=== PATIENT | male | born 1990 | race Caucasian/White ===

== ENCOUNTER → 2018-05-06 17:05 | Outpatient (CLI) | payer OTHER, MEDICAID, SELFPAY ==
[2018-05-06 18:07] LABS: Aspartate Aminotransferase 27 IU/L (17-59); BUN Creatinine Ratio 26.7 (6-22); Blood Urea Nitrogen 16 mg/dL (9-20); Calcium 10.4 mg/dL (8.4-10.2); Carbon Dioxide 25 mmol/L (22-32); Chloride 102 mmol/L (98-107); Cholesterol 134 mg/dL (140-199); Estimated Glomerular Filt Rate > 60.0 mL/min (>60); Glucose 167 mg/dL (70-100); HDL Cholesterol 25 mg/dL (40-60); HEMOLYSIS < 15 (0-50); LDL Cholesterol Calculated 38 mg/dL (<100); Potassium 4.4 mmol/L (3.4-5.1); Sodium 143 mmol/L (137-145); Triglycerides 356 mg/dL (35-150)
== END ==
PROVIDERS: Family Provider Internal Medicine; PCP Internal Medicine; Visit Provider Internal Medicine
DX: E78.00 Pure hypercholesterolemia, unspecified (principal); E11.9 Type 2 diabetes mellitus without complications
CPT/HCPCS: 36415; 80048; 80061; 83036; 84450

== ENCOUNTER 2018-06-23 19:36 | Emergency (ER) | payer OTHER, MEDICAID, SELFPAY ==
[2018-06-23 19:45] VITALS: BP 125/80; PULSE 87; RESP 19; TEMP 36.8; O2SAT 98; BMI 32.0
[2018-06-23] MEDS: ONDANSETRON 4 MG/2 ML INJ IV (20:50)
[2018-06-23] MEDS: PANTOPRAZOLE 40 MG VIAL IV (20:50)
[2018-06-23 20:56] LABS: Add Manual Diff / Slide Review NO; Basophils Percent Auto 0.9 % (0-2); Eosinophils Percent Auto 2.5 % (2-4); Hematocrit 44.6 % (41-53); Hemoglobin 15.5 g/dL (13.5-17.5); Lymphocytes Percent Auto 40.5 % (25-40); Mean Corpuscular HGB Conc 34.8 % (30-36); Mean Corpuscular Hemoglobin 27.8 PG (26-34); Mean Corpuscular Volume 80.1 fL (80-100); Monocytes Percent Auto 7.1 % (3-14); Neutrophils Absolute Auto 2800 /uL (3000-5900); Platelet Count 172 X10^3/uL (150-400); Red Blood Cell Count 5.57 X10^6/uL (4.5-5.9); Red Cell Distribution Width 13.7 % (11.6-14.8); White Blood Cell Count 5.8 X10^3/uL (4.5-11.0)
[2018-06-23 21:07] LABS: INR 1.1 (0.9-1.3); Prothrombin Time 12.3 SECONDS (10.1-12.7)
[2018-06-23 21:09] LABS: PTT Partial Thromboplastin Tim 31 SECONDS (26.4-36.2)
[2018-06-23 21:12] LABS: Alanine Aminotransferase 41 IU/L (21-72); Albumin 5.3 g/dL (3.5-5.0); Albumin Globulin Ratio 2.1 (1.0-2.8); Alkaline Phosphatase 45 U/L (38-126); Aspartate Aminotransferase 36 IU/L (17-59); BUN Creatinine Ratio 24.3 (6-22); Bilirubin Total 0.7 mg/dL (0.2-1.3); Blood Urea Nitrogen 17 mg/dL (9-20); Calcium 10.1 mg/dL (8.4-10.2); Carbon Dioxide 24 mmol/L (22-32); Chloride 100 mmol/L (98-107); Estimated Glomerular Filt Rate > 60.0 mL/min (>60); Globulin 2.5 g/dL (1.7-4.1); Glucose 156 mg/dL (70-100); HEMOLYSIS < 15 (0-50); Potassium 4.1 mmol/L (3.4-5.1); Sodium 140 mmol/L (137-145); Total Protein 7.8 g/dL (6.3-8.2)
[2018-06-23 21:30] VITALS: BP 114/70; PULSE 74; RESP 22; O2SAT 99
[2018-06-23 22:00] VITALS: BP 122/74; PULSE 75; RESP 14; O2SAT 100
--- NOTE | 2018-06-23 22:14 | ED_ITS ---
HPI - GI Bleed General Chief complaint: GI Bleed Stated complaint: lots of blood in stool, feels faint Time Seen by Provider: 06/23/18 20:21 Source: patient and family Mode of arrival: ambulatory Limitations: no limitations History of Present Illness HPI Narrative: 27-year-old nonsmoker presents with both parents with a chief complaint of painless bright red blood per rectum prior to arrival. He denies any nausea or vomiting. He denies any history of the same. He does admit to some generalized abdominal discomfort that is crampy in nature. He denies use of blood thinners or significant Motrin. He drinks no alcohol. He denies any recent significant straining on the toilet with bowel movements MD complaint: gross hematochezia Onset (ago): hour(s) Pain Consistency: intermittent Severity: moderate Relieving factors: none Exacerbating factors: none Associated symptoms: abdominal pain Treatments Prior to Arrival: none Related Data Home Medications Medication Instructions Recorded Confirmed sertraline 100 mg PO QAM #0 01/06/11 BORON/CA/CU/MG/MN/VIT D/ZINC 1 tab PO Q DAY #0 09/22/11 (#CALCIUM 600 + MINERALS) CYANOCOBALAMIN (VITAMIN B-12) 1,000 mcg PO QDAY #0 09/22/11 FENOFIBRATE (#TRICOR) 160 mg PO QDAY #0 03/06/12 divalproex [Depakote ER] 1,000 mg PO QDAY #0 01/12/17 divalproex [Depakote ER] 250 mg PO QDAY #0 01/12/17 magnesium citrate 250 mg PO QDAY #0 01/12/17 metformin [Glucophage XR] 1,000 mg PO BID #0 01/12/17 Allergies Allergy/AdvReac Type Severity Reaction Status Date / Time Penicillins [PENICILLINS] Allergy Severe rash Verified 06/23/18 19:51 Sulfa (Sulfonamide Allergy Severe bones itch Verified 06/23/18 19:51 Antibiotics) [SULFA (SULFONAMIDE ANTIBIOTICS)] ziprasidone [ZIPRASIDONE] AdvReac Severe locked Verified 06/23/18 19:51 muscles, hypotension Review of Systems Review of Systems All systems reviewed & are unremarkable except as noted in HPI and below Constitutional Denies chills, Denies fever(s), Denies lethargy and Denies weakness Eyes Denies change in vision, Denies eye discharge, Denies irritation and Denies loss of vision ENT Ears, Nose, Mouth, and Throat: Denies change in voice, Denies neck pain and Denies sore throat Cardiovascular Denies chest pain, Denies irregular heart rhythm, Denies lightheadedness, Denies palpitations, Denies dyspnea, Denies dyspnea on exertion and Denies orthopnea Respiratory Denies cough, Denies dyspnea, Denies dyspnea on exertion and Denies wheezing Gastrointestinal Gastrointestinal: Denies abdominal pain, Reports hematochezia, Denies change in bowel habits, Denies diarrhea, Denies nausea and Denies vomiting Genitourinary Denies hematuria, Denies flank pain, Denies urinary incontinence and Denies urinary urgency Musculoskeletal Denies neck pain Integumentary/Breasts Denies pruritus, Denies erythema, Denies rash and Denies wounds Neurologic Denies confusion, Denies loss of vision and Denies weakness Psychiatric Denies anxiety, Denies confusion, Denies depression, Denies homicidal ideation and Denies suicidal ideation Endocrine Denies palpitations Hematologic/Lymphatic Denies easy bruising Allergic/Immunologic Denies wheezing [facility] Social History Smoking Status: Never smoker Exam Narrative Exam Narrative: GENERAL: This is a well-nourished, well-developed patient, in mild distress. HEAD: Atraumatic. Normocephalic. No temporal or scalp tenderness. EYES: Pupils equal round and reactive. Extraocular motions intact. No scleral icterus. No injection or drainage. ENT: Nose without bleeding, purulent drainage or septal hematoma. Throat without erythema, tonsillar hypertrophy or exudate. Uvula midline. Airway patent. NECK: Trachea midline. No JVD or lymphadenopathy. Supple, nontender, no meningeal signs. CARDIOVASCULAR: Regular rate and rhythm without murmurs, gallops, or rubs. RESPIRATORY: Clear to auscultation. Breath sounds equal bilaterally. No wheezes , rales, or rhonchi. GASTROINTESTINAL: Abdomen soft, non-tender, nondistended. No hepato-splenomegaly , or palpable masses. No guarding. RECTAL: Very minimal bright red blood, no obvious active bleeding. No hemorrhoid, fissure or significant tenderness noted on exam EXTREMITIES: No clubbing, cyanosis, or edema. No joint tenderness, effusion, or edema noted. BACK: Nontender without deformity or crepitance. No flank tenderness. NEURO: AOx3. SKIN: No rash or erythema. Initial Vital Signs Initial Vital Signs: Vital Signs Temperature 98.3 F 06/23/18 19:45 Pulse Rate 87 06/23/18 19:45 Respiratory Rate 19 06/23/18 19:45 Blood Pressure 125/80 06/23/18 19:45 Pulse Oximetry 98 06/23/18 19:45 Course Orders Ordered: ED Orders 06/23/18 20:36 Complete Blood Count AUTO DIFF Stat Comprehensive Metabolic Panel Stat Partial Thromboplastin Time Stat Prothrombin Time INR Stat Type and Screen Stat Discontinued Medications Ondansetron HCl (Zofran) 4 mg IV NOW ONE Stop: 06/23/18 20:32 Last Admin: 06/23/18 20:50 Dose: 4 mg Pantoprazole Sodium (Protonix) 40 mg IV NOW ONE Stop: 06/23/18 20:32 Last Admin: 06/23/18 20:50 Dose: 40 mg Vital Signs - 8 hr 06/23/18 21:30 06/23/18 22:00 Pulse Rate 74 75 Respiratory Rate 22 14 Blood Pressure [Right Arm] 114/70 122/74 Pulse Oximetry 99 100 MDM - GI Bleed Differential Diagnosis Likely hemorrhoids, infectious diarrhea, esophageal varices, Susan-Evans syndrome, Upper gastrointestinal hemorrhage, Lower gastrointestinal hemorrhage, hematochezia, melena and anal fissure Medical Records Attestation: I reviewed the patient's medical records. Lab Data Attestation: I reviewed the patient's lab results. Result diagrams: 06/23/18 20:36 06/23/18 20:36 Lab Results 06/23/18 06/23/18 06/23/18 Range/Units 20:36 20:36 20:36 WBC 5.8 (4.5-11.0) X10^3/uL RBC 5.57 (4.5-5.9) X10^6/uL Hgb 15.5 (13.5-17.5) g/dL Hct 44.6 (41-53) % MCV 80.1 (80-100) fL MCH 27.8 (26-34) PG MCHC 34.8 (30-36) % RDW 13.7 (11.6-14.8) % Plt Count 172 (150-400) X10^3/uL Neut % (Auto) 49.0 L (50-75) % Lymph % (Auto) 40.5 H (25-40) % [place] % (Auto) 7.1 (3-14) % Eos % (Auto) 2.5 (2-4) % Baso % (Auto) 0.9 (0-2) % Neut # (Auto) 2800 L (7465-4122) /uL PT 12.3 (10.1-12.7) SECONDS INR 1.1 (0.9-1.3) APTT 31 (26.4-36.2) SECONDS Sodium 140 (137-145) mmol/L Potassium 4.1 (3.4-5.1) mmol/L Chloride 100 (98-107) mmol/L Carbon Dioxide 24 (22-32) mmol/L BUN 17 (9-20) mg/dL Creatinine 0.70 (0.66-1.25) mg/dL Estimated GFR > 60.0 (>60) mL/min BUN/Creatinine Ratio 24.3 H (6-22) Glucose 156 H (70-100) mg/dL Calcium 10.1 (8.4-10.2) mg/dL Total Bilirubin 0.7 (0.2-1.3) mg/dL AST 36 (17-59) IU/L ALT 41 (21-72) IU/L Alkaline Phosphatase 45 (38-126) U/L Total Protein 7.8 (6.3-8.2) g/dL Albumin 5.3 H (3.5-5.0) g/dL Globulin 2.5 (1.7-4.1) g/dL Albumin/Globulin Ratio 2.1 (1.0-2.8) Blood Type Antibody Screen 06/23/18 Range/Units 20:36 WBC (4.5-11.0) X10^3/uL RBC (4.5-5.9) X10^6/uL Hgb (13.5-17.5) g/dL Hct (41-53) % MCV (80-100) fL MCH (26-34) PG MCHC (30-36) % RDW (11.6-14.8) % Plt Count (150-400) X10^3/uL Neut % (Auto) (50-75) % Lymph % (Auto) (25-40) % [place] % (Auto) (3-14) % Eos % (Auto) (2-4) % Baso % (Auto) (0-2) % Neut # (Auto) (8001-0329) /uL PT (10.1-12.7) SECONDS INR (0.9-1.3) APTT (26.4-36.2) SECONDS Sodium (137-145) mmol/L Potassium (3.4-5.1) mmol/L Chloride (98-107) mmol/L Carbon Dioxide (22-32) mmol/L BUN (9-20) mg/dL Creatinine (0.66-1.25) mg/dL Estimated GFR (>60) mL/min BUN/Creatinine Ratio (6-22) Glucose (70-100) mg/dL Calcium (8.4-10.2) mg/dL Total Bilirubin (0.2-1.3) mg/dL AST (17-59) IU/L ALT (21-72) IU/L Alkaline Phosphatase (38-126) U/L Total Protein (6.3-8.2) g/dL Albumin (3.5-5.0) g/dL Globulin (1.7-4.1) g/dL Albumin/Globulin Ratio (1.0-2.8) Blood Type A Negative Antibody Screen Negative Point of Care Testing Stool Occult Blood Positive MDM Narrative Medical decision making narrative: 27-year-old male presents with painless of rectal bleeding, normal vitals and normal labs. Minimal bleeding during visit, patient feeling well and will go home with parents, to follow up with primary care provider for a likely colonoscopy as an outpatient Discharge Plan Departure Patient Disposition: Home Clinical Impression: Bright red rectal bleeding Discharge Date/Time: 06/23/18 22:32 Interventions: ED Discharge Assessment Last Done: 06/23/18 22:31 Instructions: DI for Rectal Bleeding Activity Restrictions/Additional Instructions: *You have been diagnosed with [ rectal bleeding ] *What to do: *Follow up with your primary care provider in 2-3 days, call for an appointment. Let them know you were seen in the Emergency Department and that we ask that you be seen in follow up. 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 You will likely need a colonoscopy and at this hospital performs that procedure. *Return to ER if you should have any new, worsening or concerning symptoms such as increased bleeding, pain, fever over 101F or other bothersome symptoms *Drink plenty of fluids with frequent small sips. * For the next 24 hours a clear liquid diet is advised. After that please employ a brat diet which would include bananas, rice, apples, toast. Prescriptions: No Action sertraline 100 MG tablet 100 mg PO QAM Qty: 0 RF: 0 BORON/CA/CU/MG/MN/VIT D/ZINC (#CALCIUM 600 + MINERALS) 1 tab PO Q DAY Qty: 0 RF: 0 CYANOCOBALAMIN (VITAMIN B-12) 1,000 mcg PO QDAY Qty: 0 RF: 0 FENOFIBRATE (#TRICOR) 160 mg PO QDAY Qty: 0 RF: 0 divalproex [Depakote ER] 500 MG tablet extended release 24 hr 1,000 mg PO QDAY Qty: 0 RF: 0 divalproex [Depakote ER] 250 MG tablet extended release 24 hr 250 mg PO QDAY Qty: 0 RF: 0 metformin [Glucophage XR] 500 MG tablet extended release 24 hr 1,000 mg PO BID Qty: 0 RF: 0 magnesium citrate 100 MG tablet 250 mg PO QDAY Qty: 0 RF: 0 Referrals: Can Askew MD [Primary Care Provider] - Trixie Guillen MD [Physician] -
== END 2018-06-23 22:32 | disposition home or self-care (01) ==
PROVIDERS: Emergency Provider Emergency Medicine; Family Provider Internal Medicine; PCP Internal Medicine
DX: K62.5 Hemorrhage of anus and rectum (principal)
CPT/HCPCS: 36591; 80053; 82272; 85025; 85610; 85730; 86850; 86900; 86901; 96374; 96375; 99283; 99284; C9113; J2405

== ENCOUNTER 2018-07-24 16:18 | Emergency (ER) | payer OTHER, MEDICAID, SELFPAY ==
[2018-07-24 16:21] VITALS: BP 137/89; PULSE 93; RESP 20; TEMP 36.7; O2SAT 96; BMI 33.0
[2018-07-24] MEDS: ONDANSETRON 4 MG/2 ML INJ IV (16:36)
[2018-07-24] MEDS: diphenhydrAMINE 50 MG/ML VIAL IV (16:42)
[2018-07-24 16:51] LABS: Add Manual Diff / Slide Review NO; Basophils Percent Auto 0.9 % (0-2); Hematocrit 42.8 % (41-53); Hemoglobin 14.8 g/dL (13.5-17.5); Lymphocytes Percent Auto 40.2 % (25-40); Mean Corpuscular HGB Conc 34.7 % (30-36); Mean Corpuscular Hemoglobin 27.7 PG (26-34); Mean Corpuscular Volume 79.8 fL (80-100); Monocytes Percent Auto 7.8 % (3-14); Neutrophils Absolute Auto 2400 /uL (3000-5900); Neutrophils Percent Auto 49.1 % (50-75); Platelet Count 170 X10^3/uL (150-400); Red Blood Cell Count 5.36 X10^6/uL (4.5-5.9); Red Cell Distribution Width 14.1 % (11.6-14.8); White Blood Cell Count 4.8 X10^3/uL (4.5-11.0)
--- NOTE | 2018-07-24 16:54 | DI.CT.S_ITS ---
PROCEDURE: CT ABDOMEN PELVIS W CON INDICATIONS: rlq pain TECHNIQUE: After the administration of intravenous contrast, 5 mm thick sections acquired from the diaphragm to the symphysis. 5 mm coronal and sagittal reformats were acquired. For radiation dose reduction, the following was used: automated exposure control, adjustment of mA and/or kV according to patient size. COMPARISON: None. FINDINGS: Image quality: Excellent. ABDOMEN: Lung bases: Lung bases are clear. Heart size is normal. Solid organs: Liver is normal in size and enhancement. Mild, diffuse fatty infiltration of the liver. Gallbladder is within normal limits. Biliary system is non dilated. Pancreas enhances normally. Spleen is normal in size and enhancement. No adrenal nodules. Kidneys demonstrate normal size and enhancement, without hydronephrosis. Peritoneum and bowel: Bowel loops demonstrate normal wall thickness and caliber. No free fluid or air. The appendix is normal. Nodes and vessels: No retroperitoneal or mesenteric adenopathy by size criteria. Aorta and inferior vena cava are normal in size. Miscellaneous: Small fat containing umbilical hernia. PELVIS: Genitourinary: Bladder wall thickness is normal. Miscellaneous: No inguinal hernias or adenopathy. Bones: No suspicious bony lesions. No vertebral body compression fractures. IMPRESSION: 1. The appendix is normal. 2. No free fluid or free air. 3. No dilated loops of bowel. 4. Hepatic steatosis. Dictated by: Devorah Owens MD, PhD on 07/24/2018 at 17:42 Approved by: Devorah Owens MD, PhD on 07/24/2018 at 17:44
[2018-07-24 16:58] LABS: INR 1.1 (0.9-1.3); Prothrombin Time 12.2 SECONDS (10.1-12.7)
[2018-07-24 17:00] LABS: PTT Partial Thromboplastin Tim 31 SECONDS (26.4-36.2)
[2018-07-24 17:04] LABS: Alanine Aminotransferase 29 IU/L (21-72); Albumin 5.1 g/dL (3.5-5.0); Albumin Globulin Ratio 2.4 (1.0-2.8); Alkaline Phosphatase 43 U/L (38-126); Aspartate Aminotransferase 27 IU/L (17-59); BUN Creatinine Ratio 21.4 (6-22); Bilirubin Total 0.8 mg/dL (0.2-1.3); Blood Urea Nitrogen 15 mg/dL (9-20); Calcium 9.9 mg/dL (8.4-10.2); Carbon Dioxide 20 mmol/L (22-32); Chloride 99 mmol/L (98-107); Estimated Glomerular Filt Rate > 60.0 mL/min (>60); Globulin 2.1 g/dL (1.7-4.1); Glucose 273 mg/dL (70-100); HEMOLYSIS 16 (0-50); Lipase 99 U/L (23-300); Sodium 140 mmol/L (137-145); Total Protein 7.2 g/dL (6.3-8.2)
--- NOTE | 2018-07-24 17:53 | ED_ITS ---
HPI - Abdominal Pain General Chief Complaint: Abdominal Pain Stated Complaint: cramps and unsteady on his feet Time Seen by Provider: 07/24/18 16:35 Source: patient Mode of arrival: ambulatory Limitations: no limitations History of Present Illness HPI narrative: Patient is a 27-year-old male who presents with abdominal pain. He said it started earlier today it seems to be getting worse. He does have a history of dystonia of it is currently having an episode. He has not yet taken anything for and is requesting some Benadryl. He feels a little nauseated no vomiting no diarrhea. He has not had any fever. He does have a colonoscopy scheduled because he had an episode of bloody diarrhea a few months ago. He says he is no longer having bloody diarrhea. MD complaint: abdominal pain Related Data Home Medications Medication Instructions Recorded Confirmed sertraline 200 mg PO DAILY #0 01/06/11 07/24/18 divalproex [Depakote ER] 1,000 mg PO QPM #0 01/12/17 07/24/18 aripiprazole 10 mg PO DAILY 07/24/18 07/24/18 benztropine 0.5 mg PO BID 07/24/18 07/24/18 benztropine 1 mg PO PRN PRN 07/24/18 07/24/18 chromium picolinate 200 mcg PO BID 07/24/18 07/24/18 clonazepam 0.5 mg PO QAM 07/24/18 07/24/18 cyanocobalamin (vitamin B-12) 1,000 mcg PO DAILY 07/24/18 07/24/18 [Vitamin B-12] diphenhydramine HCl 50 mg PO PRN PRN 07/24/18 07/24/18 divalproex 250 mg PO QAM 07/24/18 07/24/18 fenofibrate 160 mg PO DAILY 07/24/18 07/24/18 lorazepam 1 mg PO PRN PRN 07/24/18 07/24/18 magnesium citrate 400 mg PO QPM 07/24/18 07/24/18 metformin 1,000 mg PO BID 07/24/18 07/24/18 omega 7-[id number]-wdu-fish oil [Fish Oil] 2,000 mg PO BID 07/24/18 07/24/18 quetiapine 75 mg PO QPM 07/24/18 07/24/18 Previous Rx's Medication Instructions Recorded ondansetron 4 mg PO Q8H PRN #10 tab 07/24/18 Allergies Allergy/AdvReac Type Severity Reaction Status Date / Time Penicillins [PENICILLINS] Allergy Severe rash Verified 06/23/18 19:51 Sulfa (Sulfonamide Allergy Severe bones itch Verified 06/23/18 19:51 Antibiotics) [SULFA (SULFONAMIDE ANTIBIOTICS)] ziprasidone [ZIPRASIDONE] AdvReac Severe locked Verified 06/23/18 19:51 muscles, hypotension Review of Systems Review of Systems GENERAL: Denies chills, fatigue, malaise, fever, sweats, travel HEENT: Denies sinus pain, ear pain, sore throat, difficulty swallowing, neck pain RESPIRATORY: Denies dyspnea, cough, wheezing, hemoptysis, sputum. CARDIOVASCULAR: Denies chest pain, palpitations, orthopnea, edema GASTROINTESTINAL: See HPI : Denies dysuria, frequency, incontinence, hematuria, urinary retention, flank pain. MUSCULOSKELETAL: Denies weakness, joint pain, or bony pain SKIN: No rash, no erythema, no pruritus NEUROLOGIC: Denies weakness, dizziness, headache, numbness, change in speech, confusion PSYCHIATRIC: No concerning psychosocial issues. 12 point review of systems is negative except for those stated above and HPI [facility] Medical History Dystonia (Acute) Social History Smoking Status: Never smoker Exam Initial Vital Signs Initial Vital Signs: Vital Signs Temperature 98.1 F 07/24/18 16:21 Pulse Rate 93 H 07/24/18 16:21 Respiratory Rate 20 07/24/18 16:21 Blood Pressure 137/89 07/24/18 16:21 Pulse Oximetry 96 07/24/18 16:21 GENERAL: Alert well-appearing young male and in no acute distress. HEENT: Head atraumatic,EOMI, pupils reactive, face symmetric, moist mucous membranes CARDIOVASCULAR: Regular rate and rhythm without murmurs, rubs or gallops. RESPIRATORY: Breath sounds equal bilaterally, no wheezes rales or rhonchi. ABDOMEN: Soft, mild right lower quadrant pain no guarding or rebound negative La sign : No CVA tenderness EXTREMITIES: Normal range of motion, no clubbing or edema. Neurovascularly intact NEUROLOGICAL: Alert and oriented x4.Normal gait and speech. Cranial nerves II through XII grossly intact. SKIN: Warm, dry, no laceration, no petechiae, no rashes or lesions. Course Orders Ordered: ED Orders 07/24/18 16:30 Complete Blood Count AUTO DIFF Stat Comprehensive Metabolic Panel Stat Lipase Stat Partial Thromboplastin Time Stat Prothrombin Time INR Stat 07/24/18 16:54 CT abdomen pelvis w con Stat Discontinued Medications Diphenhydramine HCl (Benadryl) 50 mg IV NOW ONE Stop: 07/24/18 16:43 Last Admin: 07/24/18 16:42 Dose: 50 mg Ondansetron HCl (Zofran) 4 mg IV NOW ONE Stop: 07/24/18 16:28 Last Admin: 07/24/18 16:36 Dose: 4 mg Vital Signs - 8 hr 07/24/18 16:21 Temperature 98.1 F Pulse Rate 93 H Respiratory Rate 20 Blood Pressure 137/89 Pulse Oximetry 96 MDM - Abdominal Pain Lab Data Attestation: I reviewed the patient's lab results. Result diagrams: 07/24/18 16:30 07/24/18 16:30 Lab Results 07/24/18 07/24/18 07/24/18 Range/Units 16:30 16:30 16:30 WBC 4.8 (4.5-11.0) X10^3/uL RBC 5.36 (4.5-5.9) X10^6/uL Hgb 14.8 (13.5-17.5) g/dL Hct 42.8 (41-53) % MCV 79.8 L (80-100) fL MCH 27.7 (26-34) PG MCHC 34.7 (30-36) % RDW 14.1 (11.6-14.8) % Plt Count 170 (150-400) X10^3/uL Neut % (Auto) 49.1 L (50-75) % Lymph % (Auto) 40.2 H (25-40) % [place] % (Auto) 7.8 (3-14) % Eos % (Auto) 2.0 (2-4) % Baso % (Auto) 0.9 (0-2) % Neut # (Auto) 2400 L (1792-5691) /uL PT 12.2 (10.1-12.7) SECONDS INR 1.1 (0.9-1.3) APTT 31 (26.4-36.2) SECONDS Sodium 140 (137-145) mmol/L Potassium 4.0 (3.4-5.1) mmol/L Chloride 99 (98-107) mmol/L Carbon Dioxide 20 L (22-32) mmol/L BUN 15 (9-20) mg/dL Creatinine 0.70 (0.66-1.25) mg/dL Estimated GFR > 60.0 (>60) mL/min BUN/Creatinine Ratio 21.4 (6-22) Glucose 273 H (70-100) mg/dL Calcium 9.9 (8.4-10.2) mg/dL Total Bilirubin 0.8 (0.2-1.3) mg/dL AST 27 (17-59) IU/L ALT 29 (21-72) IU/L Alkaline Phosphatase 43 (38-126) U/L Total Protein 7.2 (6.3-8.2) g/dL Albumin 5.1 H (3.5-5.0) g/dL Globulin 2.1 (1.7-4.1) g/dL Albumin/Globulin Ratio 2.4 (1.0-2.8) Lipase 99 (23-300) U/L Point of care testing: Urine Dip Bedside Urine Glucose 1000 mg/dl Bedside Urine Bilirubin - Negative Bedside Urine Ketone - Negative Urine Specific [place] 1.015 Bedside Urine Occult Blood - Negative Bedside Urine pH 6.0 Bedside Urine Protein - Negative Bedside Urine Urobilinogen +/- 1mg Bedside Urine Nitrite - Negative Bedside Urine Leukocytes - Negative Esterase Imaging Data CT scan - abdomen: Radiologist's impression: PROCEDURE: CT ABDOMEN PELVIS W CON INDICATIONS: rlq pain TECHNIQUE: After the administration of intravenous contrast, 5 mm thick sections acquired from the diaphragm to the symphysis. 5 mm coronal and sagittal reformats were acquired. For radiation dose reduction, the following was used: automated exposure control, adjustment of mA and/or kV according to patient size. COMPARISON: None. FINDINGS: Image quality: Excellent. ABDOMEN: Lung bases: Lung bases are clear. Heart size is normal. Solid organs: Liver is normal in size and enhancement. Mild, diffuse fatty infiltration of the liver. Gallbladder is within normal limits. Biliary system is non dilated. Pancreas enhances normally. Spleen is normal in size and enhancement. No adrenal nodules. Kidneys demonstrate normal size and enhancement, without hydronephrosis. Peritoneum and bowel: Bowel loops demonstrate normal wall thickness and caliber. No free fluid or air. The appendix is normal. Nodes and vessels: No retroperitoneal or mesenteric adenopathy by size criteria. Aorta and inferior vena cava are normal in size. Miscellaneous: Small fat containing umbilical hernia. PELVIS: Genitourinary: Bladder wall thickness is normal. Miscellaneous: No inguinal hernias or adenopathy. Bones: No suspicious bony lesions. No vertebral body compression fractures. IMPRESSION: 1. The appendix is normal. 2. No free fluid or free air. 3. No dilated loops of bowel. 4. Hepatic steatosis. Dictated by: Devorah Owens MD, PhD on 07/24/2018 at 17:42 MDM Narrative Medical decision making narrative: Patient's blood work and CT are reassuring. He does feel little bit better on the Benadryl has worked for his dystonia. He does feel ready and able to go home. Discharge Plan Departure Patient Disposition: Home Clinical Impression: Abdominal pain Instructions: DI for Abdominal Pain-Adult Activity Restrictions/Additional Instructions: *You have been diagnosed with abdominal pain *What to do: Blood work and CT scan are reassuring today no appendicitis. *Continue to take medications as directed Zofran every 6-8 hours if needed for nausea *Follow up with your primary care provider in 2-3 days *Return to ER if you should have increasing pain, persistent vomiting or any new , worsening or concerning symptoms Prescriptions: New ondansetron 4 mg tablet,disintegrating 4 mg PO Q8H PRN (Reason: nausea and vomiting) Qty: 10 RF: 0 No Action sertraline 100 MG tablet 200 mg PO DAILY Qty: 0 RF: 0 divalproex [Depakote ER] 500 MG tablet extended release 24 hr 1,000 mg PO QPM Qty: 0 RF: 0 quetiapine 25 mg tablet 75 mg PO QPM RF: 0 metformin 1,000 mg tablet 1,000 mg PO BID RF: 0 aripiprazole 10 mg tablet 10 mg PO DAILY RF: 0 fenofibrate 160 mg tablet 160 mg PO DAILY RF: 0 benztropine 0.5 mg Tablet 0.5 mg PO BID RF: 0 clonazepam 0.5 mg tablet 0.5 mg PO QAM RF: 0 cyanocobalamin (vitamin B-12) [Vitamin B-12] 1,000 mcg Tablet 1,000 mcg PO DAILY RF: 0 diphenhydramine HCl 25 mg Capsule 50 mg PO PRN PRN (Reason: dystonia/[place]) RF: 0 benztropine 1 mg tablet 1 mg PO PRN PRN (Reason: dystonia/[place]) RF: 0 chromium picolinate 200 mcg Tablet 200 mcg PO BID RF: 0 lorazepam 1 mg tablet 1 mg PO PRN PRN (Reason: dystonia/[place]) RF: 0 divalproex 250 mg tablet extended release 24 hr 250 mg PO QAM RF: 0 omega 3-tbm-xco-fish oil [Fish Oil] 1,000 mg (120 mg-180 mg) Capsule 2,000 mg PO BID RF: 0 magnesium citrate 400 mg 400 mg PO QPM RF: 0 Referrals: Can Askew MD [Primary Care Provider] -
[2018-07-24 18:17] VITALS: BP 112/65; PULSE 88; RESP 20; O2SAT 98
[2018-07-24 18:40] VITALS: BP 123/63; PULSE 96; RESP 20; O2SAT 97
== END 2018-07-24 18:41 | disposition home or self-care (01) ==
PROVIDERS: Emergency Provider Emergency Medicine; Family Provider Internal Medicine; PCP Internal Medicine
DX: R10.9 Unspecified abdominal pain (principal)
CPT/HCPCS: 36591; 74177; 80053; 81003; 83690; 85025; 85610; 85730; 96374; 96375; 99283; 99285; J1200; J2405; Q9967

== ENCOUNTER 2018-07-31 12:05 | Day surgery (SDC) | payer OTHER, MEDICAID, SELFPAY ==
[2018-07-31] VITALS (7 sets, daily range): BP systolic 99–129; BP diastolic 60–81; PULSE 66–81; RESP 10–18; TEMP 36.2–36.8; O2SAT 93–98; BMI 31.6
--- NOTE | 2018-07-31 12:24 | PM.PREOP ---
Pre-operative Note Interval Note Pre-op Check: Yes History & Physical Reviewed by Physician Changes: No ASA Class (for procedural sedation): II
[2018-07-31] MEDS: SODIUM CHLORIDE 0.9% 1,000 ML 100 ML IV (12:37)
--- NOTE | 2018-07-31 12:58 | PM.OP.ENDO ---
Operative Date/Time/Diagnoses Date of procedure: 07/31/18 Time of procedure: 12:59 Pre-op diagnosis: see indication and findings Post-op diagnosis: same Procedure & Clinicians Study performed: Colonoscopy Same procedure as scheduled: Yes Indications: Abdominal pain and rectal bleeding Surgeon: Jose Marvin Procedure Notes Procedure in detail: After informed consent was obtained the patient was placed in left lateral decubitus position. The video colonoscope was introduced the rectum and slowly advanced to the cecum. On slow withdrawal mucosa was carefully examined. The preparation was good. The scope was removed. The patient tolerated the procedure well. Blood loss none Complications none Sedation Total sedation time 21 min Versed 8 mg fentanyl 100 mcg IV titration Findings 1. Normal colonoscopy to cecum other than mild internal hemorrhoids. Since most of his symptoms have gone away a presumed that this was from significant internal hemorrhoids flare at that time would suggest no further workup at this time. He should call if he has recurrence symptoms.
[2018-07-31] MEDS: fentaNYL 250 MCG/5 ML INJ IV (13:20)
[2018-07-31] MEDS: MIDAZOLAM 5 MG/5 ML VIAL IV (13:20)
== END 2018-07-31 15:11 ==
LOC: ENDO 12:06
PROVIDERS: Family Provider Internal Medicine; PCP Internal Medicine; Visit Provider Internal Medicine Gastroenterology
PROC: 0DJD8ZZ Inspection of Lower Intestinal Tract, Via Natural or Artificial Opening Endoscopic (ICD-10-PCS; CPT 45378; principal; 2018-07-31 13:00)
DX: K62.5 Hemorrhage of anus and rectum (principal); R10.9 Unspecified abdominal pain; K64.8 Other hemorrhoids; E11.9 Type 2 diabetes mellitus without complications; F98.8 Other specified behavioral and emotional disorders with onset usually occurring in childhood and adolescence; Z79.84 Long term (current) use of oral hypoglycemic drugs
CPT/HCPCS: 45378; J2250; J3010

== ENCOUNTER 2018-10-16 16:06 | Emergency (ER) | payer OTHER, MEDICAID, SELFPAY ==
[2018-10-16 16:07] VITALS: BP 126/83; PULSE 81; RESP 20; TEMP 36.8; O2SAT 100
--- NOTE | 2018-10-16 16:12 | DI.RAD.S_ITS ---
PROCEDURE: XR RIBS RT MIN 3V W CXR 1V INDICATIONS: injury pain TECHNIQUE: 2 views of the right ribs were acquired, along with a single view chest. COMPARISON: None. FINDINGS: Surgical changes and devices: None. Bones and chest wall: No fractures or dislocations. No suspicious bony lesions. Overlying soft tissues appear unremarkable. Lungs and pleura: Low lung volumes. No pleural effusions or pneumothorax. Lungs appear clear. Mediastinum: Mediastinal contours appear normal. Heart size is normal. IMPRESSION: No displaced right rib fractures. No radiographic evidence of acute chest trauma. Dictated by: Ana Vazquez M.D. on 10/16/2018 at 16:51 Approved by: Ana Vazquez M.D. on 10/16/2018 at 16:53
--- NOTE | 2018-10-16 16:12 | DI.RAD.S_ITS ---
PROCEDURE: XR HIP W PEL IF DONE RT 2V INDICATIONS: injury pain TECHNIQUE: AP pelvis with lateral view(s) of the right hip(s). COMPARISON: None. FINDINGS: Bones: No fractures or dislocations. Pelvic ring appears intact. No suspicious bony lesions. Soft tissues: The visualized bowel gas pattern is normal. No suspicious soft tissue calcifications. IMPRESSION: Intact pelvis and right hip. REFERENCE TEXT DELETE FROM FINAL REPORT Types of femoral neck fractures: subcapital, transcervical, basicervical, intertrochanteric, subtrochanteric. [place] classification system for periprosthetic femoral fractures: * [place] A: trochanteric fractures; subclassify as lesser or greater trochanter. * [place] B: femoral stem including medial buttress to just distal to stem tip. o B1: stable prosthesis, quality bone stock. o B2: loose prosthesis, quality bone stock. o B3: unstable prosthesis, poor quality bone stock. Describe location of bone loss: trochanteric, proximal stem, entire stem, or extensive. * [place] C: well distal to femoral stem, at least 4-5 cm. Dictated by: Ana Vazquez M.D. on 10/16/2018 at 16:51 Approved by: Ana Vazquez M.D. on 10/16/2018 at 16:51
--- NOTE | 2018-10-16 18:31 | ED.TRAUMA ---
HPI - Trauma General Chief Complaint: Extremity Injury, Upper Stated Complaint: slipped on ice pain right side of body Time Seen by Provider: 10/16/18 18:16 Source: patient Mode of arrival: ambulatory Limitations: no limitations History of Present Illness HPI narrative: 27M nonsmoker with history of psychiatric illness presents with ongoing pain in R sided ribs after a fall on the ice a few days ago. He fell on his R side and denies head, neck, or back pain. He denies SOB, cough or hemoptysis. He had been doing quite well with just Motrin and ice packs but today when climbing into bed he put pressure on his right arm while leaning into bed and felt a rapid onset of hot searing pain in his right-sided ribs. It hurts worse to take a deep breath and to move. Additionally when he fell he landed on his right hip and though he has been ambulating without difficulty he complains of pain in the hip. He denies any numbness, tingling or weakness. MD complaint: fall Onset (ago): day(s) Loss of Consciousness: no Location: chest Location - Extremities: Right: hip Severity: moderate Context: fall Treatments prior to arrival: cold therapy and other medications Related Data Home Medications Medication Instructions Recorded Confirmed sertraline 200 mg PO DAILY #0 01/06/11 10/16/18 divalproex [Depakote ER] 1,000 mg PO QPM #0 01/12/17 10/16/18 aripiprazole 10 mg PO DAILY 07/24/18 10/16/18 benztropine 0.5 mg PO BID 07/24/18 07/24/18 benztropine 1 mg PO BID 07/24/18 10/16/18 chromium picolinate 200 mcg PO BID 07/24/18 07/24/18 clonazepam 0.25 mg PO QAM 07/24/18 10/16/18 cyanocobalamin (vitamin B-12) 1,000 mcg PO DAILY 07/24/18 07/24/18 [Vitamin B-12] diphenhydramine HCl 50 mg PO PRN PRN 07/24/18 07/24/18 divalproex 250 mg PO QAM 07/24/18 10/16/18 fenofibrate 160 mg PO DAILY 07/24/18 10/16/18 lorazepam 1 mg PO PRN PRN 07/24/18 07/24/18 magnesium citrate 400 mg PO QPM 07/24/18 07/24/18 metformin 1,000 mg PO BID 07/24/18 10/16/18 omega 1-otd-xxo-fish oil [Fish Oil] 2,000 mg PO BID 07/24/18 07/24/18 quetiapine 75 mg PO QPM 07/24/18 10/16/18 divalproex 10/16/18 sitagliptin [Januvia] 50 mg PO DAILY 10/16/18 10/16/18 Previous Rx's Medication Instructions Recorded ondansetron 4 mg PO Q8H PRN #10 tab 07/24/18 ketorolac 10 mg PO Q6H PRN #14 tab 10/16/18 Allergies Allergy/AdvReac Type Severity Reaction Status Date / Time Penicillins [PENICILLINS] Allergy Severe rash Verified 07/31/18 12:27 Sulfa (Sulfonamide Allergy Severe bones itch Verified 07/31/18 12:27 Antibiotics) [SULFA (SULFONAMIDE ANTIBIOTICS)] ziprasidone [ZIPRASIDONE] AdvReac Severe locked Verified 07/31/18 12:27 muscles, hypotension Review of Systems Constitutional Denies chills, Denies fever(s), Denies lethargy and Denies weakness Eyes Denies change in vision, Denies eye discharge, Denies irritation and Denies loss of vision ENT Ears, Nose, Mouth, and Throat: Denies change in voice, Denies neck pain and Denies sore throat Cardiovascular Reports chest pain, Denies irregular heart rhythm, Denies lightheadedness, Denies palpitations, Denies dyspnea, Denies dyspnea on exertion and Denies orthopnea Respiratory Denies cough, Reports pain on inspiration, Denies dyspnea, Denies dyspnea on exertion and Denies wheezing Gastrointestinal Gastrointestinal: Denies abdominal pain, Denies change in bowel habits, Denies diarrhea, Denies nausea and Denies vomiting Genitourinary Denies hematuria, Denies flank pain, Denies urinary incontinence and Denies urinary urgency Musculoskeletal Reports abnormal gait, Reports limited range of motion and Denies neck pain Integumentary/Breasts Denies pruritus, Denies erythema, Denies rash and Denies wounds Neurologic Reports abnormal gait, Denies confusion, Denies loss of vision and Denies weakness Psychiatric Denies anxiety, Denies confusion, Denies depression, Denies homicidal ideation and Denies suicidal ideation Endocrine Denies palpitations Hematologic/Lymphatic Denies easy bruising Allergic/Immunologic Denies wheezing [facility] Medical History Dystonia (Acute) Social History household members: family Smoking Status: Never smoker Social History household members: family Smoking Status: Never smoker Exam Narrative Exam Narrative: GENERAL: 27-year-old male, alert and oriented, GCS 15, obviously in pain, rubbing his right-sided ribs HEAD: Atraumatic. Normocephalic. No temporal or scalp tenderness. EYES: Pupils equal round and reactive. Extraocular motions intact. No scleral icterus. No injection or drainage. ENT: Nose without bleeding, purulent drainage or septal hematoma. Throat without erythema, tonsillar hypertrophy or exudate. Uvula midline. Airway patent. NECK: Trachea midline. No JVD or lymphadenopathy. Supple, nontender, no meningeal signs. CARDIOVASCULAR: Regular rate and rhythm without murmurs, gallops, or rubs. RESPIRATORY: Clear to auscultation. Breath sounds equal bilaterally. No wheezes, rales, or rhonchi. Reproducible pain on right-sided ribs, yellowing bruising overlying right 12th rib GASTROINTESTINAL: Abdomen soft, non-tender, nondistended. No hepato-splenomegaly, or palpable masses. No guarding. EXTREMITIES: Tenderness to palpation of right hip but full range of motion including flexion, extension as well as internal and external rotation. This is closed, neurovascularly intact No clubbing, cyanosis, or edema. No joint tenderness, effusion, or edema noted. BACK: Nontender without deformity or crepitance. No flank tenderness. NEURO: AOx3. SKIN: No rash or erythema. Initial Vital Signs Initial Vital Signs: Vital Signs Temperature 98.2 F 10/16/18 16:07 Pulse Rate 81 10/16/18 16:07 Respiratory Rate 20 10/16/18 16:07 Blood Pressure 126/83 10/16/18 16:07 Pulse Oximetry 100 10/16/18 16:07 Course Orders Ordered: ED Orders 02/20/19 16:12 XR hip w pel if done RT 2V Stat XR ribs RT min 3V w CXR1V Stat Vital Signs - 8 hr 10/16/18 16:07 Temperature 98.2 F Pulse Rate 81 Respiratory Rate 20 Blood Pressure 126/83 Pulse Oximetry 100 MDM - Trauma Imaging Data Chest / Hip Xrays: Radiologist's impression: [address] [address] XRay Report Signed Patient: Bill Monique AMR#: [id number] : 1990Acct:[id number] Age/Sex: 27 / MDate of Service: 10/16/18 Loc: ED Accession Number: [id number] Procedure: XR ribs RT min 3V w CXR1V Ordering Provider: Simón Desai D.O. PROCEDURE: XR RIBS RT MIN 3V W CXR 1V INDICATIONS: injury pain TECHNIQUE: 2 views of the right ribs were acquired, along with a single view chest. COMPARISON: None. FINDINGS: Surgical changes and devices: None. Bones and chest wall: No fractures or dislocations. No suspicious bony lesions. Overlying soft tissues appear unremarkable. Lungs and pleura: Low lung volumes. No pleural effusions or pneumothorax. Lungs appear clear. Mediastinum: Mediastinal contours appear normal. Heart size is normal. IMPRESSION: No displaced right rib fractures. No radiographic evidence of acute chest trauma. Dictated by: Ana Vazquez M.D. on 10/16/2018 at 16:51 Approved by: Ana Vazquez M.D. on 10/16/2018 at 16:53 [facility] DATE TYPE STATUS AUTHOR Hx 10/16/18 16:12 Ana Vazquez 10/16/18 16:12 Ana Vazquez 07/31/18 12:05 07/24/18 16:54 Devorah Owens Kyle A 27, M1990 DEP ER, ED.LOC - Main ED Extremity Injury, Upper Search Chart NF - Not included in interaction checking rash bones itch locked muscles, hypotension ONSET Today 16:07 Bill Monique 27 M [address] [address] XRay Report Signed Patient: Bill Monique AMR#: [id number] : 1990Acct:[id number] Age/Sex: 27 / MDate of Service: 10/16/18 Loc: ED Accession Number: [id number] Procedure: XR hip w pel if done RT 2V Ordering Provider: Simón Desai D.O. PROCEDURE: XR HIP W PEL IF DONE RT 2V INDICATIONS: injury pain TECHNIQUE: AP pelvis with lateral view(s) of the right hip(s). COMPARISON: None. FINDINGS: Bones: No fractures or dislocations. Pelvic ring appears intact. No suspicious bony lesions. Soft tissues: The visualized bowel gas pattern is normal. No suspicious soft tissue calcifications. IMPRESSION: Intact pelvis and right hip. REFERENCE TEXT DELETE FROM FINAL REPORT Types of femoral neck fractures: subcapital, transcervical, basicervical, intertrochanteric, subtrochanteric. [place] classification system for periprosthetic femoral fractures: * [place] A: trochanteric fractures; subclassify as lesser or greater trochanter. * [place] B: femoral stem including medial buttress to just distal to stem tip. o B1: stable prosthesis, quality bone stock. o B2: loose prosthesis, quality bone stock. o B3: unstable prosthesis, poor quality bone stock. Describe location of bone loss: trochanteric, proximal stem, entire stem, or extensive. * [place] C: well distal to femoral stem, at least 4-5 cm. Dictated by: Ana Vazquez M.D. on 10/16/2018 at 16:51 Discharge Plan Departure Patient Disposition: Home Clinical Impression: Contusion of ribs Qualifiers: Encounter type: initial encounter Laterality: right Qualified Code(s): S20.211A - Contusion of right front wall of thorax, initial encounter Contusion of hip, right Qualifiers: Encounter type: initial encounter Qualified Code(s): S70.01XA - Contusion of right hip, initial encounter Discharge Date/Time: 10/16/18 18:38 Interventions: ED Discharge Assessment Last Done: 10/16/18 18:37 Activity Restrictions/Additional Instructions: *You have been diagnosed with [ Right hip and rib contusions from fall] *What to do: *Take medications as directed: your medication has been electronically transmitted to [facility] at your request *Follow up with your primary care provider in 2-3 days, call for an appointment. Let them know you were seen in the Emergency Department and that we ask that you be seen in follow up *Return to ER if you should have any new, worsening or concerning symptoms Prescriptions: New ketorolac 10 mg tablet 10 mg PO Q6H PRN (Reason: pain) Qty: 14 RF: 0 No Action sertraline 100 MG tablet 200 mg PO DAILY Qty: 0 RF: 0 divalproex [Depakote ER] 500 MG tablet extended release 24 hr 1,000 mg PO QPM Qty: 0 RF: 0 quetiapine 25 mg tablet 75 mg PO QPM RF: 0 metformin 1,000 mg tablet 1,000 mg PO BID RF: 0 aripiprazole 10 mg tablet 10 mg PO DAILY RF: 0 fenofibrate 160 mg tablet 160 mg PO DAILY RF: 0 benztropine 0.5 mg Tablet 0.5 mg PO BID RF: 0 clonazepam 0.5 mg tablet 0.25 mg PO QAM RF: 0 cyanocobalamin (vitamin B-12) [Vitamin B-12] 1,000 mcg Tablet 1,000 mcg PO DAILY RF: 0 diphenhydramine HCl 25 mg Capsule 50 mg PO PRN PRN (Reason: dystonia/[place]) RF: 0 benztropine 1 mg tablet 1 mg PO BID RF: 0 chromium picolinate 200 mcg Tablet 200 mcg PO BID RF: 0 lorazepam 1 mg tablet 1 mg PO PRN PRN (Reason: dystonia/[place]) RF: 0 divalproex 250 mg tablet extended release 24 hr 250 mg PO QAM RF: 0 omega 6-lsl-dda-fish oil [Fish Oil] 1,000 mg (120 mg-180 mg) Capsule 2,000 mg PO BID RF: 0 magnesium citrate 400 mg 400 mg PO QPM RF: 0 ondansetron 4 mg tablet,disintegrating 4 mg PO Q8H PRN (Reason: nausea and vomiting) Qty: 10 RF: 0 divalproex 250 mg tablet,delayed release (DR/EC) RF: 0 Januvia 50 mg tablet 50 mg PO DAILY RF: 0 Referrals: Can Askew MD [Primary Care Provider] -
--- NOTE | 2018-10-16 18:35 | PC.NURSE ---
slip/fall 2 days ago c/o rt side anterior rib pain without soa/dyspnea worse when supine no resp distress lungs clear/equal no bruising/deformity or visible sign of injury abd soft/nontender
== END 2018-10-16 18:38 | disposition home or self-care (01) ==
PROVIDERS: Emergency Provider Emergency Medicine; Family Provider Internal Medicine; PCP Internal Medicine
DX: S20.211A Contusion of right front wall of thorax, initial encounter (principal); S70.01XA Contusion of right hip, initial encounter; W01.0XXA Fall on same level from slipping, tripping and stumbling without subsequent striking against object, initial encounter
CPT/HCPCS: 71101; 73502; 99282; 99283

== ENCOUNTER 2018-10-30 16:24 | Emergency (ER) | payer OTHER, MEDICAID, SELFPAY ==
[2018-10-30 16:32] VITALS: BP 134/77; PULSE 90; RESP 19; TEMP 36.6; O2SAT 98
[2018-10-30 17:00] VITALS: BP 132/76; PULSE 72; RESP 18; O2SAT 96
--- NOTE | 2018-10-30 17:39 | ED.GENADULT ---
HPI - General Adult <Chari Conn PA-C - Last Filed: 10/30/18 22:17> General Chief complaint: Weakness Stated complaint: dystonic reaction, given benedryl 50 iv by EMS Time Seen by Provider: 10/30/18 17:38 Source: patient and family Mode of arrival: ambulatory Limitations: no limitations History of Present Illness HPI narrative: This 27-year-old male is brought in by EMS due to acute dystonic reaction. He is on antipsychotic medications and has not had any recent changes, states he usually tolerates them fine unless he is sleep deprived or gets under significant stress as happened earlier today. He states that he had missed the bus and was waiting at a grocery store and got upset about some author comments on an audio books that he was listening to and between those things started to have increased shakes and tremors and felt unstable. He states this is very typical of his reactions. He keeps medication on hand for this which consists of 25 mg of Benadryl, 1 mg of benztropine and 1 mg of lorazepam. He states that he is supposed to wait 0.5 hr between doses to see if symptoms start to resolve but today he waited 15 min and then called EMS. They gave him IV Benadryl and he is feeling much much better. He states that his tremors are back to baseline and he feels like he can rest comfortably at home. His mom has arrived and agrees with above Related Data Home Medications Medication Instructions Recorded Confirmed sertraline 200 mg PO DAILY #0 01/06/11 10/30/18 divalproex [Depakote ER] 1,000 mg PO QPM #0 01/12/17 10/30/18 aripiprazole 10 mg PO DAILY 07/24/18 10/30/18 benztropine 1 mg PO BID 07/24/18 10/30/18 chromium picolinate 200 mcg PO BID 07/24/18 07/24/18 clonazepam 0.25 mg PO QAM 07/24/18 10/30/18 cyanocobalamin (vitamin B-12) 1,000 mcg PO DAILY 07/24/18 07/24/18 [Vitamin B-12] diphenhydramine HCl 50 mg PO PRN PRN 07/24/18 07/24/18 divalproex 250 mg PO QAM 07/24/18 10/30/18 fenofibrate 160 mg PO DAILY 07/24/18 10/30/18 lorazepam 1 mg PO PRN PRN 07/24/18 07/24/18 magnesium citrate 400 mg PO QPM 07/24/18 07/24/18 metformin 1,000 mg PO BID 07/24/18 10/30/18 omega 8-lpr-mpl-fish oil [Fish Oil] 2,000 mg PO BID 07/24/18 07/24/18 quetiapine 75 mg PO QPM 07/24/18 10/30/18 sitagliptin [Januvia] 50 mg PO DAILY 10/16/18 10/30/18 Previous Rx's Medication Instructions Recorded ondansetron 4 mg PO Q8H PRN #10 tab 07/24/18 ketorolac 10 mg PO Q6H PRN #14 tab 10/16/18 Allergies Allergy/AdvReac Type Severity Reaction Status Date / Time Penicillins [PENICILLINS] Allergy Severe rash Verified 07/31/18 12:27 Sulfa (Sulfonamide Allergy Severe bones itch Verified 07/31/18 12:27 Antibiotics) [SULFA (SULFONAMIDE ANTIBIOTICS)] ziprasidone [ZIPRASIDONE] AdvReac Severe locked Verified 07/31/18 12:27 muscles, hypotension Review of Systems <Chari Conn PA-C - Last Filed: 10/30/18 22:17> Review of Systems ROS Unobtainable: All systems reviewed & are unremarkable except as noted in HPI and below PFSH <Chari Conn PA-C - Last Filed: 10/30/18 22:17> Medical History ADHD (Chronic) Aspergers' syndrome (Chronic) Dystonia (Chronic) No pertinent family history (Chronic) OCD (obsessive compulsive disorder) (Chronic) Surgical History No pertinent past surgical history (Chronic) Social History household members: family Smoking Status: Never smoker Social History household members: family Smoking Status: Never smoker Exam <Chari Conn PA-C - Last Filed: 10/30/18 22:17> Narrative Exam Narrative: GENERAL APPEARANCE: Patient sitting comfortably, in no distress. HEENT: PERRL, EOMI, normal oropharynx LUNGS: Clear to auscultation bilaterally. HEART: Rate and rhythm regular without murmur, normal S1 and S2, no S3 or S4. NEUROLOGIC: Patient is alert with intelligible speech. Responses are a bit slow but appropriate. Fine upper extremity tremor noted Initial Vital Signs Initial Vital Signs: Vital Signs Temperature 97.9 F 10/30/18 16:32 Pulse Rate 90 10/30/18 16:32 Respiratory Rate 19 10/30/18 16:32 Blood Pressure 134/77 10/30/18 16:32 Pulse Oximetry 98 10/30/18 16:32 <Sonu Woodson MD - Last Filed: 10/31/18 04:40> Initial Vital Signs Initial Vital Signs: Vital Signs Temperature 97.9 F 10/30/18 16:32 Pulse Rate 90 10/30/18 16:32 Respiratory Rate 19 10/30/18 16:32 Blood Pressure 134/77 10/30/18 16:32 Pulse Oximetry 98 10/30/18 16:32 Course <Chari Conn PA-C - Last Filed: 10/30/18 22:17> Vital Signs - 8 hr 10/30/18 16:32 10/30/18 17:00 Temperature 97.9 F Pulse Rate 90 72 Respiratory Rate 19 18 Blood Pressure 134/77 Blood Pressure [Left Arm] 132/76 Pulse Oximetry 98 96 <Sonu Woodson MD - Last Filed: 10/31/18 04:40> Vital Signs - 8 hr 10/30/18 16:32 10/30/18 17:00 Temperature 97.9 F Pulse Rate 90 72 Respiratory Rate 19 18 Blood Pressure 134/77 Blood Pressure [Left Arm] 132/76 Pulse Oximetry 98 96 Discharge Plan Departure Patient Disposition: Home Clinical Impression: Dystonic drug reaction Discharge Date/Time: 10/30/18 17:56 Interventions: ED Discharge Assessment Last Done: 10/30/18 17:55 Instructions: Dystonia Movement Disorders Activity Restrictions/Additional Instructions: Please return if you have recurrent symptoms again and your medicines are not working. Since you are feeling better, you can return home this evening and relax. You can take additional Benadryl if you need to, or your other medicines as Dr. Bender has advised you. Prescriptions: No Action sertraline 100 MG tablet 200 mg PO DAILY Qty: 0 RF: 0 divalproex [Depakote ER] 500 MG tablet extended release 24 hr 1,000 mg PO QPM Qty: 0 RF: 0 quetiapine 25 mg tablet 75 mg PO QPM RF: 0 metformin 1,000 mg tablet 1,000 mg PO BID RF: 0 aripiprazole 10 mg tablet 10 mg PO DAILY RF: 0 fenofibrate 160 mg tablet 160 mg PO DAILY RF: 0 clonazepam 0.5 mg tablet 0.25 mg PO QAM RF: 0 cyanocobalamin (vitamin B-12) [Vitamin B-12] 1,000 mcg Tablet 1,000 mcg PO DAILY RF: 0 diphenhydramine HCl 25 mg Capsule 50 mg PO PRN PRN (Reason: dystonia/[place]) RF: 0 benztropine 1 mg tablet 1 mg PO BID RF: 0 chromium picolinate 200 mcg Tablet 200 mcg PO BID RF: 0 lorazepam 1 mg tablet 1 mg PO PRN PRN (Reason: dystonia/[place]) RF: 0 divalproex 250 mg tablet extended release 24 hr 250 mg PO QAM RF: 0 omega 9-chs-ead-fish oil [Fish Oil] 1,000 mg (120 mg-180 mg) Capsule 2,000 mg PO BID RF: 0 magnesium citrate 400 mg 400 mg PO QPM RF: 0 ondansetron 4 mg tablet,disintegrating 4 mg PO Q8H PRN (Reason: nausea and vomiting) Qty: 10 RF: 0 Januvia 50 mg tablet 50 mg PO DAILY RF: 0 ketorolac 10 mg tablet 10 mg PO Q6H PRN (Reason: pain) Qty: 14 RF: 0 Referrals: Can Askew MD [Primary Care Provider] - <Sonu Woodson MD - Last Filed: 10/31/18 04:40> Cosign ED Attending Cosignature Attestation: I was in the ER at the time of this patient's care. I was available for assistance if needed. I agree with the assessment and treatment plan.
== END 2018-10-30 17:56 | disposition home or self-care (01) ==
PROVIDERS: Emergency Provider Internal Medicine; Family Provider Internal Medicine; PCP Internal Medicine
DX: G24.02 Drug induced acute dystonia (principal)
CPT/HCPCS: 99283

== ENCOUNTER → 2019-06-20 12:20 | Outpatient (CLI) | payer OTHER, MEDICAID, SELFPAY ==
[2019-06-20 13:12] LABS: Add Manual Diff / Slide Review NO; Basophils Absolute Auto 0 /uL (0-100); Basophils Percent Auto 0.7 % (0-2); Eosinophils Absolute Auto 100 /uL (0-450); Eosinophils Percent Auto 2.1 % (2-4); Hematocrit 41.7 % (41-53); Hemoglobin 14.5 g/dL (13.5-17.5); Lymphocytes Absolute Auto 1700 /uL (1100-4500); Lymphocytes Percent Auto 40.9 % (25-40); Mean Corpuscular HGB Conc 34.8 % (30-36); Mean Corpuscular Hemoglobin 27.9 PG (26-34); Monocytes Absolute Auto 300 /uL (0-900); Monocytes Percent Auto 6.4 % (3-14); Neutrophils Absolute Auto 2100 /uL (1500-7000); Neutrophils Percent Auto 49.9 % (50-75); Platelet Count 160 X10^3/uL (150-400); Red Blood Cell Count 5.21 X10^6/uL (4.5-5.9); Red Cell Distribution Width 13.9 % (11.6-14.8); White Blood Cell Count 4.2 X10^3/uL (4.5-11.0)
[2019-06-20 13:54] LABS: Alanine Aminotransferase 38 IU/L (21-72); Albumin 5.1 g/dL (3.5-5.0); Albumin Globulin Ratio 2.4 (1.0-2.8); Alkaline Phosphatase 37 U/L (38-126); Aspartate Aminotransferase 34 IU/L (17-59); Bilirubin Total 0.6 mg/dL (0.2-1.3); Blood Urea Nitrogen 15 mg/dL (9-20); Calcium 9.8 mg/dL (8.4-10.2); Carbon Dioxide 27 mmol/L (22-32); Chloride 101 mmol/L (98-107); Cholesterol 126 mg/dL (140-199); Estimated Glomerular Filt Rate > 60.0 mL/min (>60); Globulin 2.1 g/dL (1.7-4.1); Glucose 156 mg/dL (70-100); HDL Cholesterol 23 mg/dL (40-60); HEMOLYSIS < 15 (0-50); LDL Cholesterol Calculated 45 mg/dL (<100); Potassium 4.2 mmol/L (3.4-5.1); Sodium 140 mmol/L (137-145); Total Protein 7.2 g/dL (6.3-8.2); Triglycerides 290 mg/dL (35-150)
[2019-06-23 15:36] LABS: Valproic Acid (Depakene) Total 53.9 mg/L (50.0-100.0)
== END ==
PROVIDERS: PCP Internal Medicine; Visit Provider Internal Medicine
DX: F32.9 Major depressive disorder, single episode, unspecified (principal)
CPT/HCPCS: 36415; 80053; 80061; 80164; 85025

== ENCOUNTER 2019-09-05 04:42 | Emergency (ER) | payer OTHER, MEDICAID, SELFPAY ==
[2019-09-05 04:56] VITALS: BP 144/89; PULSE 78; RESP 16; TEMP 36.6; O2SAT 98; BMI 29.7
--- NOTE | 2019-09-05 05:02 | DI.CT.S_ITS ---
PROCEDURE: CT ABDOMEN PELVIS W CON INDICATIONS: Right lower quadrant abdominal pain TECHNIQUE: After the administration of intravenous contrast, 5 mm thick sections acquired from the diaphragm to the symphysis. 5 mm coronal and sagittal reformats were acquired. For radiation dose reduction, the following was used: automated exposure control, adjustment of mA and/or kV according to patient size. COMPARISON: [facility], CT, CT ABDOMEN PELVIS W CON, 07/24/2018, 17:16. FINDINGS: Image quality: Excellent. ABDOMEN: Lung bases: Lung bases are clear. Heart size is normal. Small hiatal hernia. Solid organs: There is hepatic steatosis. Liver is normal in size and enhancement. Gallbladder is normal. Biliary system is non dilated. Pancreas enhances normally. Spleen is mildly enlarged. No adrenal nodules. There is a 3 mm stone in the right ureterovesical junction. There is mild right hydronephrosis and hydroureter. Kidneys demonstrate normal size and enhancement. Peritoneum and bowel: Normal appendix. Bowel loops demonstrate normal wall thickness and caliber. No free fluid or air. Nodes and vessels: No retroperitoneal or mesenteric adenopathy by size criteria. Aorta and inferior vena cava are normal in size. Miscellaneous: No ventral hernias. PELVIS: Genitourinary: Bladder wall thickness is normal. Miscellaneous: No inguinal hernias or adenopathy. Bones: No suspicious bony lesions. No vertebral body compression fractures. IMPRESSION: 1. A 3 mm obstructing stone at the right UVJ causing mild right hydronephrosis and hydroureter. 2. Normal appendix. 3. Hepatic steatosis. 4. Mild splenomegaly. No significant discrepancy with the shift production associate radiology preliminary report. Dictated by: Lizzette Sewell M.D. on 09/05/2019 at 7:26 Approved by: Lizzette Sewell M.D. on 09/05/2019 at 7:31
[2019-09-05] MEDS: HYDROMORPHONE 0.5 MG INJ IV (05:16)
[2019-09-05] MEDS: SODIUM CHLORIDE 0.9% 1,000 ML 1000 ML IV (05:17)
[2019-09-05] MEDS: ONDANSETRON 4 MG/2 ML INJ IV ×2 (05:17→06:04)
--- NOTE | 2019-09-05 05:17 | ED_ITS ---
HPI - Abdominal Pain General Chief Complaint: Abdominal Pain Stated Complaint: lower abdominal pain since 3 am Time Seen by Provider: 09/05/19 04:45 Source: patient Mode of arrival: Family Vehicle Limitations: no limitations History of Present Illness HPI narrative: 28-year-old male here for evaluation of right lower quadrant abdominal pain. Patient states that he was woken up approximately 2 hours ago with pain in his right lower quadrant. Has had diarrhea since then which did not changes pain. Has vomited multiple times and said which did not changes pain. No urinary symptoms. No prior abdominal surgeries. No fevers. Has been on an antibiotic for the past week for a respiratory infection. He does not know what antibiotic this was. Related Data Home Medications Medication Instructions Recorded Confirmed sertraline 200 mg PO DAILY #0 01/06/11 08/16/19 divalproex [Depakote ER] 1,000 mg PO QPM #0 01/12/17 08/16/19 aripiprazole 10 mg PO DAILY 07/24/18 08/16/19 benztropine 1 mg PO BID 07/24/18 08/16/19 cyanocobalamin (vitamin B-12) 1,000 mcg PO DAILY 07/24/18 08/16/19 [Vitamin B-12] diphenhydramine HCl 50 mg PO PRN PRN 07/24/18 08/16/19 divalproex 250 mg PO QAM 07/24/18 08/16/19 fenofibrate 160 mg PO DAILY 07/24/18 08/16/19 lorazepam 1 mg PO PRN PRN 07/24/18 08/16/19 magnesium citrate 400 mg PO QPM 07/24/18 07/24/18 metformin 1,000 mg PO BID 07/24/18 08/16/19 omega 0-kve-rju-fish oil [Fish Oil] 2,000 mg PO BID 07/24/18 08/16/19 quetiapine 75 mg PO QPM 07/24/18 08/16/19 sitagliptin [Januvia] 50 mg PO DAILY 10/16/18 08/16/19 Allergies Allergy/AdvReac Type Severity Reaction Status Date / Time Penicillins [PENICILLINS] Allergy Severe rash Verified 08/16/19 09:06 Sulfa (Sulfonamide Allergy Severe bones itch Verified 08/16/19 09:06 Antibiotics) [SULFA (SULFONAMIDE ANTIBIOTICS)] ziprasidone [ZIPRASIDONE] AdvReac Severe locked Verified 08/16/19 09:06 muscles, hypotension Review of Systems Constitutional Constitutional: Denies fever(s) Cardiovascular Cardiovascular: Denies chest pain and Denies dyspnea Respiratory Respiratory: Denies dyspnea Gastrointestinal Gastrointestinal: Reports abdominal pain, Reports diarrhea, Reports nausea and Reports vomiting Genitourinary Genitourinary: Denies dysuria Musculoskeletal Musculoskeletal: Denies myalgias and Denies arthralgias Integumentary/Breasts Skin/Breast: Denies rash Neurologic Neurologic: Denies behavioral changes Psychiatric Psychiatric: Denies behavioral changes Hematologic/Lymphatic Hematologic/Lymphatic: Denies easy bleeding and Denies easy bruising Patient History Medical History ADHD (Chronic) Aspergers' syndrome (Chronic) Dystonia (Chronic) No pertinent family history (Chronic) OCD (obsessive compulsive disorder) (Chronic) Surgical History (Updated 10/30/18 @ 18:12 by Chari Conn PA-C) No pertinent past surgical history (Chronic) Social History household members: family Smoking Status: Never smoker Smoking Status: Never smoker alcohol intake frequency: 0-2 drinks per day Substance Use Type: does not use Exam Initial Vital Signs Initial Vital Signs: Vital Signs Temperature 97.9 F 09/05/19 04:56 Pulse Rate 78 09/05/19 04:56 Respiratory Rate 16 09/05/19 04:56 Blood Pressure 144/89 H 09/05/19 04:56 Pulse Oximetry 98 09/05/19 04:56 Const General: cooperative and comfortable Limitations: mental status not altered HENOR Head: normal to inspection and normocephalic Resp Effort & Inspection: normal respiratory effort Auscultation: clear to auscultation bilaterally Cardio Rate: regular rate Rhythm: regular rhythm GI Inspection: non-distended Palpation: soft and tender (Right lower quadrant with rebounding guarding) Back/Spine/Pelvis Back: No CVA tenderness Skin Lesions: no lesions Rashes: no rashes Neuro General: alert and awake Cognition: normal cognition Speech: speech normal Extrem General: normal to inspection, capillary refill normal and No edema Psych Appearance: grossly normal and well kempt Course Orders Ordered: ED Orders 09/05/19 05:02 CT abdomen pelvis w con Stat 09/05/19 05:05 Complete Blood Count AUTO DIFF Stat Comprehensive Metabolic Panel Stat Lipase Stat 09/05/19 05:35 Urine Microscopic Stat Discontinued Medications Hydromorphone HCl (Dilaudid) 0.5 mg IV NOW ONE Stop: 09/05/19 05:03 Last Admin: 09/05/19 05:16 Dose: 0.5 mg Documented by: BETHANIE Sodium Chloride (Normal Saline 0.9%) 1,000 mls @ 1,000 mls/hr IV BOLUS ONE Stop: 09/05/19 06:01 Last Infusion: 09/05/19 06:22 Dose: 0 mls/hr Documented by: Admin: 09/05/19 05:17 Dose: 1,000 mls/hr Documented by: BETHANIE Lidocaine HCl 7.7 ml/ Sodium (Chloride) 57.7 mls @ 346.2 mls/hr IV NOW ONE Stop: 09/05/19 06:00 Last Infusion: 09/05/19 06:22 Dose: 0 mls/hr Documented by: Admin: 09/05/19 06:05 Dose: 346.2 mls/hr Documented by: BETHANIE Ketorolac Tromethamine (Toradol) 30 mg IV NOW ONE Stop: 09/05/19 06:32 Ondansetron HCl (Zofran) 4 mg IV NOW ONE Stop: 09/05/19 05:03 Last Admin: 09/05/19 05:17 Dose: 4 mg Documented by: BETHANIE Ondansetron HCl (Zofran) 4 mg IV NOW ONE Stop: 09/05/19 06:00 Last Admin: 09/05/19 06:04 Dose: 4 mg Documented by: BETHANIE Vital Signs Vital signs: Vital Signs - 8 hr 09/05/19 04:56 09/05/19 06:15 Temperature 97.9 F Pulse Rate 78 75 Respiratory Rate 16 13 Blood Pressure 144/89 H Blood Pressure [Left Arm] 141/81 H Pulse Oximetry 98 97 MDM - Abdominal Pain Lab Data Attestation: I reviewed the patient's lab results. Result diagrams: 09/05/19 05:05 09/05/19 05:05 Labs: Lab Results 09/05/19 09/05/19 09/05/19 Range/Units 05:05 05:05 05:35 WBC 7.1 (4.5-11.0) X10^3/uL RBC 4.93 (4.5-5.9) X10^6/uL Hgb 13.3 L (13.5-17.5) g/dL Hct 39.5 L (41-53) % MCV 80.1 (80-100) fL MCH 27.0 (26-34) PG MCHC 33.7 (30-36) % RDW 14.5 (11.6-14.8) % Plt Count 161 (150-400) X10^3/uL Neut % (Auto) 69.4 (50-75) % Lymph % (Auto) 23.1 L (25-40) % [place] % (Auto) 5.1 (3-14) % Eos % (Auto) 1.8 L (2-4) % Baso % (Auto) 0.6 (0-2) % Neut # (Auto) 4900 (8772-3459) /uL Lymph # (Auto) 1600 (8615-6657) /uL [place] # (Auto) 400 (0-900) /uL Eos # (Auto) 100 (0-450) /uL Baso # (Auto) 0 (0-100) /uL Sodium 140 (137-145) mmol/L Potassium 4.4 (3.4-5.1) mmol/L Chloride 104 (98-107) mmol/L Carbon Dioxide 23 (22-32) mmol/L BUN 14 (9-20) mg/dL Creatinine 0.70 (0.66-1.25) mg/dL Estimated GFR > 60.0 (>60) mL/min BUN/Creatinine Ratio 20.0 (6-22) Glucose 174 H (70-100) mg/dL Calcium 10.3 H (8.4-10.2) mg/dL Total Bilirubin 0.5 (0.2-1.3) mg/dL AST 41 (17-59) IU/L ALT 36 (<50) IU/L Alkaline Phosphatase 34 L (38-126) U/L Total Protein 7.4 (6.3-8.2) g/dL Albumin 4.9 (3.5-5.0) g/dL Globulin 2.5 (1.7-4.1) g/dL Albumin/Globulin Ratio 2.0 (1.0-2.8) Lipase 135 (23-300) U/L Urine RBC 1-5/hpf (0-5/HPF) Urine WBC None seen (0-5/HPF) Calcium Oxalate Crystal Moderate H Uric Acid Crystals Few Urine Bacteria None seen (None) Hyaline Casts 0-1/lpf (None) Ur Culture Indicated? Cult not indicated Point of care testing: Urine Dip Bedside Urine Glucose Negative Bedside Urine Bilirubin - Negative Bedside Urine Ketone - Negative Urine Specific [place] 1.005 Bedside Urine Occult Blood +++ Bedside Urine pH 6.5 Bedside Urine Protein +/- 15 Bedside Urine Urobilinogen - Negative Bedside Urine Nitrite - Negative Bedside Urine Leukocytes - Negative Esterase Imaging Data CT scan - abdomen/pelvis: Radiologist's Impression: Moderate right hydronephrosis secondary to small vesicular Renal junction stone. Stable splenomegaly MDM Narrative Medical decision making narrative: Creatinine unremarkable, urinalysis shows no signs of infection. CT scan does show right-sided ureteral stone. I do suspect this is the cause of his symptoms. After medications here in the emergency department patient did not feel much improvement. Just prior to administration of Toradol patient states that his pain improved. I do suspect that the stone has progressed to the bladder. Will send home with symptom treatment. He was given return precautions and follow-up instructions. He expressed understanding and agreement with plan. Discharge Plan Departure Patient Disposition: Home Clinical Impression: Right ureteral stone Instructions: Kidney Stones -- Adult Activity Restrictions/Additional Instructions: Increase your fluid intake. Take the medications as needed as directed. Return to the emergency department for any new symptoms to include fevers, inability to tolerate oral intake, pain that is not controlled, inability to urinate, or any other concerning symptoms Prescriptions: No Action sertraline 100 MG tablet 200 mg PO DAILY Qty: 0 RF: 0 divalproex [Depakote ER] 500 MG tablet extended release 24 hr 1,000 mg PO QPM Qty: 0 RF: 0 quetiapine 25 mg tablet 75 mg PO QPM RF: 0 metformin 1,000 mg tablet 1,000 mg PO BID RF: 0 aripiprazole 10 mg tablet 10 mg PO DAILY RF: 0 fenofibrate 160 mg tablet 160 mg PO DAILY RF: 0 cyanocobalamin (vitamin B-12) [Vitamin B-12] 1,000 mcg Tablet 1,000 mcg PO DAILY RF: 0 diphenhydramine HCl 25 mg Capsule 50 mg PO PRN PRN (Reason: dystonia/catonia) RF: 0 benztropine 1 mg tablet 1 mg PO BID RF: 0 lorazepam 1 mg tablet 1 mg PO PRN PRN (Reason: dystonia/catonia) RF: 0 divalproex 250 mg tablet extended release 24 hr 250 mg PO QAM RF: 0 omega 1-tjg-arq-fish oil [Fish Oil] 1,000 mg (120 mg-180 mg) Capsule 2,000 mg PO BID RF: 0 magnesium citrate 400 mg 400 mg PO QPM RF: 0 Januvia 50 mg tablet 50 mg PO DAILY RF: 0 Referrals: Can Askew MD [Primary Care Provider] -
[2019-09-05 05:21] LABS: Add Manual Diff / Slide Review NO; Basophils Absolute Auto 0 /uL (0-100); Basophils Percent Auto 0.6 % (0-2); Eosinophils Absolute Auto 100 /uL (0-450); Eosinophils Percent Auto 1.8 % (2-4); Hematocrit 39.5 % (41-53); Hemoglobin 13.3 g/dL (13.5-17.5); Lymphocytes Absolute Auto 1600 /uL (1100-4500); Lymphocytes Percent Auto 23.1 % (25-40); Mean Corpuscular HGB Conc 33.7 % (30-36); Mean Corpuscular Volume 80.1 fL (80-100); Monocytes Absolute Auto 400 /uL (0-900); Monocytes Percent Auto 5.1 % (3-14); Neutrophils Absolute Auto 4900 /uL (1500-7000); Neutrophils Percent Auto 69.4 % (50-75); Platelet Count 161 X10^3/uL (150-400); Red Blood Cell Count 4.93 X10^6/uL (4.5-5.9); Red Cell Distribution Width 14.5 % (11.6-14.8); White Blood Cell Count 7.1 X10^3/uL (4.5-11.0)
[2019-09-05 05:27] LABS: Alanine Aminotransferase 36 IU/L (<50); Albumin 4.9 g/dL (3.5-5.0); Alkaline Phosphatase 34 U/L (38-126); Aspartate Aminotransferase 41 IU/L (17-59); Bilirubin Total 0.5 mg/dL (0.2-1.3); Blood Urea Nitrogen 14 mg/dL (9-20); Calcium 10.3 mg/dL (8.4-10.2); Carbon Dioxide 23 mmol/L (22-32); Chloride 104 mmol/L (98-107); Estimated Glomerular Filt Rate > 60.0 mL/min (>60); Globulin 2.5 g/dL (1.7-4.1); Glucose 174 mg/dL (70-100); HEMOLYSIS < 15 (0-50); Lipase 135 U/L (23-300); Potassium 4.4 mmol/L (3.4-5.1); Sodium 140 mmol/L (137-145); Total Protein 7.4 g/dL (6.3-8.2)
[2019-09-05 05:58] LABS: Bacteria Urine None Seen; WBC Urine None Seen (0-5/HPF)
[2019-09-05] MEDS: LIDOCAINE 2% IV (06:05)
[2019-09-05] MEDS: SODIUM CHLORIDE 0.9% IV (06:05)
[2019-09-05 06:07] LABS: Calcium Oxalate Crystals Urine Moderate; Culture Indicated Urine Cult Not Indicated; Hyaline Casts Urine 0-1/LPF; RBC Urine 1-5/HPF (0-5/HPF); Uric Acid Crystals Urine Few
[2019-09-05 06:15] VITALS: BP 141/81; PULSE 75; RESP 13; O2SAT 97
[2019-09-05] MEDS: HYDROCODONE/ACET 5/325 PREPACK 1 BOTTLE MISC (07:09)
[2019-09-05] MEDS: ONDANSETRON 4 MG ODT PREPACK 1 BOTTLE MISC (07:09)
== END 2019-09-05 07:11 | disposition home or self-care (01) ==
PROVIDERS: Emergency Provider Emergency Medicine; PCP Internal Medicine
DX: N20.1 Calculus of ureter (principal); R11.2 Nausea with vomiting, unspecified
CPT/HCPCS: 36415; 74177; 80053; 81003; 81015; 83690; 85025; 96361; 96365; 96375; 96376; 99284; 99285; J1170; J1885; J2405; Q9967

== ENCOUNTER 2020-02-21 12:57 | Emergency (ER) | payer OTHER, MEDICAID, SELFPAY ==
[2020-02-21 13:00] VITALS: BP 141/75; PULSE 75; RESP 21; TEMP 37.1; O2SAT 96
--- NOTE | 2020-02-21 13:16 | ED.NEUROSD ---
HPI - Neuro Symptoms/Deficit General Chief Complaint: Neuro Symptoms/Deficit Stated Complaint: disorientation, headache, bruise left side Time Seen by Provider: 02/21/20 13:16 Source: patient and family Mode of arrival: Wheelchair Limitations: altered mental status History of Present Illness HPI Narrative: 29-year-old gentleman with a history of Asperger's, dystonia, obsessive-compulsive disorder and are fall 5 days ago landing on 3 stairs with some bruising to the left shoulder lower ribs in flank. He states that he woke this morning noting that his bruises were hurting a bit more and became somewhat anxious over this. Apparently when he gets a bit more anxious he frequently will take Ativan to help and if this does not help or he does not take it he will then have much more dystonia and worsening anxiety and nausea. I that did happen today and was also associated with a headache that did not respond to ibuprofen. He states that he was having more cognitive difficulty and felt that his brain was ?all foggy? period increasing gait instability associated with his dystonia worsening and headache that was troublesome but similar to prior and not the worst she has ever experienced. Related Data Home Medications Medication Instructions Recorded Confirmed sertraline 200 mg PO DAILY #0 01/06/11 08/16/19 divalproex [Depakote ER] 1,000 mg PO QPM #0 01/12/17 08/16/19 aripiprazole 10 mg PO DAILY 07/24/18 08/16/19 benztropine 1 mg PO BID 07/24/18 08/16/19 cyanocobalamin (vitamin B-12) 1,000 mcg PO DAILY 07/24/18 08/16/19 [Vitamin B-12] diphenhydramine HCl 50 mg PO PRN PRN 07/24/18 08/16/19 divalproex 250 mg PO QAM 07/24/18 08/16/19 fenofibrate 160 mg PO DAILY 07/24/18 08/16/19 lorazepam 1 mg PO PRN PRN 07/24/18 08/16/19 magnesium citrate 400 mg PO QPM 07/24/18 07/24/18 metformin 1,000 mg PO BID 07/24/18 08/16/19 omega 6-lrt-vdo-fish oil [Fish Oil] 2,000 mg PO BID 07/24/18 08/16/19 quetiapine 75 mg PO QPM 07/24/18 08/16/19 sitagliptin [Januvia] 50 mg PO DAILY 10/16/18 08/16/19 Allergies Allergy/AdvReac Type Severity Reaction Status Date / Time Penicillins [PENICILLINS] Allergy Severe rash Verified 02/21/20 13:05 Sulfa (Sulfonamide Allergy Severe bones itch Verified 02/21/20 13:05 Antibiotics) [SULFA (SULFONAMIDE ANTIBIOTICS)] ziprasidone [ZIPRASIDONE] AdvReac Severe locked Verified 02/21/20 13:05 muscles, hypotension Review of Systems Review of Systems Narrative: Pertinent positive and negative findings as per HPI Remainder of review of systems is otherwise unremarkable for Constitutional: Fevers, chills, weakness ENT: No sore throat, neck pain, ear pain CV: Chest pain, palpitations, dyspnea on exertion Respiratory: Cough, wheeze, dyspnea : Dysuria, hematuria, Patient History Medical History ADHD (Chronic) Aspergers' syndrome (Chronic) Dystonia (Chronic) No pertinent family history (Chronic) OCD (obsessive compulsive disorder) (Chronic) Surgical History No pertinent past surgical history (Chronic) Social History household members: family Smoking Status: Never smoker Smoking Status: Never smoker alcohol intake frequency: holidays/special occasions only Substance Use Type: does not use Exam Narrative Exam Narrative: General: Healthy appearing, dry heaves, significant stutter, significant dystonic reaction and difficulty with communicating his full history HEENT: Moist mucous membranes, normal sclera with reactive pupils, Neck: supple Respiratory: Lungs are clear to auscultation, no wheezing no rales no rhonchi. Full and symmetrical air movement Cardiac: Regular rate and rhythm no murmurs no bruits Abdomen: Soft nontender good bowel tones, no flank pain Skin: Warm and dry, no rashes, healing bruises symmetrically placed left posterior shoulder lower ribs and left upper hip consistent with falling and landing on 3 stairs. No abrasions and bruises are now healed to the point that they are light yellow Neurologic: Significant increased overall muscle tonus without focal neurologic findings Extremities: No trauma, well perfused Psych: Cooperative, Initial Vital Signs Initial Vital Signs: Vital Signs Temperature 98.8 F 02/21/20 13:00 Pulse Rate 75 02/21/20 13:00 Respiratory Rate 21 02/21/20 13:00 Blood Pressure 141/75 H 02/21/20 13:00 Pulse Oximetry 96 02/21/20 13:00 Course Orders Ordered: Discontinued Medications Diphenhydramine HCl (Benadryl) 25 mg IV NOW ONE Stop: 02/21/20 13:39 Last Admin: 02/21/20 14:11 Dose: Not Given Documented by: CHRISTIANNE Sodium Chloride (Normal Saline 0.9%) 1,000 mls @ 1,000 mls/hr IV BOLUS ONE Stop: 02/21/20 14:37 Last Admin: 02/21/20 13:49 Dose: 1,000 mls/hr Documented by: ESTEFANI Ketorolac Tromethamine (Toradol) 15 mg IV NOW ONE Stop: 02/21/20 13:39 Last Admin: 02/21/20 13:49 Dose: 15 mg Documented by: ESTEFANI Lorazepam (Ativan) 0.5 mg IV NOW ONE Stop: 02/21/20 13:18 Last Admin: 02/21/20 13:23 Dose: 0.5 mg Documented by: CHRISTIANNE Vital Signs Vital signs: Vital Signs - 8 hr 02/21/20 13:00 02/21/20 14:00 Temperature 98.8 F Pulse Rate 75 72 Respiratory Rate 21 16 Blood Pressure 141/75 H Blood Pressure [Right Arm] 104/72 Pulse Oximetry 96 96 [facility] - Neuro Symptoms/Deficit Medical Records Attestation: I reviewed the patient's medical records. [facility] Narrative Medical decision making narrative: 29-year-old gentleman presents with headache increased dystonia, dry heaves and increased anxiety. He is accompanied by his father. They note that he did not take all of his medications this morning he was a bit more agitated due to the pain from the fall approximately 4 days ago in the bruising to the ribs and back. The medications he did take he usually takes with a very strict regimen of fruit and nuts and today did not have the fruit which seem to upset him a bit more. The volume of pills on a basically empty stomach may have contributed to the nausea which contributes to the anxiety which 9 contributes to the headache and the dystonia. In the emergency room he is given a L of fluid, 0.5 mg of IV Ativan and IV Toradol. He is feeling better. He notes for his dystonic reactions Benadryl typically helps. We did offer this however he felt that he was improving nicely prior to needing to administer. On reassessment his overall muscle tone is back to normal with no evidence of obvious dystonia. His speech is much more fluid without the stutter, the ?cloudy? thinking of which she had complained has completely resolved and the headache is gone. At this point he is safe for home discharge. Discharge Plan Departure Patient Disposition: Home Clinical Impression: Dystonia, Musculoskeletal back pain Vomiting Qualifiers: Vomiting type: unspecified Vomiting Intractability: non-intractable Nausea presence: with nausea Qualified Code(s): R11.2 - Nausea with vomiting, unspecified Headache Qualifiers: Headache type: unspecified Headache chronicity pattern: acute headache Intractability: not intractable Qualified Code(s): R51 - Headache Instructions: DI for Vomiting -- Adult Activity Restrictions/Additional Instructions: Thank you for coming in today It sounds like today started off poorly and just simply did not get better. The bruises over your back from falling on the stairs a couple of days ago do seem to be improving nicely. Using 400 mg of ibuprofen (2 wicv-tbq-iltewcr pills) and 1 Tylenol every 6 hours can be very helpful in controlling pain. Sounds like you have an appropriate regimen of medications available to you at home to help with the dystonic reactions and anxiety. I would encourage you to continue to use those as prescribed In the emergency room today, your given IV Ativan, a L of normal saline and some Toradol to help with the pain and headache. Your symptoms had improved enough that you declined any additional Benadryl. I am glad your feeling better. At this point I do not see any signs of life-threatening issues and I believe it is safe you to go home. If you have new or changing symptoms or would like to be further evaluated please feel free to return to the emergency department as needed. Prescriptions: No Action sertraline 100 MG tablet 200 mg PO DAILY Qty: 0 RF: 0 divalproex [Depakote ER] 500 MG tablet extended release 24 hr 1,000 mg PO QPM Qty: 0 RF: 0 quetiapine 25 mg tablet 75 mg PO QPM RF: 0 metformin 1,000 mg tablet 1,000 mg PO BID RF: 0 aripiprazole 10 mg tablet 10 mg PO DAILY RF: 0 fenofibrate 160 mg tablet 160 mg PO DAILY RF: 0 cyanocobalamin (vitamin B-12) [Vitamin B-12] 1,000 mcg Tablet 1,000 mcg PO DAILY RF: 0 diphenhydramine HCl 25 mg Capsule 50 mg PO PRN PRN (Reason: dystonia/catonia) RF: 0 benztropine 1 mg tablet 1 mg PO BID RF: 0 lorazepam 1 mg tablet 1 mg PO PRN PRN (Reason: dystonia/catonia) RF: 0 divalproex 250 mg tablet extended release 24 hr 250 mg PO QAM RF: 0 omega 4-pym-tih-fish oil [Fish Oil] 1,000 mg (120 mg-180 mg) Capsule 2,000 mg PO BID RF: 0 magnesium citrate 400 mg 400 mg PO QPM RF: 0 Januvia 50 mg tablet 50 mg PO DAILY RF: 0 Referrals: Can Askew MD [Primary Care Provider] -
[2020-02-21] MEDS: ONDANSETRON 4 MG/2 ML INJ (13:22)
[2020-02-21] MEDS: LORazepam 2 MG/ML INJ 0.5 MG IV (13:23)
[2020-02-21] MEDS: diphenhydrAMINE 50 MG/ML VIAL 25 MG IV (13:48)
[2020-02-21] MEDS: KETOROLAC 60 MG/2 ML VIAL 15 MG IV (13:49)
[2020-02-21] MEDS: SODIUM CHLORIDE 0.9% 1,000 ML 1000 ML IV (13:49)
[2020-02-21 14:00] VITALS: BP 104/72; PULSE 72; RESP 16; O2SAT 96
[2020-02-21 14:30] VITALS: BP 102/62; PULSE 66; RESP 19; O2SAT 98
[2020-02-21 15:02] VITALS: BP 108/67; PULSE 65; RESP 24; TEMP 36.5; O2SAT 100
--- NOTE | 2020-03-07 21:10 | PC.NURSE ---
1000ml NS infused 02/21/20 at 1440.
== END 2020-02-21 15:02 | disposition home or self-care (01) ==
PROVIDERS: Emergency Provider Emergency Medicine; PCP Internal Medicine
DX: G24.9 Dystonia, unspecified (principal); M54.9 Dorsalgia, unspecified; R11.2 Nausea with vomiting, unspecified; R51 Headache; F41.9 Anxiety disorder, unspecified
CPT/HCPCS: 96361; 96374; 96375; 99282; 99284; J1200; J1885; J2060; J2405

== ENCOUNTER → 2020-05-21 11:35 | Outpatient (CLI) | payer OTHER, MEDICAID, SELFPAY ==
[2020-05-21 12:24] LABS: Hemoglobin A1C% w Est Avg Glu 7.5 % (4.0-6.0)
[2020-05-21 12:30] LABS: Alanine Aminotransferase 33 IU/L (<50); Albumin 5.1 g/dL (3.5-5.0); Albumin Globulin Ratio 1.9 (1.0-2.8); Alkaline Phosphatase 46 U/L (38-126); Aspartate Aminotransferase 31 IU/L (17-59); BUN Creatinine Ratio 26.4 (6-22); Bilirubin Total 0.6 mg/dL (0.2-1.3); Blood Urea Nitrogen 19 mg/dL (9-20); Calcium 10.2 mg/dL (8.4-10.2); Carbon Dioxide 23 mmol/L (22-32); Chloride 101 mmol/L (98-107); Cholesterol 133 mg/dL (140-199); Estimated Glomerular Filt Rate > 60.0 mL/min (>60); Globulin 2.7 g/dL (1.7-4.1); Glucose 187 mg/dL (70-100); HDL Cholesterol 22 mg/dL (40-60); HEMOLYSIS < 15 (0-50); LDL Cholesterol Calculated 47 mg/dL (<100); Potassium 4.5 mmol/L (3.4-5.1); Sodium 140 mmol/L (137-145); Total Protein 7.8 g/dL (6.3-8.2); Triglycerides 318 mg/dL (35-150)
[2020-05-21 13:56] LABS: TSH w/ Reflex to FT4 0.75 uIU/mL (0.47-4.68)
== END ==
PROVIDERS: PCP Family Medicine; Referring Provider Family Medicine; Visit Provider Family Medicine
DX: E11.9 Type 2 diabetes mellitus without complications (principal); E78.1 Pure hyperglyceridemia; Z13.29 Encounter for screening for other suspected endocrine disorder
CPT/HCPCS: 36415; 80053; 80061; 83036; 84443

== ENCOUNTER 2020-05-27 18:41 | Emergency (ER) | payer OTHER, MEDICAID, SELFPAY ==
[2020-05-27 18:42] VITALS: BP 130/89; PULSE 94; RESP 16; TEMP 36.8; O2SAT 95; BMI 31.4
[2020-05-27 18:57] LABS: Add Manual Diff / Slide Review NO; Basophils Absolute Auto 0 /uL (0-100); Basophils Percent Auto 0.9 % (0-2); Eosinophils Absolute Auto 100 /uL (0-450); Eosinophils Percent Auto 2.9 % (2-4); Hematocrit 44.8 % (41-53); Hemoglobin 15.4 g/dL (13.5-17.5); Lymphocytes Absolute Auto 1800 /uL (1100-4500); Lymphocytes Percent Auto 40.4 % (25-40); Mean Corpuscular HGB Conc 34.3 % (30-36); Mean Corpuscular Hemoglobin 27.4 PG (26-34); Mean Corpuscular Volume 79.8 fL (80-100); Monocytes Absolute Auto 300 /uL (0-900); Neutrophils Absolute Auto 2100 /uL (1500-7000); Neutrophils Percent Auto 47.8 % (50-75); Platelet Count 179 X10^3/uL (150-400); Red Blood Cell Count 5.62 X10^6/uL (4.5-5.9); Red Cell Distribution Width 13.6 % (11.6-14.8); White Blood Cell Count 4.4 X10^3/uL (4.5-11.0)
[2020-05-27] MEDS: diphenhydrAMINE 50 MG/ML VIAL IV (19:00)
[2020-05-27] MEDS: SODIUM CHLORIDE 0.9% 1,000 ML 1000 ML IV (19:00)
[2020-05-27] MEDS: BENZTROPINE 2 MG/2 ML AMPUL 1 MG IV (19:01)
[2020-05-27 19:09] LABS: Alanine Aminotransferase 32 IU/L (<50); Albumin 5.3 g/dL (3.5-5.0); Albumin Globulin Ratio 1.8 (1.0-2.8); Alkaline Phosphatase 51 U/L (38-126); Aspartate Aminotransferase 37 IU/L (17-59); BUN Creatinine Ratio 24.6 (6-22); Bilirubin Total 0.5 mg/dL (0.2-1.3); Blood Urea Nitrogen 17 mg/dL (9-20); Calcium 10.1 mg/dL (8.4-10.2); Carbon Dioxide 23 mmol/L (22-32); Chloride 102 mmol/L (98-107); Estimated Glomerular Filt Rate > 60.0 mL/min (>60); Glucose 315 mg/dL (70-100); HEMOLYSIS 45 (0-50); Potassium 4.4 mmol/L (3.4-5.1); Sodium 139 mmol/L (137-145); Total Protein 8.3 g/dL (6.3-8.2)
[2020-05-27 19:47] VITALS: BP 137/77; PULSE 96; O2SAT 97
--- NOTE | 2020-05-28 01:48 | ED.ALLEREA ---
HPI - Allergic Reaction General Chief complaint: Allergic Reaction Stated complaint: Muscle Contractions Time Seen by Provider: 05/27/20 18:42 Source: EMS Mode of arrival: EMS Limitations: no limitations History of Present Illness HPI narrative: 29M nonsmoker with mental health history presents by EMS for an apparent recurrence of a dystonic reaction, of which he has had many. He took benadryl, cogentin, and ativan at home but still is having dystonic movements. He is otherwise well and free of complaint. MD complaint: other Onset (ago): hour(s) Exposure: medication Symptoms: other Severity: moderate Treatment prior to arrival: benadryl and other Previous Allergic Reaction History: none Related Data Home Medications Medication Instructions Recorded Confirmed benztropine 1 mg PO BID 07/24/18 05/25/20 cyanocobalamin (vitamin B-12) 1,000 mcg PO DAILY 07/24/18 05/25/20 [Vitamin B-12] diphenhydramine HCl 50 mg PO PRN PRN 07/24/18 05/25/20 lorazepam 1 mg PO PRN PRN 07/24/18 05/25/20 magnesium citrate 400 mg PO QPM 07/24/18 05/25/20 metformin 1,000 mg PO BID 07/24/18 05/25/20 omega [id number] oil [Fish Oil] 2,000 mg PO BID 07/24/18 05/25/20 quetiapine 75 mg PO QPM 07/24/18 05/25/20 blood sugar diagnostic #10 each 05/07/20 05/25/20 lancets 33 gauge #100 each 05/07/20 05/25/20 Previous Rx's Medication Instructions Recorded aripiprazole 2 mg tablet 2 mg PO DAILY #90 tab 05/25/20 aripiprazole 5 mg tablet 5 mg PO DAILY #90 tab 05/25/20 divalproex 500 mg tablet,extended 1,500 mg PO DAILY #270 tab 05/25/20 release 24 hr fenofibrate 160 mg tablet 160 mg PO DAILY #90 tab 05/25/20 glipizide 2.5 mg tablet, extended 2.5 mg PO DAILY #30 tab 05/25/20 release 24 hr sertraline 100 mg tablet 200 mg PO DAILY #90 tab 05/25/20 sitagliptin 50 mg tablet 50 mg PO DAILY #90 tab 05/25/20 Allergies Allergy/AdvReac Type Severity Reaction Status Date / Time Penicillins [PENICILLINS] Allergy Severe rash Verified 05/07/20 13:13 Sulfa (Sulfonamide Allergy Severe bones itch Verified 05/07/20 13:13 Antibiotics) [SULFA (SULFONAMIDE ANTIBIOTICS)] ziprasidone [ZIPRASIDONE] AdvReac Severe locked Verified 05/07/20 13:13 muscles, hypotension Review of Systems Constitutional Constitutional: Denies chills, Denies fatigue, Denies fever(s), Denies frequent falls, Denies lethargy and Denies weakness Eyes Eyes: Denies change in vision, Denies eye discharge, Denies irritation and Denies loss of vision ENT Ears, Nose, Mouth, and Throat: Denies change in voice, Denies dizziness, Denies neck pain, Denies sore throat and Denies throat swelling Cardiovascular Cardiovascular: Denies chest pain, Denies irregular heart rhythm, Denies lightheadedness, Denies palpitations, Denies dyspnea, Denies dyspnea on exertion and Denies orthopnea Respiratory Respiratory: Denies cough, Denies dyspnea, Denies dyspnea on exertion and Denies wheezing Gastrointestinal Gastrointestinal: Denies abdominal pain, Denies change in bowel habits, Denies diarrhea, Denies nausea and Denies vomiting Musculoskeletal Musculoskeletal: Denies neck pain and Denies numbness Integumentary/Breasts Skin/Breast: Denies pruritus, Denies erythema, Denies rash and Denies wounds Neurologic Neurologic: Denies behavioral changes, Denies confusion, Denies dizziness, Denies frequent falls, Denies loss of vision, Denies numbness, Reports convulsions and Denies weakness Psychiatric Psychiatric: Denies anxiety, Denies behavioral changes, Denies confusion, Denies depression, Denies homicidal ideation and Denies suicidal ideation Endocrine Endocrine: Denies fatigue, Denies flushing and Denies palpitations Hematologic/Lymphatic Hematologic/Lymphatic: Denies easy bruising Allergic/Immunologic Allergic/Immunologic: Denies urticaria, Denies throat swelling and Denies wheezing Patient History Medical History ADHD (Chronic) Aspergers' syndrome (Chronic) Dystonia (Chronic) Hypertriglyceridemia (Acute) No pertinent family history (Chronic) OCD (obsessive compulsive disorder) (Chronic) Schizoaffective disorder, bipolar type (Acute) Type 2 diabetes mellitus (Acute) Surgical History No pertinent past surgical history (Chronic) Social History household members: family Smoking Status: Never smoker alcohol intake: never substance use type: does not use Smoking Status: Never smoker alcohol intake frequency: holidays/special occasions only Substance Use Type: does not use Exam Narrative Exam Narrative: GENERAL: [29] year old patient appears stated age. Well-nourished, well-developed patient, in mild distress. HEAD: Atraumatic. Normocephalic. EYES: Pupils equal round and reactive. Extraocular motions intact. No scleral icterus. No injection or drainage. ENT: Nose without bleeding, purulent drainage. Throat without erythema, tonsillar hypertrophy or exudate. Airway patent. NECK: Trachea midline. Non tender CARDIOVASCULAR: Regular rate and rhythm without murmurs, gallops, or rubs. RESPIRATORY: Clear to auscultation. Breath sounds equal bilaterally. No wheezes, rales, or rhonchi. GASTROINTESTINAL: Abdomen soft, non-tender, nondistended. EXTREMITIES: No edema or joint tenderness. BACK: Nontender without deformity or crepitance. No flank tenderness. NEURO: AOx3. Full body dystonic movements SKIN: No rash or erythema of visible areas Initial Vital Signs Initial Vital Signs: Vital Signs Temperature 98.3 F 05/27/20 18:42 Pulse Rate 94 H 05/27/20 18:42 Respiratory Rate 16 05/27/20 18:42 Blood Pressure 130/89 05/27/20 18:42 Pulse Oximetry 95 05/27/20 18:42 Course Course Course Narrative: tremendous improvement after above stated therapies. No more dystonic movements. Questions answered to his apparent satisfaction. Return precautions given. Orders Ordered: ED Orders 05/27/20 18:25 Complete Blood Count AUTO DIFF Stat Comprehensive Metabolic Panel Stat Discontinued Medications Benztropine Mesylate (Cogentin) 1 mg IV NOW ONE Stop: 05/27/20 18:47 Last Admin: 05/27/20 19:01 Dose: 1 mg Documented by: JUAN Diphenhydramine HCl (Benadryl) 50 mg IV NOW ONE Stop: 05/27/20 18:45 Last Admin: 05/27/20 19:00 Dose: 50 mg Documented by: JUAN Sodium Chloride (Normal Saline 0.9%) 1,000 mls @ 1,000 mls/hr IV BOLUS ONE Stop: 05/27/20 19:43 Last Infusion: 05/27/20 19:44 Dose: 0 mls/hr Documented by: Admin: 05/27/20 19:00 Dose: 1,000 mls/hr Documented by: JUAN Vital Signs Vital signs: Vital Signs - 8 hr 05/27/20 18:42 05/27/20 19:47 Temperature 98.3 F Pulse Rate 94 H 96 H Respiratory Rate 16 Blood Pressure 130/89 137/77 Pulse Oximetry 95 97 MDM - Allergic Reaction Lab Data Result diagrams: 05/27/20 18:25 05/27/20 18:25 Labs: Lab Results 05/27/20 05/27/20 Range/Units 18:25 18:25 WBC 4.4 L (4.5-11.0) X10^3/uL RBC 5.62 (4.5-5.9) X10^6/uL Hgb 15.4 (13.5-17.5) g/dL Hct 44.8 (41-53) % MCV 79.8 L (80-100) fL MCH 27.4 (26-34) PG MCHC 34.3 (30-36) % RDW 13.6 (11.6-14.8) % Plt Count 179 (150-400) X10^3/uL Neut % (Auto) 47.8 L (50-75) % Lymph % (Auto) 40.4 H (25-40) % [place] % (Auto) 8.0 (3-14) % Eos % (Auto) 2.9 (2-4) % Baso % (Auto) 0.9 (0-2) % Neut # (Auto) 2100 (8900-2289) /uL Lymph # (Auto) 1800 (7427-3689) /uL [place] # (Auto) 300 (0-900) /uL Eos # (Auto) 100 (0-450) /uL Baso # (Auto) 0 (0-100) /uL Sodium 139 (137-145) mmol/L Potassium 4.4 (3.4-5.1) mmol/L Chloride 102 (98-107) mmol/L Carbon Dioxide 23 (22-32) mmol/L BUN 17 (9-20) mg/dL Creatinine 0.69 (0.66-1.25) mg/dL Estimated GFR > 60.0 (>60) mL/min BUN/Creatinine Ratio 24.6 H (6-22) Glucose 315 H D (70-100) mg/dL Calcium 10.1 (8.4-10.2) mg/dL Total Bilirubin 0.5 (0.2-1.3) mg/dL AST 37 (17-59) IU/L ALT 32 (<50) IU/L Alkaline Phosphatase 51 (38-126) U/L Total Protein 8.3 H (6.3-8.2) g/dL Albumin 5.3 H (3.5-5.0) g/dL Globulin 3.0 (1.7-4.1) g/dL Albumin/Globulin Ratio 1.8 (1.0-2.8) Discharge Plan Departure Patient Disposition: Home Clinical Impression: Dystonic drug reaction Discharge Date/Time: 05/27/20 20:39 Instructions: Dystonia Movement Disorders Activity Restrictions/Additional Instructions: *You have been diagnosed with [dystonic reaction secondary to chronic medications] *What to do: *Take medications as directed *Follow up with your primary care provider in 2-3 days, call for an appointment. Let them know you were seen in the Emergency Department and that we ask that you be seen in follow up *Return to ER if you should have any new, worsening or concerning symptoms Prescriptions: No Action (DME) blood sugar diagnostic Strip See Rx Instructions strip .ROUTE .MEDSUPPLY Qty: 10 RF: 0 (DME) lancets [BD Ultra Fine Lancets] 33 gauge misc See Rx Instructions .ROUTE .MEDSUPPLY Qty: 100 RF: 0 aripiprazole 5 mg tablet 5 mg PO DAILY Qty: 90 RF: 0 aripiprazole 2 mg tablet 2 mg PO DAILY Qty: 90 RF: 0 divalproex [Depakote ER] 500 mg tablet extended release 24 hr 1,500 mg PO DAILY Qty: 270 RF: 0 fenofibrate 160 mg tablet 160 mg PO DAILY Qty: 90 RF: 0 sertraline 100 mg tablet 200 mg PO DAILY Qty: 90 RF: 0 sitagliptin 50 mg tablet 50 mg PO DAILY Qty: 90 RF: 0 glipizide 2.5 mg tablet extended release 24hr 2.5 mg PO DAILY Qty: 30 RF: 2 quetiapine 25 mg tablet 75 mg PO QPM RF: 0 metformin 1,000 mg tablet 1,000 mg PO BID RF: 0 cyanocobalamin (vitamin B-12) [Vitamin B-12] 1,000 mcg Tablet 1,000 mcg PO DAILY RF: 0 diphenhydramine HCl 25 mg Capsule 50 mg PO PRN PRN (Reason: dystonia/[place]) RF: 0 benztropine 1 mg tablet 1 mg PO BID RF: 0 lorazepam 1 mg tablet 1 mg PO PRN PRN (Reason: dystonia/[place]) RF: 0 omega [id number]-fish oil [Fish Oil] 1,000 mg (120 mg-180 mg) Capsule 2,000 mg PO BID RF: 0 magnesium citrate 400 mg 400 mg PO QPM RF: 0 Referrals: Vernon Cornell DO [Primary Care Provider] -
== END 2020-05-27 20:39 | disposition home or self-care (01) ==
PROVIDERS: Emergency Provider Emergency Medicine; PCP Family Medicine
DX: G24.02 Drug induced acute dystonia (principal)
CPT/HCPCS: 80053; 85025; 96361; 96374; 96375; 99283; 99284; J0515; J1200

== ENCOUNTER → 2020-08-11 14:24 | Outpatient (CLI) | payer OTHER, MEDICAID, SELFPAY ==
[2020-08-11 15:32] LABS: Hemoglobin A1C% w Est Avg Glu 6.8 % (4.0-6.0)
[2020-08-11 15:39] LABS: Alanine Aminotransferase 29 IU/L (<50); Albumin 5.1 g/dL (3.5-5.0); Albumin Globulin Ratio 1.9 (1.0-2.8); Alkaline Phosphatase 39 U/L (38-126); Aspartate Aminotransferase 31 IU/L (17-59); BUN Creatinine Ratio 25.4 (6-22); Bilirubin Total 0.6 mg/dL (0.2-1.3); Blood Urea Nitrogen 16 mg/dL (9-20); Calcium 10.3 mg/dL (8.4-10.2); Carbon Dioxide 26 mmol/L (22-32); Chloride 104 mmol/L (98-107); Cholesterol 138 mg/dL (140-199); Estimated Glomerular Filt Rate > 60.0 mL/min (>60); Globulin 2.7 g/dL (1.7-4.1); Glucose 146 mg/dL (70-100); HDL Cholesterol 23 mg/dL (40-60); HEMOLYSIS < 15 (0-50); LDL Cholesterol Calculated 55 mg/dL (<100); Potassium 4.4 mmol/L (3.4-5.1); Sodium 140 mmol/L (137-145); Total Protein 7.8 g/dL (6.3-8.2); Triglycerides 298 mg/dL (35-150)
== END ==
PROVIDERS: PCP Family Medicine; Referring Provider Family Medicine; Visit Provider Family Medicine
DX: E11.9 Type 2 diabetes mellitus without complications (principal)
CPT/HCPCS: 36415; 80053; 80061; 83036

== ENCOUNTER → 2021-03-07 10:03 | Outpatient (CLI) | payer OTHER, MEDICAID, SELFPAY ==
[2021-03-07 11:51] LABS: Hemoglobin A1C% w Est Avg Glu 6.8 % (4.0-6.0)
[2021-03-07 11:53] LABS: Add Manual Diff / Slide Review NO; Basophils Absolute Auto 0 /uL (0-100); Basophils Percent Auto 0.7 % (0-2); Eosinophils Absolute Auto 100 /uL (0-450); Eosinophils Percent Auto 2.3 % (2-4); Hematocrit 44.1 % (41-53); Hemoglobin 14.9 g/dL (13.5-17.5); Lymphocytes Absolute Auto 1800 /uL (1100-4500); Lymphocytes Percent Auto 41.1 % (25-40); Mean Corpuscular HGB Conc 33.9 % (30-36); Mean Corpuscular Volume 79.8 fL (80-100); Monocytes Absolute Auto 300 /uL (0-900); Monocytes Percent Auto 7.7 % (3-14); Neutrophils Absolute Auto 2100 /uL (1500-7000); Neutrophils Percent Auto 48.2 % (50-75); Platelet Count 159 X10^3/uL (150-400); Red Blood Cell Count 5.53 X10^6/uL (4.5-5.9); White Blood Cell Count 4.3 X10^3/uL (4.5-11.0)
[2021-03-07 12:09] LABS: Alanine Aminotransferase 29 IU/L (<50); Alkaline Phosphatase 38 U/L (38-126); Aspartate Aminotransferase 34 IU/L (17-59); Bilirubin Total 0.4 mg/dL (0.2-1.3); Blood Urea Nitrogen 14 mg/dL (9-20); Calcium 9.9 mg/dL (8.4-10.2); Carbon Dioxide 24 mmol/L (22-32); Chloride 105 mmol/L (98-107); Cholesterol 139 mg/dL (140-199); Estimated Glomerular Filt Rate > 60.0 mL/min (>60); Globulin 2.5 g/dL (1.7-4.1); Glucose 159 mg/dL (70-100); HDL Cholesterol 23 mg/dL (40-60); HEMOLYSIS < 15 (0-50); LDL Cholesterol Calculated 56 mg/dL (<100); Potassium 4.3 mmol/L (3.4-5.1); Sodium 139 mmol/L (137-145); Total Protein 7.5 g/dL (6.3-8.2); Triglycerides 300 mg/dL (35-150)
== END ==
PROVIDERS: PCP Family Medicine; Referring Provider Family Medicine; Visit Provider Family Medicine
DX: E11.9 Type 2 diabetes mellitus without complications (principal); E78.1 Pure hyperglyceridemia
CPT/HCPCS: 80053; 80061; 83036; 85025

== ENCOUNTER → 2021-11-28 08:28 | Outpatient (CLI) | payer OTHER, MEDICAID, SELFPAY ==
[2021-11-28 09:30] LABS: Add Manual Diff / Slide Review NO; Basophils Absolute Auto 0 /uL (0-100); Basophils Percent Auto 0.6 % (0-2); Eosinophils Absolute Auto 100 /uL (0-450); Eosinophils Percent Auto 2.8 % (2-4); Hematocrit 44.4 % (41-53); Hemoglobin 15.2 g/dL (13.5-17.5); Lymphocytes Absolute Auto 2300 /uL (1100-4500); Lymphocytes Percent Auto 48.9 % (25-40); Mean Corpuscular HGB Conc 34.2 % (30-36); Mean Corpuscular Hemoglobin 27.4 PG (26-34); Mean Corpuscular Volume 80.1 fL (80-100); Monocytes Absolute Auto 300 /uL (0-900); Monocytes Percent Auto 6.3 % (3-14); Neutrophils Absolute Auto 2000 /uL (1500-7000); Neutrophils Percent Auto 41.4 % (50-75); Platelet Count 159 X10^3/uL (150-400); Red Blood Cell Count 5.54 X10^6/uL (4.5-5.9); Red Cell Distribution Width 14.4 % (11.6-14.8); White Blood Cell Count 4.8 X10^3/uL (4.5-11.0)
[2021-11-28 10:07] LABS: Alanine Aminotransferase 23 IU/L (<50); Albumin 4.9 g/dL (3.5-5.0); Albumin Globulin Ratio 1.9 (1.0-2.8); Alkaline Phosphatase 38 U/L (38-126); Aspartate Aminotransferase 27 IU/L (17-59); BUN Creatinine Ratio 25.7 (6-22); Bilirubin Total 0.6 mg/dL (0.2-1.3); Blood Urea Nitrogen 18 mg/dL (9-20); Calcium 9.7 mg/dL (8.4-10.2); Carbon Dioxide 24 mmol/L (22-32); Chloride 104 mmol/L (98-107); Cholesterol 135 mg/dL (140-199); Estimated Glomerular Filt Rate > 60.0 mL/min (>60); Globulin 2.6 g/dL (1.7-4.1); Glucose 172 mg/dL (70-100); HDL Cholesterol 22 mg/dL (40-60); HEMOLYSIS < 15 (0-50); LDL Cholesterol Calculated 55 mg/dL (<100); Potassium 4.2 mmol/L (3.4-5.1); Sodium 139 mmol/L (137-145); Total Protein 7.5 g/dL (6.3-8.2); Triglycerides 290 mg/dL (35-150)
[2021-11-28 10:37] LABS: TSH w/ Reflex to FT4 1.13 uIU/mL (0.47-4.68)
[2021-11-28 10:42] LABS: Hemoglobin A1C% w Est Avg Glu 6.9 % (4.0-6.0)
== END ==
PROVIDERS: PCP Family Medicine; Referring Provider Family Medicine; Visit Provider Family Medicine
DX: Z00.00 Encounter for general adult medical examination without abnormal findings (principal); F25.0 Schizoaffective disorder, bipolar type; E11.9 Type 2 diabetes mellitus without complications
CPT/HCPCS: 36415; 80053; 80061; 83036; 84443; 85025

== ENCOUNTER → 2022-10-09 09:43 | Outpatient (CLI) | payer OTHER, MEDICAID, SELFPAY ==
[2022-10-09 10:34] LABS: Hemoglobin A1C% w Est Avg Glu 6.7 % (4.0-6.0)
[2022-10-09 11:03] LABS: Alanine Aminotransferase 30 IU/L (<50); Albumin 4.8 g/dL (3.5-5.0); Albumin Globulin Ratio 2.2 (1.0-2.8); Alkaline Phosphatase 43 U/L (38-126); Aspartate Aminotransferase 30 IU/L (17-59); BUN Creatinine Ratio 18.2 (6-22); Bilirubin Total 0.7 mg/dL (0.2-1.3); Blood Urea Nitrogen 12 mg/dL (9-20); Calcium 9.3 mg/dL (8.4-10.2); Carbon Dioxide 25 mmol/L (22-32); Chloride 101 mmol/L (98-107); Estimated Glomerular Filt Rate > 60 mL/min (>60); Globulin 2.2 g/dL (1.7-4.1); Glucose 176 mg/dL (70-100); HEMOLYSIS < 15 (0-50); Potassium 4.5 mmol/L (3.4-5.1); Sodium 139 mmol/L (137-145)
== END ==
PROVIDERS: PCP Family Medicine; Referring Provider Family Medicine; Visit Provider Family Medicine
DX: E11.9 Type 2 diabetes mellitus without complications (principal)
CPT/HCPCS: 36415; 80053; 83036

== ENCOUNTER → 2023-07-12 06:51 | Outpatient (CLI) | payer OTHER, MEDICAID, SELFPAY ==
[2023-07-12 09:13] LABS: Alanine Aminotransferase 29 IU/L (<50); Albumin 4.6 g/dL (3.5-5.0); Albumin Globulin Ratio 1.8 (1.0-2.8); Alkaline Phosphatase 32 U/L (38-126); Aspartate Aminotransferase 29 IU/L (17-59); BUN Creatinine Ratio 21.4 (6-22); Bilirubin Total 0.9 mg/dL (0.2-1.3); Blood Urea Nitrogen 15 mg/dL (9-20); Calcium 10.1 mg/dL (8.4-10.2); Carbon Dioxide 27 mmol/L (22-32); Chloride 98 mmol/L (98-107); Cholesterol 142 mg/dL (140-199); Estimated Glomerular Filt Rate > 60 mL/min (>60); Globulin 2.6 g/dL (1.7-4.1); Glucose 170 mg/dL (70-100); HDL Cholesterol 24 mg/dL (40-60); HEMOLYSIS < 15 (0-50); LDL Cholesterol Calculated 53 mg/dL (<100); Potassium 3.9 mmol/L (3.4-5.1); Sodium 137 mmol/L (137-145); Total Protein 7.2 g/dL (6.3-8.2); Triglycerides 326 mg/dL (35-150)
[2023-07-12 09:14] LABS: Microalbumin Urine Random 12.4 mg/dL (0-1.6)
[2023-07-12 09:17] LABS: Creatinine Urine Random 143.9 mg/dL; Microalbumi Creatinin Ratio Ur 86.1 ug/mg CR (<30)
[2023-07-12 09:27] LABS: Hemoglobin A1C% w Est Avg Glu 7.5 % (4.0-6.0)
== END ==
PROVIDERS: PCP Family Medicine; Referring Provider Family Medicine; Visit Provider Family Medicine
DX: E11.9 Type 2 diabetes mellitus without complications (principal)
CPT/HCPCS: 36415; 80053; 80061; 82043; 82570; 83036

== ENCOUNTER → 2023-07-13 16:13 | Outpatient (CLI) | payer OTHER, MEDICAID, SELFPAY ==
[2023-07-13 18:28] LABS: Appearance Urine UA CLEAR; Bilirubin Urine UA NEGATIVE (NEGATIVE); Color Urine UA YELLOW; Glucose Urine UA 3+ g/dL (Negative); Ketones Urine UA NEGATIVE (NEGATIVE); Leukocyte Esterase Urine UA NEGATIVE (NEGATIVE); Nitrite Urine UA NEGATIVE (Negative); Occult Blood Urine UA TRACE-INTACT (Negative); Protein Urine UA NEGATIVE (Negative); Urobilinogen Urine UA 0.2 E.U./dL (0.2); pH Urine UA 6.5 (4.5-8.0)
[2023-07-13 19:37] LABS: Bacteria Urine Occasional (0-1); Culture Indicated Urine Specimen Cultured; RBC Urine 1-5/HPF (0-5/HPF); Squamous Epithelial Cell Urine 0-1 /HPF (0-5/HPF); WBC Urine 5-10/HPF (0-5/HPF)
== END ==
PROVIDERS: PCP Family Medicine; Referring Provider Family Medicine; Visit Provider Family Medicine
DX: R30.0 Dysuria (principal); E11.9 Type 2 diabetes mellitus without complications; E78.1 Pure hyperglyceridemia
CPT/HCPCS: 81001; 87086

== ENCOUNTER → 2023-11-23 08:45 | Outpatient (CLI) | payer OTHER, MEDICAID, SELFPAY ==
[2023-11-23 10:04] LABS: Hemoglobin A1C% w Est Avg Glu 6.9 % (4.0-6.0)
[2023-11-23 10:20] LABS: Alanine Aminotransferase 21 IU/L (<50); Albumin 4.5 g/dL (3.5-5.0); Alkaline Phosphatase 39 U/L (38-126); Aspartate Aminotransferase 24 IU/L (17-59); BUN Creatinine Ratio 28.8 (6-22); Bilirubin Total 0.7 mg/dL (0.2-1.3); Blood Urea Nitrogen 21 mg/dL (9-20); Calcium 9.6 mg/dL (8.4-10.2); Carbon Dioxide 23 mmol/L (22-32); Chloride 107 mmol/L (98-107); Estimated Glomerular Filt Rate > 60 mL/min (>60); Globulin 2.2 g/dL (1.7-4.1); Glucose 194 mg/dL (70-100); HEMOLYSIS < 15 (0-50); Potassium 4.3 mmol/L (3.4-5.1); Sodium 137 mmol/L (137-145); Total Protein 6.7 g/dL (6.3-8.2)
== END ==
LOC: LAB 08:45
PROVIDERS: PCP Family Medicine; Referring Provider Family Medicine; Visit Provider Family Medicine
DX: E11.21 Type 2 diabetes mellitus with diabetic nephropathy (principal); E11.9 Type 2 diabetes mellitus without complications
CPT/HCPCS: 36415; 80053; 83036

== ENCOUNTER → 2024-02-06 13:53 | Outpatient (CLI) | payer OTHER, MEDICAID, SELFPAY | PROVIDERS: PCP Family Medicine; Referring Provider Nurse Practitioner Family; Visit Provider Nurse Practitioner Family | DX: R30.0 Dysuria (principal) | CPT/HCPCS: 87077; 87086; 87186 ==

== ENCOUNTER → 2024-02-18 13:11 | Outpatient (CLI) | payer OTHER, MEDICAID, SELFPAY | PROVIDERS: PCP Family Medicine; Visit Provider Nurse Practitioner Family | DX: R30.0 Dysuria (principal) | CPT/HCPCS: 87077; 87086; 87186 ==

== ENCOUNTER → 2024-03-20 10:46 | Outpatient (CLI) | payer OTHER, MEDICAID, SELFPAY ==
[2024-03-20 12:59] LABS: Alanine Aminotransferase 28 IU/L (<50); Albumin Globulin Ratio 2.2 (1.0-2.8); Alkaline Phosphatase 42 U/L (38-126); Aspartate Aminotransferase 31 IU/L (17-59); Bilirubin Total 0.8 mg/dL (0.2-1.3); Blood Urea Nitrogen 21 mg/dL (9-20); Calcium 9.9 mg/dL (8.4-10.2); Carbon Dioxide 23 mmol/L (22-32); Chloride 105 mmol/L (98-107); Cholesterol 119 mg/dL (140-199); Estimated Glomerular Filt Rate > 60 mL/min (>60); Globulin 2.3 g/dL (1.7-4.1); Glucose 148 mg/dL (70-100); HDL Cholesterol 24 mg/dL (40-60); HEMOLYSIS < 15 (0-50); LDL Cholesterol Calculated 55 mg/dL (<100); Potassium 4.3 mmol/L (3.4-5.1); Sodium 139 mmol/L (137-145); Total Protein 7.3 g/dL (6.3-8.2); Triglycerides 201 mg/dL (35-150)
[2024-03-20 13:04] LABS: Hemoglobin A1C% w Est Avg Glu 6.7 % (4.0-6.0)
== END ==
PROVIDERS: PCP Family Medicine; Referring Provider Family Medicine; Visit Provider Family Medicine
DX: E11.9 Type 2 diabetes mellitus without complications (principal); E78.1 Pure hyperglyceridemia
CPT/HCPCS: 36415; 80053; 80061; 83036

== ENCOUNTER → 2024-07-08 10:07 | Outpatient (CLI) | payer OTHER, MEDICAID, SELFPAY ==
[2024-07-08 11:25] LABS: Hemoglobin A1C% w Est Avg Glu 6.1 % (4.0-6.0)
[2024-07-08 11:32] LABS: Creatinine Urine Random 115.02 mg/dL
[2024-07-08 11:34] LABS: Alanine Aminotransferase 25 IU/L (<50); Albumin 4.9 g/dL (3.5-5.0); Albumin Globulin Ratio 2.3 (1.0-2.8); Alkaline Phosphatase 45 U/L (38-126); Aspartate Aminotransferase 33 IU/L (17-59); BUN Creatinine Ratio 34.7 (6-22); Bilirubin Total 0.7 mg/dL (0.2-1.3); Blood Urea Nitrogen 25 mg/dL (9-20); Calcium 10.2 mg/dL (8.4-10.2); Carbon Dioxide 21 mmol/L (22-32); Chloride 103 mmol/L (98-107); Cholesterol 142 mg/dL (140-199); Estimated Glomerular Filt Rate > 60 mL/min (>60); Globulin 2.1 g/dL (1.7-4.1); Glucose 174 mg/dL (70-100); HDL Cholesterol 25 mg/dL (40-60); HEMOLYSIS < 15 (0-50); LDL Cholesterol Calculated 61 mg/dL (<100); Potassium 4.6 mmol/L (3.4-5.1); Sodium 136 mmol/L (137-145); Triglycerides 279 mg/dL (35-150)
[2024-07-08 11:36] LABS: Microalbumin Urine Random 11.8 mg/dL (0-1.6)
== END ==
PROVIDERS: PCP Family Medicine; Referring Provider Family Medicine; Visit Provider Family Medicine
DX: E11.9 Type 2 diabetes mellitus without complications (principal); E78.2 Mixed hyperlipidemia
CPT/HCPCS: 36415; 80053; 80061; 82043; 82570; 83036

== ENCOUNTER → 2024-11-08 08:19 | Outpatient (CLI) | payer MEDICARE, MEDICAID, SELFPAY ==
[2024-11-08 09:50] LABS: BUN Creatinine Ratio 19.4 (6-22); Blood Urea Nitrogen 13 mg/dL (9-20); Calcium 9.9 mg/dL (8.4-10.2); Carbon Dioxide 19 mmol/L (22-32); Chloride 106 mmol/L (98-107); Estimated Glomerular Filt Rate > 60 mL/min (>60); Glucose 129 mg/dL (70-100); HEMOLYSIS < 15 (0-50); Potassium 4.3 mmol/L (3.4-5.1); Sodium 137 mmol/L (137-145)
== END ==
PROVIDERS: PCP Family Medicine; Referring Provider Family Medicine; Visit Provider Family Medicine
DX: E11.9 Type 2 diabetes mellitus without complications (principal)
CPT/HCPCS: 36415; 80048

== ENCOUNTER 2024-11-14 11:45 | Emergency (ER) | payer MEDICARE, MEDICAID, SELFPAY ==
[2024-11-14 12:13] VITALS: BP 127/66; PULSE 89; RESP 14; TEMP 36.8; O2SAT 96; BMI 28.3
[2024-11-14 13:19] LABS: Urine Volume 10mL (spun)
[2024-11-14 13:23] LABS: Bacteria Urine None Seen; Culture Indicated Urine Cult Not Indicated; RBC Urine >100/HPF (0-5/HPF); Squamous Epithelial Cell Urine None Seen (0-5/HPF); WBC Urine None Seen (0-5/HPF)
[2024-11-14 14:48] LABS: Add Manual Diff / Slide Review NO; Basophils Absolute Auto 0 /uL (0-100); Basophils Percent Auto 0.6 % (0-2); Eosinophils Absolute Auto 100 /uL (0-450); Eosinophils Percent Auto 1.9 % (2-4); Hematocrit 42.9 % (41-53); Hemoglobin 14.9 g/dL (13.5-17.5); Lymphocytes Absolute Auto 2200 /uL (1100-4500); Lymphocytes Percent Auto 48.7 % (25-40); Mean Corpuscular HGB Conc 34.8 % (30-36); Mean Corpuscular Hemoglobin 28.6 PG (26-34); Mean Corpuscular Volume 82.2 fL (80-100); Monocytes Absolute Auto 200 /uL (0-900); Monocytes Percent Auto 5.2 % (3-14); Neutrophils Absolute Auto 2000 /uL (1500-7000); Neutrophils Percent Auto 43.6 % (50-75); Platelet Count 172 X10^3/uL (150-400); Red Blood Cell Count 5.22 X10^6/uL (4.5-5.9); Red Cell Distribution Width 13.7 % (11.6-14.8); White Blood Cell Count 4.5 X10^3/uL (4.5-11.0)
[2024-11-14 14:55] VITALS: BP 111/71; PULSE 95; RESP 18; TEMP 36.6; O2SAT 96
--- NOTE | 2024-11-14 14:56 | ED.MALEGU ---
HPI - Male Genitourinary <Lucia Ruelas PA-C - Last Filed: 11/14/24 17:18> General Chief complaint: Urogenital-Male Stated complaint: Dark Red Urine Time Seen by Provider: 11/14/24 13:47 Source: patient Mode of arrival: Family Vehicle History of Present Illness HPI Narrative: Mr. Monique is a very pleasant 33-year-old gentleman with a past medical history of schizoaffective disorder, type 2 diabetes on Sunday on metformin, HTN, HLD, SONG who presents to the emergency department for dark red urine that started this morning. Patient states when he woke up his urine was dark red. 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 He admits to some right lower quadrant abdominal pain that is intermittent and very mild. He denies flank pain, fevers, chills, dysuria, frequency, urgency or difficulty urinating, penile pain, penile lesions, testicular pain or swelling. Reports going on a long walk Sunday but denies any other recent strenuous activity. Reports having blood in his urine in the past because of urinary tract infections. He has not currently sexually active. He denies past history of kidney stones. Related Data Home Medications Medication Instructions Recorded Confirmed cyanocobalamin (vitamin B-12) 1,000 mcg PO DAILY 07/24/18 08/14/24 1,000 mcg tablet (Vitamin B-12) diphenhydramine HCl 25 mg capsule 50 mg PO PRN PRN dystonia/catonia 07/24/18 08/14/24 lorazepam 1 mg tablet 1 mg PO PRN PRN dystonia/catonia 07/24/18 08/14/24 magnesium citrate 400 mg PO QPM 07/24/18 08/14/24 omega 1-kmx-udo-fish oil 1,000 mg 2,000 mg PO BID 07/24/18 08/14/24 (120 mg-180 mg) capsule (Fish Oil) lancets 33 gauge (BD Ultra Fine #100 ea 05/07/20 08/14/24 Lancets) aripiprazole 5 mg tablet 5 mg PO DAILY 03/07/21 08/14/24 melatonin 5 mg tablet 5 mg PO BEDTIME PRN 03/07/21 08/14/24 benztropine 1 mg tablet 1 mg PO BID 11/23/23 08/14/24 divalproex 500 mg tablet,extended 1,500 mg PO BID 11/23/23 08/14/24 release 24 hr (Depakote ER) quetiapine 25 mg tablet 75 mg PO QPM 11/23/23 08/14/24 fenofibrate 50 mg capsule 100 mg PO DAILY 08/14/24 08/14/24 sertraline 25 mg tablet 25 mg PO DAILY 08/14/24 08/14/24 tirzepatide 5 mg/0.5 mL mg SUBCUT 08/14/24 08/14/24 subcutaneous pen injector (Oralia) Previous Rx's Medication Instructions Recorded blood-glucose meter #1 ea 12/20/20 lancets 33 gauge (BD Ultra Fine #100 ea 12/20/20 Lancets) blood sugar diagnostic (Blood #100 ea 06/21/23 Glucose Test strips) flash glucose sensor (FreeStyle #1 ea 09/28/23 Alyssa 2 Sensor kit) blood-glucose meter,continuous #1 ea 11/23/23 (FreeStyle Alyssa 3 [place]) metformin 1,000 mg tablet See Rx Instructions .Route 11/23/23 .COMPLEX #180 tabs pioglitazone 15 mg tablet (Actos) 15 mg PO DAILY #90 tabs 11/23/23 blood-glucose sensor (FreeStyle #6 ea 02/04/24 Alyssa 3 Sensor device) tamsulosin 0.4 mg capsule (Flomax) 0.4 mg PO DAILY 14 days #14 caps 11/14/24 Allergies Allergy/AdvReac Type Severity Reaction Status Date / Time Penicillins [PENICILLINS] Allergy Severe rash Verified 08/14/24 13:30 Sulfa (Sulfonamide Allergy Severe bones itch Verified 08/14/24 13:30 Antibiotics) [SULFA (SULFONAMIDE ANTIBIOTICS)] ziprasidone [ZIPRASIDONE] AdvReac Severe locked Verified 08/14/24 13:30 muscles, hypotension Review of Systems <Lucia Ruelas PA-C - Last Filed: 11/14/24 17:18> Review of Systems ROS Unobtainable: All systems reviewed & are unremarkable except as noted in HPI and below Patient History <Lucia Ruelas PA-C - Last Filed: 11/14/24 17:18> Medical History Diabetic kidney disease Dysuria Well adult exam Depression Schizoaffective disorder, bipolar type Hypertriglyceridemia Type 2 diabetes mellitus No pertinent family history Aspergers' syndrome ADHD OCD (obsessive compulsive disorder) Dystonia Surgical History No pertinent past surgical history Social History household members: family Smoking Status: Never smoker alcohol intake: never substance use type: does not use Smoking Status: Never smoker alcohol intake frequency: holidays/special occasions only Exam <Lucia Ruelas PA-C - Last Filed: 11/14/24 17:18> Narrative Exam Narrative: GENERAL: 33 year old patient appears stated age. Well-developed patient, in no acute distress. HEAD: Atraumatic. Normocephalic. NECK: Trachea midline. Cervical ROM intact. CARDIOVASCULAR: Regular rate and rhythm. RESPIRATORY: ?Nonlabored respirations. ?Speaking in clear, full sentences. ?Clear to auscultation. Breath sounds equal bilaterally. No wheezes, rales, or rhonchi. ? GASTROINTESTINAL: Abdomen soft, non-tender, nondistended. Normal bowel sounds. Mild tenderness with deep palpation of right lower quadrant. No rebound or guarding. EXTREMITIES: No edema or joint tenderness. BACK: No CVA tenderness. NEURO: AOx3. ?Clear speech. ?Moves all 4 extremities appropriately. Mild bilateral hand tremor, chronic SKIN: No rash or erythema of visible areas Initial Vital Signs Initial Vital Signs: Vital Signs Temperature 98.3 F 11/14/24 12:13 Pulse Rate 89 11/14/24 12:13 Respiratory Rate 14 11/14/24 12:13 Blood Pressure 127/66 11/14/24 12:13 Pulse Oximetry 96 11/14/24 12:13 Oxygen Delivery Method Room Air 11/14/24 12:13 <Francisco Javier Bender MD - Last Filed: 11/14/24 20:47> Initial Vital Signs Initial Vital Signs: Vital Signs Temperature 98.3 F 11/14/24 12:13 Pulse Rate 89 11/14/24 12:13 Respiratory Rate 14 11/14/24 12:13 Blood Pressure 127/66 11/14/24 12:13 Pulse Oximetry 96 11/14/24 12:13 Oxygen Delivery Method Room Air 11/14/24 12:13 Course <Lucia Ruelas PA-C - Last Filed: 11/14/24 17:18> Orders Ordered: ED Orders 11/14/24 13:00 Urine Microscopic Stat 11/14/24 14:29 CBC Auto Diff [Complete Blood Count AUTO DIFF] Stat CK [Creatine Kinase] Stat CMP [Comprehensive Metabolic Panel] Stat 11/14/24 14:55 CT IVP A/P W/WO Stat Discontinued Medications Sodium Chloride (Normal Saline 0.9%) 1,000 mls @ 1,000 mls/hr IV BOLUS ONE Stop: 11/14/24 15:54 Last Infusion: 11/14/24 16:08 Dose: Infused Documented By: Admin: 11/14/24 15:30 Dose: 1,000 mls/hr Documented By: MATTHEW Vital Signs Vital signs: Vital Signs - 8 hr 11/14/24 14:55 Temperature 98 F Pulse Rate 95 H Respiratory Rate 18 Blood Pressure 111/71 Pulse Oximetry 96 Oxygen Delivery Method Room Air <Francisco Javier Bender MD - Last Filed: 11/14/24 20:47> Orders Ordered: ED Orders 11/14/24 13:00 Urine Microscopic Stat 11/14/24 14:29 CBC Auto Diff [Complete Blood Count AUTO DIFF] Stat CK [Creatine Kinase] Stat CMP [Comprehensive Metabolic Panel] Stat 11/14/24 14:55 CT IVP A/P W/WO Stat Discontinued Medications Sodium Chloride (Normal Saline 0.9%) 1,000 mls @ 1,000 mls/hr IV BOLUS ONE Stop: 11/14/24 15:54 Last Infusion: 11/14/24 16:08 Dose: Infused Documented By: Admin: 11/14/24 15:30 Dose: 1,000 mls/hr Documented By: MATTHEW Vital Signs Vital signs: Vital Signs - 8 hr 11/14/24 14:55 Temperature 98 F Pulse Rate 95 H Respiratory Rate 18 Blood Pressure 111/71 Pulse Oximetry 96 Oxygen Delivery Method Room Air MDM - Male Genitourinary <Lucia Ruelas PA-C - Last Filed: 11/14/24 17:18> Medical Records Attestation: I reviewed the patient's medical records. Lab Data 11/14/24 14:29 11/14/24 14:29 Labs: Lab Results 11/14/24 11/14/24 11/14/24 Range/Units 13:00 13:02 14:29 WBC 4.5 (4.5-11.0) X10^3/uL RBC 5.22 (4.5-5.9) X10^6/uL Hgb 14.9 (13.5-17.5) g/dL Hct 42.9 (41-53) % MCV 82.2 (80-100) fL MCH 28.6 (26-34) PG MCHC 34.8 (30-36) % RDW 13.7 (11.6-14.8) % Plt Count 172 (150-400) X10^3/uL Neut % (Auto) 43.6 L (50-75) % Lymph % (Auto) 48.7 H (25-40) % [place] % (Auto) 5.2 (3-14) % Eos % (Auto) 1.9 L (2-4) % Baso % (Auto) 0.6 (0-2) % Neut # (Auto) 2000 (0382-1290) /uL Lymph # (Auto) 2200 (7315-4229) /uL [place] # (Auto) 200 (0-900) /uL Eos # (Auto) 100 (0-450) /uL Baso # (Auto) 0 (0-100) /uL Sodium 139 (137-145) mmol/L Potassium 4.3 (3.4-5.1) mmol/L Chloride 105 (98-107) mmol/L Carbon Dioxide 19 L (22-32) mmol/L BUN 16 (9-20) mg/dL Creatinine 0.73 (0.66-1.25) mg/dL Estimated GFR > 60 (>60) mL/min BUN/Creatinine Ratio 21.9 (6-22) Glucose 142 H (70-100) mg/dL Calcium 11.1 H (8.4-10.2) mg/dL Total Bilirubin 0.9 (0.2-1.3) mg/dL AST 45 (17-59) IU/L ALT 37 (<50) IU/L Alkaline Phosphatase 44 (38-126) U/L Total Creatine Kinase 54 L (55-170) U/L Total Protein 7.4 (6.3-8.2) g/dL Albumin 5.1 H (3.5-5.0) g/dL Globulin 2.3 (1.7-4.1) g/dL Albumin/Globulin Ratio 2.2 (1.0-2.8) Urine RBC >100/hpf H (0-5/HPF) Urine WBC None seen (0-5/HPF) Ur Squamous Epith Cells None seen (0-5/HPF) Urine Bacteria None seen (None) Ur Culture Indicated? Cult not indicated Vol Urine Centrifuged 10ml (spun) Ur Chlamydia DNA (PCR) Cancelled N gonorrhoeae DNA (PCR) Cancelled Imaging Data CT Hematuria Protocol: Radiologist's Impression: PROCEDURE: CT IVP A/P W/WO INDICATIONS: gross hematuria; int RLQ abd pain TECHNIQUE: Optional 5 mm thick noncontrast images acquired from the diaphragm to the symphysis pubis. After the administration of intravenous contrast, 5 mm thick images acquired from the diaphragm to the symphysis pubis after a 10-minute delay. 2 mm thick coronal and sagittal reformats were then performed of the kidneys and ureters. For radiation dose reduction, the following was used: automated exposure control, adjustment of mA and/or kV according to patient size. COMPARISON: None. FINDINGS: Image quality: Diagnostic. Kidneys and Ureters: Both kidneys are normal in size. Mild prominence of right renal collecting system is seen. 1 x 0.7 cm stone is noted within right renal pelvis and measures 941 Hounsfield unit in density. Mild right perinephric fat stranding is seen. Mild right hydroureter with periureteral fat stranding . There is a 3 mm stone seen in distal right ureter just proximal to right UVJ series 2, image 137. No left-sided hydronephrosis or hydroureter. Punctate 1-2 mm nonobstructing left renal stones are seen. There is normal bilateral renal enhancement. Renal calyces appear normal in morphology when filled with contrast. Both ureters are opacified. Mild right-sided hydroureter is again seen. Left ureter is normal in size . Bladder: Bladder wall thickness is normal. No calcified bladder stones. OTHER: Lower chest: Unremarkable. Liver: No solid mass. Gallbladder: Contracted gallbladder. No radiopaque gallstones or wall thickening. Biliary ducts: No biliary dilation. Pancreas: No ductal dilation. Spleen: Size is within normal limits. Adrenal Glands: No adrenal nodules. Stomach and Bowel: Normal colonic caliber, without significant wall thickening. Appendix is visualized and is within normal limits. Peritoneum: No abnormal intraperitoneal fluid. No free air. Ventral Wall: No hernia. Abdominal Nodes: No retroperitoneal or mesenteric adenopathy by size criteria. Vessels: Aorta and inferior vena cava are normal in size. PELVIS: Pelvic Organs: Unremarkable. Pelvic Nodes: No enlarged lymph nodes. Miscellaneous: No inguinal hernias are seen. Bones: No aggressive osseous abnormality. IMPRESSION: 1. 3 mm right distal ureteral stone with mild right-sided hydronephrosis and right hydroureter extending to the level of the stone. Mild right perinephric fat stranding and periureteral fat stranding. 2. Bilateral nonobstructing renal stones as above. No left-sided hydronephrosis or hydroureter. Normal appearing urinary bladder. No enhancing renal lesion. 3. No bowel obstruction or abnormal bowel wall thickening. Normal appendix. No free fluid or free air. [facility] Narrative Medical decision making narrative: 33-year-old gentleman with a past medical history of schizoaffective disorder, type 2 diabetes on Sunday on metformin, HTN, HLD, SONG who presents to the emergency department for dark red urine that started this morning. Differential diagnosis includes but is not limited to UTI, pyelonephritis, nephrolithiasis, ureterolithiasis, malignancy, rhabdomyolysis, etc. On exam patient is in no acute distress, nontoxic appearing, vital signs within normal limits. He is having 1 day of gross hematuria, no clots, with intermittent right lower quadrant abdominal pain that is not currently present. Urinalysis reveals gross blood & many RBCs but no signs of infection. We will proceed with lab work including CK, and CT hematuria protocol for further evaluation. Urine micro reveals greater than 100 urine RBCs with no WBCs, no squamous epithelial cells, no signs of infection. Normal WBC count 4.5. Normal renal function. Glucose 142. Calcium elevated at 11.1. CK 54. Patient was treated with IV fluids. CT hematuria protocol reveals 3 mm right distal ureteral stone with mild right-sided hydronephrosis and right hydroureter extending to the level of the stone. Mild right perinephric fat stranding and periureteral fat stranding. This explains patient's symptoms. He also has bilateral nonobstructing renal stones. No bowel obstruction. Normal appendix. Patient denies any pain at this time. We will prescribe him Flomax for right kidney stone, also recommended ibuprofen/acetaminophen if needed for pain. Advised he follow up with Urology and he was provided with a urine strainer. We discussed strict ED return precautions. He verbalized understanding of all information is agreeable with the plan. Advised PCP follow up. He is stable for discharge home. <Francisco Javier Bender MD - Last Filed: 11/14/24 20:47> Lab Data Labs: Lab Results 11/14/24 11/14/24 11/14/24 Range/Units 13:00 13:02 14:29 WBC 4.5 (4.5-11.0) X10^3/uL RBC 5.22 (4.5-5.9) X10^6/uL Hgb 14.9 (13.5-17.5) g/dL Hct 42.9 (41-53) % MCV 82.2 (80-100) fL MCH 28.6 (26-34) PG MCHC 34.8 (30-36) % RDW 13.7 (11.6-14.8) % Plt Count 172 (150-400) X10^3/uL Neut % (Auto) 43.6 L (50-75) % Lymph % (Auto) 48.7 H (25-40) % [place] % (Auto) 5.2 (3-14) % Eos % (Auto) 1.9 L (2-4) % Baso % (Auto) 0.6 (0-2) % Neut # (Auto) 2000 (5381-8729) /uL Lymph # (Auto) 2200 (2766-0398) /uL [place] # (Auto) 200 (0-900) /uL Eos # (Auto) 100 (0-450) /uL Baso # (Auto) 0 (0-100) /uL Sodium 139 (137-145) mmol/L Potassium 4.3 (3.4-5.1) mmol/L Chloride 105 (98-107) mmol/L Carbon Dioxide 19 L (22-32) mmol/L BUN 16 (9-20) mg/dL Creatinine 0.73 (0.66-1.25) mg/dL Estimated GFR > 60 (>60) mL/min BUN/Creatinine Ratio 21.9 (6-22) Glucose 142 H (70-100) mg/dL Calcium 11.1 H (8.4-10.2) mg/dL Total Bilirubin 0.9 (0.2-1.3) mg/dL AST 45 (17-59) IU/L ALT 37 (<50) IU/L Alkaline Phosphatase 44 (38-126) U/L Total Creatine Kinase 54 L (55-170) U/L Total Protein 7.4 (6.3-8.2) g/dL Albumin 5.1 H (3.5-5.0) g/dL Globulin 2.3 (1.7-4.1) g/dL Albumin/Globulin Ratio 2.2 (1.0-2.8) Urine RBC >100/hpf H (0-5/HPF) Urine WBC None seen (0-5/HPF) Ur Squamous Epith Cells None seen (0-5/HPF) Urine Bacteria None seen (None) Ur Culture Indicated? Cult not indicated Vol Urine Centrifuged 10ml (spun) Ur Chlamydia DNA (PCR) Cancelled N gonorrhoeae DNA (PCR) Cancelled Discharge Plan Departure Patient Disposition: Home Clinical Impression: Calculus of distal right ureter, Hypercalcemia Hematuria Qualifiers: Hematuria type: unspecified type Qualified Code(s): R31.9 - Hematuria, unspecified Instructions: DI for Kidney Stones Activity Restrictions/Additional Instructions: Thank you for coming to the emergency department. Today you were evaluated for blood in your urine. Your workup today revealed a right-sided kidney stone. I prescribed you Flomax to take daily until you pass the stone. Please use ibuprofen and Tylenol for pain. Please call to schedule an appointment with [facility] for further evaluation. Please take Ibuprofen (Motrin/Advil) or Acetaminophen (Tylenol) for pain. These are available over the counter. You may take Ibuprofen 600 mg every 8 hours with food for pain. You may also take Acetaminophen 650 mg every 4-6 hours for pain. Do not exceed 3000 mg of Tylenol a day as this can cause liver damage. Do not drink alcohol with either of these medications. Please follow up with your primary care doctor within the next 2-3 days for ER follow-up. (If you do not have a PCP you can call [phone]. ?to schedule an appointment with an [facility] Primary Care Provider) IF YOU DEVELOP ANY NEW OR WORSENING SYMPTOMS, RETURN TO THE ER! Please read the attached instructions, they highlight more specific treatments and interventions for you at home. Thank you for letting me participate in your care, Lucia Ruelas PA-C Prescriptions: New tamsulosin [Flomax] 0.4 mg capsule 0.4 mg PO DAILY 14 Days Qty: 14 0RF No Action (DME) blood-glucose meter Misc See Rx Instructions .ROUTE .MEDSUPPLY Qty: 1 0RF Rx Instructions: Use to test blood glucose BID (DME) lancets [BD Ultra Fine Lancets] 33 gauge misc See Rx Instructions .ROUTE .MEDSUPPLY Qty: 100 6RF Rx Instructions: Use to test blood glucose twice daily (DME) Blood Glucose Test Strip See Rx Instructions .ROUTE .MEDSUPPLY Qty: 100 6RF Rx Instructions: Use to test blood glucose twice daily. (DME) FreeStyle Alyssa 2 Sensor Kit See Rx Instructions .ROUTE .COMPLEX Qty: 1 3RF Dose Instruction: USE DIRECTED. CHANGE EVERY 14 DAYS. Rx Instructions: USE DIRECTED. CHANGE EVERY 14 DAYS. (DME) FreeStyle Alyssa 3 Sensor Device See Rx Instructions .ROUTE .COMPLEX Qty: 6 6RF Dose Instruction: USE TO CONTINUOUSLY CHECK BLOOD SUGARS. CHANGE EVERY 14 DAYS Rx Instructions: USE TO CONTINUOUSLY CHECK BLOOD SUGARS. CHANGE EVERY 14 DAYS (DME) lancets [BD Ultra Fine Lancets] 33 gauge misc See Rx Instructions .ROUTE .MEDSUPPLY Qty: 100 Rx Instructions: As directed fenofibrate 50 mg capsule 100 mg PO DAILY sertraline 25 mg tablet 25 mg PO DAILY Mounjaro 5 mg/0.5 mL pen injector SUBCUT Patient Comments: [NO ORIGINAL SIG] aripiprazole 5 mg tablet 5 mg PO DAILY melatonin 5 mg tablet 5 mg PO BEDTIME PRN divalproex [Depakote ER] 500 mg tablet extended release 24 hr 1,500 mg PO BID (DME) FreeStyle Alyssa 3 [place] Misc See Rx Instructions .Route Qty: 1 0RF Rx Instructions: use to continuously read blood sugars metformin 1,000 mg tablet See Rx Instructions .ROUTE .COMPLEX Qty: 180 3RF Dose Instruction: TAKE ONE TABLET BY MOUTH TWICE DAILY Rx Instructions: TAKE ONE TABLET BY MOUTH TWICE DAILY pioglitazone [Actos] 15 mg tablet 15 mg PO DAILY Qty: 90 3RF cyanocobalamin (vitamin B-12) [Vitamin B-12] 1,000 mcg Tablet 1,000 mcg PO DAILY diphenhydramine HCl 25 mg Capsule 50 mg PO PRN PRN (Reason: dystonia/catonia) Patient Comments: when symptoms begin lorazepam 1 mg tablet 1 mg PO PRN PRN (Reason: dystonia/catonia) Patient Comments: when symptoms begin omega 0-ytd-xur-fish oil [Fish Oil] 1,000 mg (120 mg-180 mg) Capsule 2,000 mg PO BID magnesium citrate 400 mg 400 mg PO QPM quetiapine 25 mg tablet 75 mg PO QPM benztropine 1 mg tablet 1 mg PO BID Patient Comments: when symptoms begin Referrals: Vernon Cornell, [Primary Care Provider] - Stand Alone Forms: Patient Portal/API/Survey ED Sign-out <Francisco Javier Bender MD - Last Filed: 11/14/24 20:47> Cosign ED Attending Eliazarature Attestation: I was immediately available in the department for consultation. This documentation has been reviewed and I agree with assessment and plan. Supervised by Francisco Javier Bneder MD
[2024-11-14 14:59] LABS: Alanine Aminotransferase 37 IU/L (<50); Albumin 5.1 g/dL (3.5-5.0); Albumin Globulin Ratio 2.2 (1.0-2.8); Alkaline Phosphatase 44 U/L (38-126); Aspartate Aminotransferase 45 IU/L (17-59); BUN Creatinine Ratio 21.9 (6-22); Bilirubin Total 0.9 mg/dL (0.2-1.3); Blood Urea Nitrogen 16 mg/dL (9-20); Calcium 11.1 mg/dL (8.4-10.2); Carbon Dioxide 19 mmol/L (22-32); Chloride 105 mmol/L (98-107); Creatine Kinase 54 U/L (55-170); Estimated Glomerular Filt Rate > 60 mL/min (>60); Globulin 2.3 g/dL (1.7-4.1); Glucose 142 mg/dL (70-100); HEMOLYSIS 18 (0-50); Potassium 4.3 mmol/L (3.4-5.1); Sodium 139 mmol/L (137-145); Total Protein 7.4 g/dL (6.3-8.2)
[2024-11-14] MEDS: SODIUM CHLORIDE 0.9% 1,000 ML 1000 ML IV (15:30)
== END 2024-11-14 16:45 | disposition home or self-care (01) ==
PROVIDERS: Emergency Medicine; Emergency Provider Physician Assistant; PCP Family Medicine
DX: N20.1 Calculus of ureter (principal); E83.52 Hypercalcemia; R31.9 Hematuria, unspecified; R10.31 Right lower quadrant pain
CPT/HCPCS: 36415; 74178; 80053; 81015; 82550; 85025; 99284

== ENCOUNTER → 2025-01-12 10:44 | Outpatient (CLI) | payer MEDICARE, MEDICAID, SELFPAY ==
[2025-01-12 11:37] LABS: Hemoglobin A1C% w Est Avg Glu 5.3 % (4.0-6.0)
[2025-01-12 11:49] LABS: Alanine Aminotransferase 33 IU/L (<50); Albumin Globulin Ratio 2.5 (1.0-2.8); Alkaline Phosphatase 48 U/L (38-126); Aspartate Aminotransferase 31 IU/L (17-59); BUN Creatinine Ratio 26.3 (6-22); Bilirubin Total 0.7 mg/dL (0.2-1.3); Blood Urea Nitrogen 20 mg/dL (9-20); Calcium 9.7 mg/dL (8.4-10.2); Carbon Dioxide 21 mmol/L (22-32); Chloride 106 mmol/L (98-107); Estimated Glomerular Filt Rate > 60 mL/min (>60); Glucose 149 mg/dL (70-99); HEMOLYSIS < 15 (0-50); Potassium 4.4 mmol/L (3.4-5.1); Sodium 139 mmol/L (137-145)
== END ==
PROVIDERS: PCP Family Medicine; Referring Provider Family Medicine; Visit Provider Family Medicine
DX: E11.21 Type 2 diabetes mellitus with diabetic nephropathy (principal)
CPT/HCPCS: 36415; 80053; 83036

== ENCOUNTER → 2025-01-13 15:05 | Outpatient (CLI) | payer MEDICARE, MEDICAID, SELFPAY | LOC: LAB 15:07 | PROVIDERS: PCP Family Medicine; Visit Provider Urology | DX: R39.9 Unspecified symptoms and signs involving the genitourinary system (principal); R31.9 Hematuria, unspecified | CPT/HCPCS: 87086 ==

== ENCOUNTER → 2025-01-13 15:38 | Outpatient (CLI) | payer MEDICARE, MEDICAID, SELFPAY ==
--- NOTE | 2025-01-13 15:44 | DI.RAD.S_ITS ---
PROCEDURE: XR KUB INDICATIONS: Evaluate right-sided calculi TECHNIQUE: One view of the abdomen acquired. COMPARISON: [facility], CT, CT IVP A/P W/WO, 11/14/2024, 15:08. FINDINGS: Surgical changes and devices: None. Bowel: Bowel gas pattern is normal. Stool without obstruction. Soft tissues: Ill-defined calcifications the right renal shadow markedly obscured by overlying stool. Visualized solid organ contours appear normal in size. Bones: No suspicious bony lesions. IMPRESSION: Ill-defined calcifications overlying the right renal shadow not well seen secondary to overlying stool. Dictated by: Joan Lara M.D. on 01/13/2025 at 18:55 Approved by: Joan Lara M.D. on 01/13/2025 at 18:55
== END ==
PROVIDERS: PCP Family Medicine; Referring Provider Urology; Visit Provider Urology
DX: N20.0 Calculus of kidney (principal); R39.9 Unspecified symptoms and signs involving the genitourinary system; R31.9 Hematuria, unspecified; N28.89 Other specified disorders of kidney and ureter
CPT/HCPCS: 74018; 87086

== ENCOUNTER → 2025-02-05 10:15 | Outpatient (CLI) | payer MEDICARE, MEDICAID, SELFPAY ==
--- NOTE | 2025-02-05 10:17 | DI.RAD.S_ITS ---
PROCEDURE: XR KUB INDICATIONS: Kidney stone TECHNIQUE: One view of the abdomen acquired. COMPARISON: [facility], CT, CT IVP A/P W/WO, 11/14/2024, 15:08. [facility], CR, XR KUB, 01/13/2025, 15:44. FINDINGS: Surgical changes and devices: None. Bowel: Bowel gas pattern is normal. Soft tissues: No suspicious abdominal calcifications. Visualized solid organ contours appear normal in size. Bones: No suspicious bony lesions. IMPRESSION: Right renal stone not identified, possibly scared by overlying bowel gas. Dictated by: Neymar Hammonds M.D. on 02/05/2025 at 16:46 Approved by: Neymar Hammonds M.D. on 02/05/2025 at 16:49
== END ==
PROVIDERS: PCP Family Medicine; Referring Provider Urology; Visit Provider Urology
DX: N20.0 Calculus of kidney (principal)
CPT/HCPCS: 74018

== ENCOUNTER → 2025-02-26 11:58 | Outpatient (CLI) | payer MEDICARE, SELFPAY ==
[2025-02-27 05:36] LABS: Valproic Acid (Depakene) Total 66 ug/mL (50-100)
== END ==
PROVIDERS: PCP Family Medicine; Referring Provider Student in an Organized Health Care Education/Training Program; Visit Provider Student in an Organized Health Care Education/Training Program
DX: Z51.81 Encounter for therapeutic drug level monitoring (principal)
CPT/HCPCS: 36415; 80164

== ENCOUNTER 2025-03-19 12:33 | Emergency (ER) | payer MEDICARE, SELFPAY ==
[2025-03-19 12:44] VITALS: BP 111/61; PULSE 81; RESP 16; TEMP 36.9; O2SAT 97; BMI 27.7
[2025-03-19 13:14] LABS: Culture Indicated Urine Specimen Cultured
--- NOTE | 2025-03-19 13:26 | ED.GENADULT ---
HPI - General Adult General Chief complaint: Urogenital-Male Stated complaint: bloody urine on and off since sunday Time Seen by Provider: 03/19/25 13:12 Source: patient Mode of arrival: Ambulatory History of Present Illness HPI narrative: 34-year-old gentleman with a history of type 2 diabetes, hypertension, hyperlipidemia, schizoaffective disorder bipolar type, prior kidney stones urinary tract infections and pyelonephritis presents with 4 days of waxing waning right-sided abdominal pain. Initially was mild pain with a brief episode of hematuria seemed to resolve. He has had minimal episodes of pain in the interval but today significantly increasing pain in the right lower quadrant worse with positioning no longer resolving with pain increasing over the course of today. Again had hematuria today. No fevers, he has been having normal bowel movements, no chest pain or palpitation Related Data Home Medications ?Medication ?Instructions ?Recorded ?Confirmed cyanocobalamin (vitamin B-12) 1,000 mcg PO DAILY 07/24/18 02/25/25 1,000 mcg tablet (Vitamin B-12) diphenhydramine HCl 25 mg capsule 50 mg PO PRN PRN dystonia/catonia 07/24/18 02/25/25 magnesium citrate 400 mg PO QPM 07/24/18 02/25/25 omega 8-kpi-kzk-fish oil 1,000 mg 2,000 mg PO BID 07/24/18 02/25/25 (120 mg-180 mg) capsule (Fish Oil) lancets 33 gauge (BD Ultra Fine #100 ea 05/07/20 01/13/25 Lancets) melatonin 5 mg tablet 5 mg PO BEDTIME PRN 03/07/21 02/25/25 tirzepatide 7.5 mg/0.5 mL mg SUBCUT 01/09/25 02/25/25 subcutaneous pen injector (Mounjaro) losartan 25 mg tablet 25 mg PO DAILY 02/25/25 02/25/25 Previous Rx's ?Medication ?Instructions ?Recorded blood-glucose meter #1 ea 12/20/20 lancets 33 gauge (BD Ultra Fine #100 ea 12/20/20 Lancets) blood sugar diagnostic (Blood #100 ea 06/21/23 Glucose Test strips) flash glucose sensor (FreeStyle #1 ea 09/28/23 Alyssa 2 Sensor kit) blood-glucose,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,cont #1 ea 11/23/23 (FreeStyle Alyssa 3 [place]) pioglitazone 15 mg tablet (Actos) 15 mg PO DAILY #90 tabs 12/08/24 metformin 1,000 mg tablet See Rx Instructions .Route 01/05/25 .COMPLEX #180 tabs blood-glucose sensor (FreeStyle #3 ea 01/26/25 Alyssa 3 Plus Sensor device) aripiprazole 5 mg tablet 5 mg PO DAILY #90 tabs 02/25/25 benztropine 1 mg tablet 1 mg PO BID #180 tabs 02/25/25 divalproex 500 mg tablet,extended 1,500 mg (3 x 500 mg) PO BID #540 02/25/25 release 24 hr (Depakote ER) tabs lorazepam 1 mg tablet 1 mg PO PRN PRN dystonia/catonia 02/25/25 #30 tabs quetiapine 25 mg tablet 75 mg (3 x 25 mg) PO QPM #270 tabs 02/25/25 sertraline 25 mg tablet 25 mg PO DAILY #90 tabs 02/25/25 fenofibrate nanocrystallized 145 145 mg PO DAILY #90 tabs 03/09/25 mg tablet Allergies Allergy/AdvReac Type Severity Reaction Status Date / Time Penicillins (PENICILLINS) Allergy Severe rash Verified 01/09/25 14:06 Sulfa (Sulfonamide Allergy Severe bones itch Verified 01/09/25 14:06 Antibiotics) (SULFA (SULFONAMIDE ANTIBIOTICS)) ziprasidone (ZIPRASIDONE) AdvReac Severe locked Verified 01/09/25 14:06 muscles, hypotension Review of Systems Review of Systems Narrative: Pertinent positive and negative findings as per HPI Patient History Medical History History of autism spectrum disorder Bilateral kidney stones Right renal stone Hypertension History of nephrolithiasis Diabetic kidney disease Dysuria Well adult exam Depression Schizoaffective disorder, bipolar type Hypertriglyceridemia Type 2 diabetes mellitus No pertinent family history Aspergers' syndrome ADHD OCD (obsessive compulsive disorder) Dystonia Surgical History No pertinent past surgical history Family History Grandfather CVA (cerebral vascular accident) Diabetes mellitus Hyperlipidemia Hypertension Grandmother CVA (cerebral vascular accident) Evaluation of hearing impairment Hyperlipidemia Hypertension Thyroid disorder UTI (urinary tract infection), uncomplicated Father Diabetes mellitus Social History marital status: unmarried,single household members: family Smoking Status: Never smoker alcohol intake: current substance use type: does not use caffeine: No Type(s) of exercise: none Smoking Status: Never smoker alcohol intake frequency: holidays/special occasions only Exam Initial Vital Signs Initial Vital Signs: Vital Signs Temperature 98.5 F 03/19/25 12:44 Pulse Rate 81 03/19/25 12:44 Respiratory Rate 16 03/19/25 12:44 Blood Pressure 111/61 03/19/25 12:44 Pulse Oximetry 97 03/19/25 12:44 Oxygen Delivery Method Room Air 03/19/25 12:44 General: Healthy appearing, in no acute distress. Able to give a complete and coherent history. Well-nourished well-developed HEENT: Moist mucous membranes, normal sclera with reactive pupils, Respiratory: Lungs are clear to auscultation, no wheezing no rales no rhonchi. Full and symmetrical air movement Cardiac: Regular rate and rhythm no murmurs no bruits Abdomen: Soft, tender in the right lower quadrant without rebound or guarding. He does not have flank pain. There was no pain radiating into the groin or scrotum Skin: Warm and dry, no rashes Neurologic: Grossly neurologically intact with no obvious asymmetries or abnormalities Extremities: No trauma, well perfused Psych: Cooperative, somewhat flat otherwise completely appropriate Course Orders Ordered: ED Orders 03/19/25 12:48 Urinalysis and Microscopic Stat 03/19/25 12:50 Urine Culture Stat Urine Microscopic Stat 03/19/25 13:37 CT kidney ureter bladder (KUB) Stat 03/19/25 14:55 Complete Blood Count AUTO DIFF Stat Comprehensive Metabolic Panel Stat Lactate (Lactic Acid) Stat Lipase Stat Hydromorphone HCl (Hydromorphone Hcl 0.5 Mg/0.5 Ml Syringe) 0.5 mg IV Q15MIN PRN PRN Reason: Pain, Ondansetron HCl (Ondansetron 4 Mg/2 Ml Inj) 4 mg IV NOW PRN PRN Reason: nausea Discontinued Medications Sodium Chloride (Normal Saline 0.9%) 1,000 mls @ 1,000 mls/hr IV BOLUS ONE Stop: 03/19/25 14:36 Last Admin: 03/19/25 15:02 Dose: 1,000 mls/hr Documented By: CHRIS Ketorolac Tromethamine (Ketorolac 30 Mg/Ml Vial) 15 mg IV NOW ONE Stop: 03/19/25 13:38 Last Admin: 03/19/25 15:01 Dose: 15 mg Documented By: CHRIS Vital Signs Vital signs: Vital Signs - 8 hr 03/19/25 12:44 Temperature 98.5 F Pulse Rate 81 Respiratory Rate 16 Blood Pressure 111/61 Pulse Oximetry 97 Oxygen Delivery Method Room Air Medical Decision Making Lab Data 03/19/25 14:55 03/19/25 14:55 Labs: Lab Results 03/19/25 03/19/25 Range/Units 12:50 14:55 WBC 4.1 L (4.5-11.0) X10^3/uL RBC 4.29 L (4.5-5.9) X10^6/uL Hgb 12.9 L (13.5-17.5) g/dL Hct 36.0 L (41-53) % MCV 84.0 (80-100) fL MCH 30.0 (26-34) PG MCHC 35.7 (30-36) % RDW 13.4 (11.6-14.8) % Plt Count 165 (150-400) X10^3/uL Neut % (Auto) 46.0 L (50-75) % Lymph % (Auto) 43.7 H (25-40) % Jack % (Auto) 7.4 (3-14) % Eos % (Auto) 2.0 (2-4) % Baso % (Auto) 0.9 (0-2) % Neut # (Auto) 1900 (6731-6123) /uL Lymph # (Auto) 1800 (3929-3157) /uL Jack # (Auto) 300 (0-900) /uL Eos # (Auto) 100 (0-450) /uL Baso # (Auto) 0 (0-100) /uL Sodium 138 (137-145) mmol/L Potassium 4.2 (3.4-5.1) mmol/L Chloride 105 (98-107) mmol/L Carbon Dioxide 27 (22-32) mmol/L BUN 16 (9-20) mg/dL Creatinine 0.73 (0.66-1.25) mg/dL Estimated GFR > 60 (>60) mL/min BUN/Creatinine Ratio 21.9 (6-22) Glucose 120 H (70-99) mg/dL Lactate 1.4 (0.7-2.1) mmol/L Calcium 10.3 H (8.4-10.2) mg/dL Total Bilirubin 0.6 (0.2-1.3) mg/dL AST 49 (17-59) IU/L ALT 31 (<50) IU/L Alkaline Phosphatase 38 (38-126) U/L Total Protein 6.7 (6.3-8.2) g/dL Albumin 4.5 (3.5-5.0) g/dL Globulin 2.2 (1.7-4.1) g/dL Albumin/Globulin Ratio 2.0 (1.0-2.8) Lipase 148 (23-300) U/L Urine RBC 10-30/hpf H (0-5/HPF) Urine WBC 5-10/hpf H (0-5/HPF) Ur Squamous Epith Cells None seen (0-5/HPF) Urine Bacteria None seen (None) Ur Culture Indicated? Specimen cultured Vol Urine Centrifuged 20 Urine Dip Bedside Urine Glucose 500 mg/dl Bedside Urine Bilirubin - Negative Bedside Urine Ketone - Negative Urine Specific [place] 1.015 Bedside Urine Occult Blood +++ Bedside Urine pH 6 Bedside Urine Protein +/- 15 Bedside Urine Urobilinogen - Negative Bedside Urine Nitrite - Negative Bedside Urine Leukocytes ++ 125 Esterase Point of care testing: Urine Dip Bedside Urine Glucose 500 mg/dl Bedside Urine Bilirubin - Negative Bedside Urine Ketone - Negative Urine Specific [place] 1.015 Bedside Urine Occult Blood +++ Bedside Urine pH 6 Bedside Urine Protein +/- 15 Bedside Urine Urobilinogen - Negative Bedside Urine Nitrite - Negative Bedside Urine Leukocytes ++ [address] scan - abdomen/pelvis: Radiologist's Impression: PROCEDURE: CT KIDNEY URETER BLADDER (KUB) INDICATIONS: Right lower quadrant pain TECHNIQUE: CT of the abdomen and pelvis was obtained without intravenous contrast. Coronal and sagittal reformats were performed. For radiation dose reduction, the following was used: automated exposure control, adjustment of mA and/or kV according to patient size. COMPARISON: None. FINDINGS: Image quality: Diagnostic. Lower Chest: No significant findings. ABDOMEN: Liver: No contour-deforming mass. Gallbladder: No radiopaque gallstones or wall thickening. Biliary ducts: No biliary dilation. Pancreas: No ductal dilation. Spleen: Size is within normal limits. Adrenal Glands: No adrenal nodules. Kidneys and Ureters: No hydronephrosis. No contour-deforming mass. There is a nonobstructing right-sided kidney stone seen within the right renal pelvis measuring 18 mm and 1200 Hounsfield units. Additional tiny nonobstructing stones can be seen elsewhere within each kidney. Stomach and Bowel: A normal appendix is noted. There is focal wall thickening with surrounding inflammatory change involving the ascending colon. The terminal ileum is within normal limits. Colonic diverticulosis is seen, without findings of active diverticulitis. No dilated loops of small bowel are seen. Peritoneum: No peritoneal abscess is seen. No abnormal intraperitoneal fluid. No free air. Ventral Wall: A mild periumbilical hernia is seen, containing fat. Abdominal Nodes: No retroperitoneal or mesenteric adenopathy by size criteria. Vessels: Aorta and inferior vena cava are normal in size. PELVIS: Pelvic Organs: Unremarkable. Bladder: Unremarkable. Pelvic Nodes: No enlarged lymph nodes. Miscellaneous: No inguinal hernias are seen. Bones: No aggressive osseous abnormality. IMPRESSION: Normal appendix. Focal colitis seen involving the ascending colon. No findings of perforation or abscess can be seen. There is a nonobstructing stone seen within the right renal pelvis, with additional tiny nonobstructing stone seen elsewhere within the kidneys. Dictated by: Neto Machado M.D. on 03/19/2025 at 13:08 MDM Narrative Medical decision making narrative: CC: Right lower quadrant/flank pain intermittently for the last 4 days Complicating co-morbidities: Known prior kidney stones, prior pyelonephritis. History of hypertension, diabetes, hyperlipidemia, Asperger's as well as schizoaffective disorder Data collected from: patient Medical records reviewed: Primary care notes reviewed Differential considered: Kidney stone, pyelonephritis, constipation, appendicitis Exam documented above, pertinent findings include: Tenderness in the right lower quadrant without rebound or guarding. No flank pain. Remainder of exam is benign Lab Test results independently reviewed as above. Pertinent findings: CBC is minimally remarkable Chemistries show normal renal function minimally elevated calcium Imaging studies independently reviewed: CT scan of the abdomen shows colitis of the ascending colon without pyelonephritis, ureterolithiasis, hydronephrosis or appendicitis Treatments: Zofran, Toradol and fluid Discussion: 34-year-old gentleman comes in with intermittent right-sided abdominal pain for the last week with a couple of episodes of hematuria. He has a known kidney stone. He was concerned with the pain and overall presentation. There is no sign at this time of obstructing ureterolithiasis or hydronephrosis, no bladder infection, urine has been cultured, no pyelonephritis. Is appendix appears normal. CT scan does demonstrate an ascending colitis. We talked about typically self limited nature of this but why he could expect pain waxing and waning over the course of the week. I do not have a complete understanding for the acute hematuria but he does have a stone in the kidney that is not obstructing that may be contributing. All of these details were reviewed with the patient. He is significantly relieved. Did not feel that narcotic medication would be required and he will be comfortable with discharge home. There was no indication for further workup or hospitalization. Discharge Plan Departure Patient Disposition: Home Clinical Impression: Colitis, Right renal stone Instructions: DI for Colitis Activity Restrictions/Additional Instructions: Thank you for coming in today The CT scan shows that you have in some inflammation in your colon on the right side. This is called colitis and typically is going to resolve without any additional treatment. You do not have diverticulitis, appendicitis, bladder infection or kidney infection. You do have an 18 mm non obstructing stone in the right kidney. This may be the source of the blood you are seeing in your urine but it is not currently blocking anything and does not appear to be currently infected. Please review this with your urologist. 18 mm is quite large and typically going to be too large to pass without some type of surgical intervention. In the meantime, using 400 mg of ibuprofen (2 unrd-vxn-[id number] pills) and 1 Tylenol every 6 hours can be very helpful in controlling pain. If you find that you are getting worse, develop fevers or new symptoms please return to the ER Prescriptions: No Action losartan 25 mg tablet 25 mg PO DAILY aripiprazole 5 mg tablet 5 mg PO DAILY Qty: 90 1RF quetiapine 25 mg tablet 75 mg PO QPM Qty: 270 0RF benztropine 1 mg tablet 1 mg PO BID Qty: 180 1RF lorazepam 1 mg tablet 1 mg PO PRN PRN (Reason: dystonia/catonia) Qty: 30 0RF divalproex [Depakote ER] 500 mg tablet extended release 24 hr 1,500 mg PO BID Qty: 540 1RF sertraline 25 mg tablet 25 mg PO DAILY Qty: 90 1RF (DME) blood-glucose meter Misc See Rx Instructions .ROUTE .MEDSUPPLY Qty: 1 0RF Rx Instructions: Use to test blood glucose BID (DME) lancets [BD Ultra Fine Lancets] 33 gauge misc See Rx Instructions .ROUTE .MEDSUPPLY Qty: 100 6RF Rx Instructions: Use to test blood glucose twice daily (DME) Blood Glucose Test Strip See Rx Instructions .ROUTE .MEDSUPPLY Qty: 100 6RF Rx Instructions: Use to test blood glucose twice daily. (DME) FreeStyle Alyssa 2 Sensor Kit See Rx Instructions .ROUTE .COMPLEX Qty: 1 3RF Dose Instruction: USE DIRECTED. CHANGE EVERY 14 DAYS. Rx Instructions: USE DIRECTED. CHANGE EVERY 14 DAYS. pioglitazone [Actos] 15 mg tablet 15 mg PO DAILY Qty: 90 1RF metformin 1,000 mg tablet See Rx Instructions .ROUTE .COMPLEX Qty: 180 0RF Dose Instruction: TAKE ONE TABLET BY MOUTH TWICE DAILY Rx Instructions: TAKE ONE TABLET BY MOUTH TWICE DAILY (DME) FreeStyle Alyssa 3 Plus Sensor Device See Rx Instructions .Route Qty: 3 3RF Rx Instructions: change every 15 days as directed by package insert for cont monitoring of blood glucose fenofibrate nanocrystallized 145 mg tablet 145 mg PO DAILY Qty: 90 0RF (DME) lancets [BD Ultra Fine Lancets] 33 gauge misc See Rx Instructions .ROUTE .MEDSUPPLY Qty: 100 Rx Instructions: As directed melatonin 5 mg tablet 5 mg PO BEDTIME PRN (DME) FreeStyle Alyssa 3 [place] Misc See Rx Instructions .Route Qty: 1 0RF Rx Instructions: use to continuously read blood sugars Mounjaro 7.5 mg/0.5 mL pen injector SUBCUT Patient Comments: [NO ORIGINAL SIG] cyanocobalamin (vitamin B-12) [Vitamin B-12] 1,000 mcg Tablet 1,000 mcg PO DAILY diphenhydramine HCl 25 mg Capsule 50 mg PO PRN PRN (Reason: dystonia/catonia) Patient Comments: when symptoms begin omega 2-iup-nui-fish oil [Fish Oil] 1,000 mg (120 mg-180 mg) Capsule 2,000 mg PO BID magnesium citrate 400 mg 400 mg PO QPM Referrals: Vernon Cornell DO [Primary Care Provider, [facility]] Stand Alone Forms: Patient Portal/API
--- NOTE | 2025-03-19 13:37 | DI.CT.S_ITS ---
PROCEDURE: CT KIDNEY URETER BLADDER (KUB) INDICATIONS: Right lower quadrant pain TECHNIQUE: CT of the abdomen and pelvis was obtained without intravenous contrast. Coronal and sagittal reformats were performed. For radiation dose reduction, the following was used: automated exposure control, adjustment of mA and/or kV according to patient size. COMPARISON: None. FINDINGS: Image quality: Diagnostic. Lower Chest: No significant findings. ABDOMEN: Liver: No contour-deforming mass. Gallbladder: No radiopaque gallstones or wall thickening. Biliary ducts: No biliary dilation. Pancreas: No ductal dilation. Spleen: Size is within normal limits. Adrenal Glands: No adrenal nodules. Kidneys and Ureters: No hydronephrosis. No contour-deforming mass. There is a nonobstructing right-sided kidney stone seen within the right renal pelvis measuring 18 mm and 1200 Hounsfield units. Additional tiny nonobstructing stones can be seen elsewhere within each kidney. Stomach and Bowel: A normal appendix is noted. There is focal wall thickening with surrounding inflammatory change involving the ascending colon. The terminal ileum is within normal limits. Colonic diverticulosis is seen, without findings of active diverticulitis. No dilated loops of small bowel are seen. Peritoneum: No peritoneal abscess is seen. No abnormal intraperitoneal fluid. No free air. Ventral Wall: A mild periumbilical hernia is seen, containing fat. Abdominal Nodes: No retroperitoneal or mesenteric adenopathy by size criteria. Vessels: Aorta and inferior vena cava are normal in size. PELVIS: Pelvic Organs: Unremarkable. Bladder: Unremarkable. Pelvic Nodes: No enlarged lymph nodes. Miscellaneous: No inguinal hernias are seen. Bones: No aggressive osseous abnormality. IMPRESSION: Normal appendix. Focal colitis seen involving the ascending colon. No findings of perforation or abscess can be seen. There is a nonobstructing stone seen within the right renal pelvis, with additional tiny nonobstructing stone seen elsewhere within the kidneys. Dictated by: Neto Machado M.D. on 03/19/2025 at 13:08 Approved by: Neto Machado M.D. on 03/19/2025 at 13:11
[2025-03-19] MEDS: KETOROLAC 30 MG/ML VIAL 15 MG IV (15:01)
[2025-03-19] MEDS: SODIUM CHLORIDE 0.9% 1,000 ML 1000 ML IV (15:02)
[2025-03-19 15:05] LABS: Add Manual Diff / Slide Review NO; Hematocrit 36.0 % (41-53); Hemoglobin 12.9 g/dL (13.5-17.5); Lymphocytes Absolute Auto 1800 /uL (1100-4500); Mean Corpuscular HGB Conc 35.7 % (30-36); Mean Corpuscular Hemoglobin 30.0 PG (26-34); Mean Corpuscular Volume 84.0 fL (80-100); Platelet Count 165 X10^3/uL (150-400)
[2025-03-19 15:23] LABS: Alanine Aminotransferase 31 IU/L (<50); Albumin 4.5 g/dL (3.5-5.0); Albumin Globulin Ratio 2.0 (1.0-2.8); Alkaline Phosphatase 38 U/L (38-126); Blood Urea Nitrogen 16 mg/dL (9-20); Calcium 10.3 mg/dL (8.4-10.2); Carbon Dioxide 27 mmol/L (22-32); Chloride 105 mmol/L (98-107); Estimated Glomerular Filt Rate > 60 mL/min (>60); Globulin 2.2 g/dL (1.7-4.1); Glucose 120 mg/dL (70-99); HEMOLYSIS 16 (0-50); Lactate (Lactic Acid) 1.4 mmol/L (0.7-2.1); Lipase 148 U/L (23-300); Potassium 4.2 mmol/L (3.4-5.1); Sodium 138 mmol/L (137-145); Total Protein 6.7 g/dL (6.3-8.2)
[2025-03-19 17:10] VITALS: BP 113/62; PULSE 79; RESP 14; O2SAT 98
== END 2025-03-19 17:12 | disposition home or self-care (01) ==
PROVIDERS: Emergency Provider Emergency Medicine; PCP Family Medicine
DX: K52.9 Noninfective gastroenteritis and colitis, unspecified (principal); N20.0 Calculus of kidney; R31.9 Hematuria, unspecified; R10.31 Right lower quadrant pain
CPT/HCPCS: 36415; 74176; 80053; 81003; 81015; 83605; 83690; 85025; 87086; 96374; 99284; J1885

== ENCOUNTER → 2025-03-23 15:48 | Outpatient (CLI) | payer MEDICARE, SELFPAY | PROVIDERS: PCP Family Medicine; Visit Provider Urology | DX: N20.1 Calculus of ureter (principal); R30.0 Dysuria; F84.0 Autistic disorder; Z68.27 Body mass index [BMI] 27.0-27.9, adult | CPT/HCPCS: 81002; 87086; 99214 ==

== ENCOUNTER 2025-03-31 10:48 | Day surgery (SDC) | payer MEDICARE, SELFPAY ==
[2025-03-25 12:20] VITALS: BMI 27.7
[2025-03-31] VITALS (7 sets, daily range): BP systolic 100–140; BP diastolic 66–79; PULSE 71–97; RESP 16–22; TEMP 36.3–36.8; O2SAT 95–98; BMI 26.9
--- NOTE | 2025-03-31 | DI.RAD.S_ITS ---
PROCEDURE: XR ABDOMEN 1V INDICATIONS: RT STENT PLACEMENT TECHNIQUE: 3 intra-operative images acquired by the Urology service. COMPARISON: None. FINDINGS: Right double pigtail ureteral stent in place. Proximal end overlies the renal pelvis and the distal end overlies the expected location of the urinary bladder. There is contrast in the right upper collecting system which is grossly normal. IMPRESSION: Right ureteral stent in expected location Dictated by: Eugenio Childs M.D. on 04/01/2025 at 10:55 Approved by: Eugenio Childs M.D. on 04/01/2025 at 10:56
[2025-03-31] MEDS: LACTATED RINGERS 1,000 ML 42 ML IV (11:34)
[2025-03-31] MEDS: ACETAMINOPHEN 325 MG TABLET 975 MG PO (11:34)
--- NOTE | 2025-03-31 12:21 | PM.PREOP ---
Pre-operative Note COVID-19 COVID-19 status: Not tested Interval Note History & Physical reviewed/Exam performed by Physician: Yes Changes to H&P: No
[2025-03-31] MEDS: levoFLOXacin 500 MG/100 ML PIGGYBACK 100 MG IV (12:50)
--- NOTE | 2025-03-31 13:09 | SUR.OPER ---
Lithotomy on padded OR bed, head on pillow, arms secured on padded arm boards at <90 degrees abduction. Legs secured in padded yellow fins stirrups. Dr. Lenz in room at time of positioning to approve final position. All pressure points padded and protected.
[2025-03-31] MEDS: LACTATED RINGERS 1,000 ML 21 ML IV (13:10)
--- NOTE | 2025-03-31 14:15 | PM.OP.1 ---
Operative Date/Time/Diagnoses Date of procedure: 03/31/25 Time of procedure: 13:00 Pre-op diagnosis: Right ureteral calculus Post-op diagnosis: same Procedure & Clinicians Procedure: Cystoscopy Right retrograde ureteropyelogram Right ureteroscopy, laser lithotripsy Right ureteral stent placement Intraoperative interpretation of fluoroscopic images, total time < 1 hour Same procedure(s) as scheduled: Yes Indications: 34 y/o M w/ an extensive h/o nephrolithiasis noted to have an 18mm right UPJ calculus. Discussed treatment options to include continued observation vs cystoscopy, ureteroscopy, laser lithotripsy with ureteral stent placement. Discussed risks of the procedure to include but not limited to pain, bleeding, infection, injury to urethra/bladder/ureter, inability to access the ureter requiring discussion with Interventional Radiology regarding a possible ureteral stent placement in an antegrade fashion vs a possible nephroureteral stent and/or percutaneous nephrostomy tube, urinary tract infection, inability to remove all of the stone in one setting, need for emergent open repair of bladder and/or ureter, need for multiple ureteroscopic interventions necessary to render the patient stone free. Surgeon: Philipp Lenz Click Yes if Unassisted: Yes Anesthesia Type: General Operative Notes Findings: Large right UPJ calculus Closure Type: not applicable Specimen(s): none sent Applied: none Estimated Blood Loss (mL): 2 Blood products transfused: none Procedure in detail: Procedures: 1) Cystoscopy 2) Right retrograde ureteropyelogram 3) Right ureteroscopy, laser lithotripsy 4) Right ureteral stent placement 5) Intraoperative interpretation of fluoroscopic images, < 1 hour, all images saved to PACS Indication: Patient was identified in the preoperative holding area and consent confirmed. He was then brought to the operating room where general anesthesia was induced.? He was placed in the low lithotomy position. He was then prepped and draped in the usual sterile fashion. A surgical timeout was conducted and all were in agreement. ?Access to the bladder was obtained via a 30 degree cystoscope.? Complete cystoscopy was then performed and no concerning bladder masses or lesions were appreciated.? Bilateral ureteral orifices were easily identified and noted to be orthotopic in nature.? The right ureteral orifice was then cannulated using a 5Fr ureteral catheter over a 0.035 sensor tip ureteral guidewire. The ureteral catheter was removed and a 12/14Fr ureteral access sheath was then advanced over the ureteral guidewire and into the proximal right ureter.? The ureteral guidewire and inner obturator were then removed.? The flexible ureteroscope was then advanced through the ureteral access sheath and to the level of the right UPJ where a large stone was visualized (it had a white film around it concerning for a bacterial biofilm).? Complete pyeloscopy was then performed and no other nephroliths were appreciated.? Laser lithotripsy was then performed utilizing the 200 micron laser fiber.? After lasering for more than 45 minutes, visibility became very poor and the decision was made to return for a second look ureteroscopy due to the poor visibility and concern for a possibly infected stone. The stone basket was utilized to remove as much of the aforementioned white film as possible. A retrograde pyelogram was then performed which noted no contrast extravasation. The ureteral guidewire was then readvanced through the ureteroscope and into the right renal pelvis.? The ureter was then directly visualized upon removal of the ureteroscope and ureteral access sheath and noted to be stone free.? The cystoscope was then backloaded over the ureteral guidewire and advanced into the bladder.? A 6Fr multi-length JJ ureteral stent without strings was then advanced over the ureteral guidewire.? Upon removal of the guidewire, a good curl was noted within the right renal pelvis upon fluoroscopy and visually within the bladder.? The bladder was then drained and the cystoscope was removed.? Anesthesia was reversed, he was extubated in the OR and transferred to the PACU in stable condition for recovery. Complications: none Post-operative Condition: stable Disposition: PACU Plan for aftercare: Discharge home from PACU. Will return to OR in 2-12 weeks for a repeat cystoscopy, right ureteroscopy, laser lithotripsy and right ureteral stent exchange.
== END 2025-03-31 15:08 | disposition home or self-care (01) ==
PROVIDERS: PCP Family Medicine; Referring Provider Urology; Visit Provider Urology
PROC: (CPT 52356; principal; 2025-03-31 12:15)
DX: N20.1 Calculus of ureter (principal)
CPT/HCPCS: 52356; 74018; 74420; 76000; 82962; C2617; J0330; J1100; J1956; J2250; J2405; J2704; J3010; Q9967

== ENCOUNTER 2025-04-04 16:40 | Emergency (ER) | payer MEDICARE, SELFPAY ==
[2025-04-04] VITALS (7 sets, daily range): BP systolic 116–132; BP diastolic 75–87; PULSE 86–94; RESP 16–20; TEMP 37.1; O2SAT 98–100; BMI 27.7
[2025-04-04] MEDS: ONDANSETRON 4 MG/2 ML INJ IV (17:23)
[2025-04-04] MEDS: SODIUM CHLORIDE 0.9% 1,000 ML 1000 ML IV ×2 (17:27→18:56)
[2025-04-04 17:42] LABS: Add Manual Diff / Slide Review NO; Hematocrit 40.3 % (41-53); Hemoglobin 14.2 g/dL (13.5-17.5); Lymphocytes Absolute Auto 1600 /uL (1100-4500); Mean Corpuscular HGB Conc 35.1 % (30-36); Mean Corpuscular Hemoglobin 29.2 PG (26-34); Mean Corpuscular Volume 83.1 fL (80-100); Platelet Count 171 X10^3/uL (150-400)
[2025-04-04 17:45] LABS: Alanine Aminotransferase 25 IU/L (<50); Albumin 5.1 g/dL (3.5-5.0); Albumin Globulin Ratio 1.9 (1.0-2.8); Alkaline Phosphatase 34 U/L (38-126); Blood Urea Nitrogen 21 mg/dL (9-20); Calcium 10.7 mg/dL (8.4-10.2); Carbon Dioxide 25 mmol/L (22-32); Chloride 100 mmol/L (98-107); Estimated Glomerular Filt Rate > 60 mL/min (>60); Globulin 2.7 g/dL (1.7-4.1); Glucose 128 mg/dL (70-99); HEMOLYSIS 24 (0-50); Lipase 69 U/L (23-300); Potassium 4.1 mmol/L (3.4-5.1); Sodium 139 mmol/L (137-145); Total Protein 7.8 g/dL (6.3-8.2)
--- NOTE | 2025-04-04 18:10 | ED.ABDPAIN ---
HPI - Abdominal Pain General Chief Complaint: Abdominal Pain Stated Complaint: Unable to keep fluids down/trouble urinating Time Seen by Provider: 04/04/25 17:35 Source: patient Mode of arrival: Ambulatory History of Present Illness HPI narrative: Patient is a 34-year-old male with a past medical history of hypertension, diabetes, hyperlipidemia, comes into the ED from home for multiple complaints, states that he has been nauseous having difficulty urinating states that the pain is to his right lower quadrant, states he does have a history of kidney stones, states that he did have stents placed on Sunday, since then he has been having pain/nausea and vomiting. Did take Tylenol ibuprofen prior to arrival for pain but this is not help. Review of records does show that patient follows with Dr. Lenz (of Urology) Related Data Home Medications ?Medication ?Instructions ?Recorded ?Confirmed cyanocobalamin (vitamin B-12) 1,000 mcg PO DAILY 07/24/18 03/31/25 1,000 mcg tablet (Vitamin B-12) diphenhydramine HCl 25 mg capsule 50 mg PO PRN PRN dystonia/catonia 07/24/18 03/31/25 magnesium citrate 400 mg PO QPM 07/24/18 03/31/25 omega 0-eal-cky-fish oil 1,000 mg 2,000 mg PO BID 07/24/18 03/31/25 (120 mg-180 mg) capsule (Fish Oil) lancets 33 gauge (BD Ultra Fine #100 ea 05/07/20 03/23/25 Lancets) melatonin 5 mg tablet 5 mg PO BEDTIME PRN insomnia 03/07/21 03/31/25 tirzepatide 7.5 mg/0.5 mL 7.5 mg SUBCUT WEEKLY 01/09/25 03/30/25 subcutaneous pen injector (Mounjaro) losartan 25 mg tablet 25 mg PO DAILY 02/25/25 03/31/25 divalproex 500 mg tablet,extended 1,500 mg PO BEDTIME 03/30/25 03/31/25 release 24 hr (Depakote ER) Previous Rx's ?Medication ?Instructions ?Recorded blood-glucose meter #1 ea 12/20/20 lancets 33 gauge (BD Ultra Fine #100 ea 12/20/20 Lancets) blood sugar diagnostic (Blood #100 ea 06/21/23 Glucose Test strips) flash glucose sensor (FreeStyle #1 ea 09/28/23 Alyssa 2 Sensor kit) blood-glucose,community health nursing director,cont #1 ea 11/23/23 (FreeStyle Alyssa 3 [place]) pioglitazone 15 mg tablet (Actos) 15 mg PO DAILY #90 tabs 12/08/24 blood-glucose sensor (FreeStyle #3 ea 01/26/25 Alyssa 3 Plus Sensor device) aripiprazole 5 mg tablet 5 mg PO DAILY #90 tabs 02/25/25 benztropine 1 mg tablet 1 mg PO BID #180 tabs 02/25/25 lorazepam 1 mg tablet 1 mg PO PRN PRN dystonia/catonia 02/25/25 #30 tabs quetiapine 25 mg tablet 75 mg (3 x 25 mg) PO QPM #270 tabs 02/25/25 sertraline 25 mg tablet 25 mg PO DAILY #90 tabs 02/25/25 fenofibrate nanocrystallized 145 145 mg PO DAILY #90 tabs 03/09/25 mg tablet metformin 1,000 mg tablet 1,000 mg PO BID #180 tabs 03/30/25 levofloxacin 500 mg tablet 500 mg PO DAILY #5 tabs 03/31/25 oxycodone 5 mg tablet 5 mg PO Q8H PRN pain (scale score 03/31/25 7-10) #7 tabs ondansetron 4 mg disintegrating 4 mg PO Q8H PRN nausea and 04/04/25 tablet vomiting 7 days #21 tabs Allergies Allergy/AdvReac Type Severity Reaction Status Date / Time Penicillins (PENICILLINS) Allergy Severe rash Verified 04/04/25 16:58 Sulfa (Sulfonamide Allergy Severe bones itch Verified 04/04/25 16:58 Antibiotics) (SULFA (SULFONAMIDE ANTIBIOTICS)) ziprasidone (ZIPRASIDONE) AdvReac Severe locked Verified 04/04/25 16:58 muscles, hypotension Review of Systems Review of Systems Narrative: General: Denies fever, chills, weight loss HEENT: Denies headache, eye drainage, eye irritation, head trauma, sore throat, voice change Cardiovascular: Denies any chest pain, palpitations, tachycardia Respiratory: Denies any shortness of breath, cough, wheeze, stridor GI/: Positive abdominal pain, nausea, vomiting, urinary hesitancy denies diarrhea, bright red blood per rectum, melanotic stools, urinary frequency, dysuria, hematuria MSK: Denies any joint pain, muscle pains, swelling Skin: Denies any rashes, lesions, discoloration Neuro: Denies any headache, lightheadedness, dizziness, fainting, weakness Psych: Denies SI/HI Patient History Medical History (Updated 04/04/25 @ 19:12 by Romel Pandey DO) Sleep apnea with use of continuous positive airway pressure (CPAP) History of autism spectrum disorder Bilateral kidney stones Right renal stone Hypertension History of nephrolithiasis Diabetic kidney disease Dysuria Well adult exam Depression Schizoaffective disorder, bipolar type Hypertriglyceridemia Type 2 diabetes mellitus No pertinent family history Aspergers' syndrome ADHD OCD (obsessive compulsive disorder) Dystonia Surgical History No pertinent past surgical history Family History Grandfather CVA (cerebral vascular accident) Diabetes mellitus Hyperlipidemia Hypertension Grandmother CVA (cerebral vascular accident) Evaluation of hearing impairment Hyperlipidemia Hypertension Thyroid disorder UTI (urinary tract infection), uncomplicated Father Diabetes mellitus Social History marital status: unmarried,single household members: family Smoking Status: Never smoker alcohol intake: current substance use type: does not use caffeine: No Type(s) of exercise: none Smoking Status: Never smoker alcohol intake frequency: holidays/special occasions only Exam Narrative Exam Narrative: General: Cooperative, well-developed, not in acute distress HEENT: Normocephalic, atraumatic, PERRLA, normal sclera, eyelids normal Neck: Active full range of motion, atraumatic Chest: Normal to inspection, negative crepitus, no overlying erythema ecchymosis Respiratory: Normal respiratory effort, not in acute respiratory distress, clear to auscultation bilaterally negative cough, wheeze, tachypnea, rhonchi, rales Cardiology: Regular rate rhythm negative gallop, murmur, rubs GI/: No tenderness to palpation, soft, non rigid, normal to inspection, exam deferred MSK: Full active range of motion in all 4 extremities, atraumatic, no tenderness to palpation of any bony prominences Skin: No rashes or lesions noted Neuro: Alert awake oriented x3, moves all 4 extremities spontaneously, cranial nerves intact, able to answer all questions appropriately follows commands appropriately Psych: Cooperative, negative suicidal or homicidal ideations Initial Vital Signs Initial Vital Signs: Vital Signs Temperature 98.7 F 04/04/25 16:57 Pulse Rate 90 04/04/25 16:57 Respiratory Rate 20 04/04/25 16:57 Blood Pressure 116/75 04/04/25 16:57 Pulse Oximetry 99 04/04/25 16:57 Oxygen Delivery Method Room Air 04/04/25 16:57 Course Orders Ordered: ED Orders 04/04/25 17:05 EKG-12 Lead Stat 04/04/25 17:20 Complete Blood Count AUTO DIFF Stat Comprehensive Metabolic Panel Stat Lipase Stat Sodium Chloride (Normal Saline 0.9%) 1,000 mls @ 1,000 mls/hr IV BOLUS ONE Stop: 04/04/25 18:24 Last Admin: 04/04/25 17:27 Dose: 1,000 mls/hr Documented By: SONAM Sodium Chloride (Normal Saline 0.9%) 1,000 mls @ 1,000 mls/hr IV BOLUS ONE Stop: 04/04/25 18:50 Ondansetron HCl (Ondansetron 4 Mg/2 Ml Inj) 4 mg IV NOW PRN PRN Reason: Nausea And Vomiting Last Admin: 04/04/25 17:23 Dose: 4 mg Documented By: SONAM Ondansetron HCl (Ondansetron 4 Mg Odt) 4 mg PO NOW PRN PRN Reason: Nausea And Vomiting Discontinued Medications Sodium Chloride (Normal Saline 0.9%) 500 mls @ 1,000 mls/hr IV BOLUS ONE Stop: 04/04/25 17:53 Last Admin: 04/04/25 17:28 Dose: Not Given Documented By: SONAM Ondansetron HCl (Ondansetron 4 Mg/2 Ml Inj) 4 mg IV NOW ONE Stop: 04/04/25 17:52 Vital Signs Vital signs: Vital Signs - 8 hr 04/04/25 16:57 Temperature 98.7 F Pulse Rate 90 Respiratory Rate 20 Blood Pressure 116/75 Pulse Oximetry 99 Oxygen Delivery Method Room Air MDM - Abdominal Pain Differential Diagnosis Differential diagnosis: Likely abdominal pain, acute appendicitis, calculus of kidney, constipation, diverticulitis, pancreatitis and other (Electrolyte abnormality, urinary tract infection, pyelonephritis) Lab Data 04/04/25 17:20 04/04/25 17:20 Labs: Lab Results 04/04/25 Range/Units 17:20 WBC 5.7 (4.5-11.0) X10^3/uL RBC 4.85 (4.5-5.9) X10^6/uL Hgb 14.2 (13.5-17.5) g/dL Hct 40.3 L (41-53) % MCV 83.1 (80-100) fL MCH 29.2 (26-34) PG MCHC 35.1 (30-36) % RDW 12.8 (11.6-14.8) % Plt Count 171 (150-400) X10^3/uL Neut % (Auto) 63.5 (50-75) % Lymph % (Auto) 27.6 (25-40) % Graham % (Auto) 6.9 (3-14) % Eos % (Auto) 1.6 L (2-4) % Baso % (Auto) 0.4 (0-2) % Neut # (Auto) 3600 (6421-1460) /uL Lymph # (Auto) 1600 (4860-7654) /uL Graham # (Auto) 400 (0-900) /uL Eos # (Auto) 100 (0-450) /uL Baso # (Auto) 0 (0-100) /uL Sodium 139 (137-145) mmol/L Potassium 4.1 (3.4-5.1) mmol/L Chloride 100 (98-107) mmol/L Carbon Dioxide 25 (22-32) mmol/L BUN 21 H (9-20) mg/dL Creatinine 0.94 (0.66-1.25) mg/dL Estimated GFR > 60 (>60) mL/min BUN/Creatinine Ratio 22.3 H (6-22) Glucose 128 H (70-99) mg/dL Calcium 10.7 H (8.4-10.2) mg/dL Total Bilirubin 1.0 (0.2-1.3) mg/dL AST 49 (17-59) IU/L ALT 25 (<50) IU/L Alkaline Phosphatase 34 L (38-126) U/L Total Protein 7.8 (6.3-8.2) g/dL Albumin 5.1 H (3.5-5.0) g/dL Globulin 2.7 (1.7-4.1) g/dL Albumin/Globulin Ratio 1.9 (1.0-2.8) Lipase 69 (23-300) U/L Imaging Data CT scan - abdomen/pelvis: Radiologist's Impression: [address] [address] [address] Scan Report Signed Patient: Bill Monique MR#: [id number] : 1990 Acct:[id number] Age/Sex: 34 / M Date of Service: 04/04/25 Loc: ED Accession Number: [id number] Procedure: CT abdomen pelvis w con Ordering Provider: Romel Pandey D.O. PROCEDURE: CT ABDOMEN PELVIS W CON INDICATIONS: RLQ abd pain, recent kidney stent placed TECHNIQUE: After the administration of intravenous contrast, axial sections acquired from the lung bases to the pubic symphysis. Coronal and sagittal reformats were performed. For radiation dose reduction, the following was used: automated exposure control, adjustment of mA and/or kV according to patient size. COMPARISON: [facility], CT, CT ABDOMEN PELVIS W CON, 09/05/2019, 5:04. FINDINGS: Image quality: Diagnostic. Lower Chest: No significant findings. ABDOMEN: Liver: No mass. Hepatic steatosis. Gallbladder: No radiopaque gallstones or wall thickening. Biliary ducts: No biliary dilation. Pancreas: No ductal dilation. Spleen: Size is within normal limits. Adrenal Glands: No adrenal nodules. Kidneys and Ureters: Mild right-sided hydronephrosis. There is a double J ureteral stent within the right renal pelvis extending to the bladder. At the mid to distal ureter there is a partially obscured renal stone measuring approximately 7 mm. Additional nonobstructive stones within the right renal pelvis including at least 3 stones, the largest measuring approximately 6 mm. No significant left-sided hydronephrosis or stone identified. Stomach and Bowel: Normal colonic caliber, without significant wall thickening. Colonic diverticulosis without evidence of acute diverticulitis. Peritoneum: No abnormal intraperitoneal fluid. No free air. Ventral Wall: No significant ventral hernia. Abdominal Nodes: No retroperitoneal or mesenteric adenopathy by size criteria. Vessels: Aorta and inferior vena cava are normal in size. PELVIS: Pelvic Organs: Unremarkable. Bladder: No bladder wall thickening, accounting for underdistention. Pelvic Nodes: No enlarged lymph nodes. Miscellaneous: No inguinal hernias are seen. Bones: No aggressive osseous abnormality. IMPRESSION: 1. Right-sided double-J stent with a stone within the mid ureter resulting in mild hydronephrosis and right-sided perinephric fat stranding. 2. Additional nonobstructive right renal stones. 3. Hepatic steatosis. MDM Narrative Medical decision making narrative: Patient is a 34-year-old male history of kidney stones, diabetes, hyperlipidemia, presenting for right lower quadrant abdominal pain nausea and vomiting ongoing persistent past few days, to note he states that on Sunday of this week he did have a stent placed for his known kidney stone, since then his symptoms started, does admit to some urinary hesitancy otherwise not complaining of any other symptoms. Patient lab work not remarkable for leukocytosis, GFR greater than 60, creatinine 0.94, patient states that he is currently on levofloxacin 500 mg daily, states he still has 2 days, this was prescribed to him by Dr. Lenz (of Urology). Patient states that he did take the levofloxacin this morning but states that he is not sure ?how much he absorbed because he did throw up a little after. Patient's urinalysis does have positive leuks, however patient with stent however we will give dose of IV antibiotic. CT scan without any acute findings, stent in place without any acute findings, patient with improved symptoms after administration medication here, he is instructed to follow up with his primary care doctor and his urologist for his scheduled appointment, he states that he has lithotripsy scheduled in the next week. Discharge Plan Departure Patient Disposition: Home Clinical Impression: Nausea & vomiting Instructions: DI for Kidney Stones Activity Restrictions/Additional Instructions: Please follow up with your urologist and your primary care doctor Continue taking your antibiotics as prescribed Please read the discharge instructions sheet carefully and bring all papers to all doctor follow-up visits, as it may contain information that your doctor may want to see. Disease processes change and evolve, if your symptoms worsen or if you develop any new symptoms that are concerning to you please return for evaluation. Your evaluation today does not show any evidence of any life-threatening/serious illnesses requiring admission to the hospital or surgery. Please follow-up with your doctor for re-evaluation in approximately 1 day. Seek immediate medical attention for any worrisome symptoms. *If you do not have a primary care provider please contact the [facility] Resource line at [phone]. They will ask some questions about your medical history and help get you set up with a doctor in the community. Prescriptions: New ondansetron 4 mg tablet,disintegrating 4 mg PO Q8H PRN (Reason: nausea and vomiting) 7 Days Qty: 21 0RF No Action losartan 25 mg tablet 25 mg PO DAILY aripiprazole 5 mg tablet 5 mg PO DAILY Qty: 90 1RF quetiapine 25 mg tablet 75 mg PO QPM Qty: 270 0RF benztropine 1 mg tablet 1 mg PO BID Qty: 180 1RF lorazepam 1 mg tablet 1 mg PO PRN PRN (Reason: dystonia/catonia) Qty: 30 0RF sertraline 25 mg tablet 25 mg PO DAILY Qty: 90 1RF (DME) blood-glucose meter Misc See Rx Instructions .ROUTE .MEDSUPPLY Qty: 1 0RF Rx Instructions: Use to test blood glucose BID (DME) lancets [BD Ultra Fine Lancets] 33 gauge misc See Rx Instructions .ROUTE .MEDSUPPLY Qty: 100 6RF Rx Instructions: Use to test blood glucose twice daily (DME) Blood Glucose Test Strip See Rx Instructions .ROUTE .MEDSUPPLY Qty: 100 6RF Rx Instructions: Use to test blood glucose twice daily. (DME) FreeStyle Alyssa 2 Sensor Kit See Rx Instructions .ROUTE .COMPLEX Qty: 1 3RF Dose Instruction: USE DIRECTED. CHANGE EVERY 14 DAYS. Rx Instructions: USE DIRECTED. CHANGE EVERY 14 DAYS. pioglitazone [Actos] 15 mg tablet 15 mg PO DAILY Qty: 90 1RF (DME) FreeStyle Alyssa 3 Plus Sensor Device See Rx Instructions .Route Qty: 3 3RF Rx Instructions: change every 15 days as directed by package insert for cont monitoring of blood glucose fenofibrate nanocrystallized 145 mg tablet 145 mg PO DAILY Qty: 90 0RF metformin 1,000 mg tablet 1,000 mg PO BID Qty: 180 2RF (DME) lancets [BD Ultra Fine Lancets] 33 gauge misc See Rx Instructions .ROUTE .MEDSUPPLY Qty: 100 Rx Instructions: As directed melatonin 5 mg tablet 5 mg PO BEDTIME PRN (Reason: insomnia) (DME) FreeStyle Alyssa 3 [place] Misc See Rx Instructions .Route Qty: 1 0RF Rx Instructions: use to continuously read blood sugars Mounjaro 7.5 mg/0.5 mL pen injector 7.5 mg SUBCUT WEEKLY Patient Comments: [NO ORIGINAL SIG] cyanocobalamin (vitamin B-12) [Vitamin B-12] 1,000 mcg Tablet 1,000 mcg PO DAILY diphenhydramine HCl 25 mg Capsule 50 mg PO PRN PRN (Reason: dystonia/catonia) Patient Comments: when symptoms begin omega 7-mxl-ckq-fish oil [Fish Oil] 1,000 mg (120 mg-180 mg) Capsule 2,000 mg PO BID magnesium citrate 400 mg 400 mg PO QPM divalproex [Depakote ER] 500 mg tablet extended release 24 hr 1,500 mg PO BEDTIME oxycodone 5 mg tablet 5 mg PO Q8H PRN (Reason: pain (scale score 7-10)) Qty: 7 0RF levofloxacin 500 mg tablet 500 mg PO DAILY Qty: 5 0RF Rx Instructions: take one tab daily beginning on 01 Apr 2025 Referrals: Vernon Cornell DO [Primary Care Provider, Family Practice] Stand Alone Forms: Patient Portal/API
--- NOTE | 2025-04-04 18:13 | DI.CT.S_ITS ---
PROCEDURE: CT ABDOMEN PELVIS W CON INDICATIONS: RLQ abd pain, recent kidney stent placed TECHNIQUE: After the administration of intravenous contrast, axial sections acquired from the lung bases to the pubic symphysis. Coronal and sagittal reformats were performed. For radiation dose reduction, the following was used: automated exposure control, adjustment of mA and/or kV according to patient size. COMPARISON: [facility], CT, CT ABDOMEN PELVIS W CON, 09/05/2019, 5:04. FINDINGS: Image quality: Diagnostic. Lower Chest: No significant findings. ABDOMEN: Liver: No mass. Hepatic steatosis. Gallbladder: No radiopaque gallstones or wall thickening. Biliary ducts: No biliary dilation. Pancreas: No ductal dilation. Spleen: Size is within normal limits. Adrenal Glands: No adrenal nodules. Kidneys and Ureters: Mild right-sided hydronephrosis. There is a double J ureteral stent within the right renal pelvis extending to the bladder. At the mid to distal ureter there is a partially obscured renal stone measuring approximately 7 mm. Additional nonobstructive stones within the right renal pelvis including at least 3 stones, the largest measuring approximately 6 mm. No significant left-sided hydronephrosis or stone identified. Stomach and Bowel: Normal colonic caliber, without significant wall thickening. Colonic diverticulosis without evidence of acute diverticulitis. Peritoneum: No abnormal intraperitoneal fluid. No free air. Ventral Wall: No significant ventral hernia. Abdominal Nodes: No retroperitoneal or mesenteric adenopathy by size criteria. Vessels: Aorta and inferior vena cava are normal in size. PELVIS: Pelvic Organs: Unremarkable. Bladder: No bladder wall thickening, accounting for underdistention. Pelvic Nodes: No enlarged lymph nodes. Miscellaneous: No inguinal hernias are seen. Bones: No aggressive osseous abnormality. IMPRESSION: 1. Right-sided double-J stent with a stone within the mid ureter resulting in mild hydronephrosis and right-sided perinephric fat stranding. 2. Additional nonobstructive right renal stones. 3. Hepatic steatosis. Dictated by: Juan Jackman M.D. on 04/04/2025 at 17:51 Approved by: Juan Jackman M.D. on 04/04/2025 at 18:00
[2025-04-04 18:34] LABS: Magnesium 1.8 mg/dL (1.6-2.3)
[2025-04-04 18:50] LABS: Appearance Urine UA CLOUDY; Bilirubin Urine UA NEGATIVE (NEGATIVE); Color Urine UA RED; Glucose Urine UA NEGATIVE (Negative); Ketones Urine UA NEGATIVE (NEGATIVE); Leukocyte Esterase Urine UA 1+ (NEGATIVE); Nitrite Urine UA NEGATIVE (Negative); Occult Blood Urine UA 3+ (Negative); Protein Urine UA 2+ (Negative); Specific Gravity Urine UA 1.010 (1.000-1.035); Urobilinogen Urine UA 0.2 E.U./dL (0.2); pH Urine UA 7.0 (4.5-8.0)
[2025-04-04 18:58] LABS: Culture Indicated Urine Specimen Cultured
== END 2025-04-04 19:52 | disposition home or self-care (01) ==
PROVIDERS: Emergency Medicine; Emergency Provider Student in an Organized Health Care Education/Training Program; PCP Family Medicine
DX: R11.2 Nausea with vomiting, unspecified (principal); N20.0 Calculus of kidney; Z87.442 Personal history of urinary calculi
CPT/HCPCS: 74177; 80053; 81001; 81003; 83690; 83735; 85025; 87086; 96361; 96365; 96375; 99283; 99284; J0696; J2405; Q9967

== ENCOUNTER → 2025-06-03 11:00 | Outpatient (CLI) | payer MEDICARE, SELFPAY ==
[2025-06-03 12:47] LABS: Hemoglobin A1C% w Est Avg Glu 5.5 % (4.0-6.0)
[2025-06-03 13:14] LABS: Alanine Aminotransferase 28 IU/L (<50); Albumin 5.2 g/dL (3.5-5.0); Albumin Globulin Ratio 2.2 (1.0-2.8); Alkaline Phosphatase 42 U/L (38-126); Blood Urea Nitrogen 21 mg/dL (9-20); Calcium 10.1 mg/dL (8.4-10.2); Carbon Dioxide 22 mmol/L (22-32); Chloride 105 mmol/L (98-107); Estimated Glomerular Filt Rate > 60 mL/min (>60); Globulin 2.4 g/dL (1.7-4.1); Glucose 145 mg/dL (70-99); HEMOLYSIS < 15 (0-50); Potassium 4.4 mmol/L (3.4-5.1); Sodium 141 mmol/L (137-145); Total Protein 7.6 g/dL (6.3-8.2)
== END ==
PROVIDERS: PCP Family Medicine; Referring Provider Family Medicine; Visit Provider Family Medicine
DX: E11.9 Type 2 diabetes mellitus without complications (principal)
CPT/HCPCS: 36415; 80053; 83036

== ENCOUNTER → 2025-07-24 14:39 | Outpatient (CLI) | payer MEDICARE, SELFPAY ==
--- NOTE | 2025-07-24 14:40 | DI.US.S_ITS ---
PROCEDURE: US RENAL COMPLETE INDICATIONS: 34 y/o M s/p right ureteroscopy for stone, eval for hydro TECHNIQUE: Real-time scanning was performed of the kidneys and bladder, with image documentation. COMPARISON: None. FINDINGS: Kidneys: Kidneys are normal in size. Right kidney measures 12.7 cm long; left kidney measures 15.3 cm long. Right renal cortical thickness is 1.7 cm; left renal cortical thickness is 1.7 cm. Renal cortical echotexture is normal. No hydronephrosis or nephrolithiasis. No suspicious solid mass lesions. A 1.3 cm cyst in the right lower pole. Bladder: Sonographically normal appearance of the urinary bladder with bilateral jet seen. Miscellaneous: No free pelvic fluid. IMPRESSION: No hydronephrosis or nephrolithiasis. Dictated by: Usama Oakes M.D. on 07/24/2025 at 15:19 Approved by: Usama Oakes M.D. on 07/24/2025 at 15:21
== END ==
LOC: US 14:40
PROVIDERS: PCP Family Medicine; Referring Provider Urology; Visit Provider Urology
DX: N20.1 Calculus of ureter (principal); N28.1 Cyst of kidney, acquired
CPT/HCPCS: 76770